=== PATIENT | female | born 1945 | race American Indian/Alaskan Native ===

== ENCOUNTER 2018-07-26 10:26 | Inpatient (IN) | payer MEDICARE ==
[2018-07-26] MEDS ORDERED: Albuterol-Ipratrop 3 mg / 0.5 (3 ml) UD IH STA (10:41)
[2018-07-26 11:10] LABS: EOS % 0.1 % (1.5-5.0); GRAN # 7.51 (1.4-6.5); GRAN % 81.1 % (50.0-68.0); HEMOGLOBIN 11.7 g/dL (12.0-16.0); MEAN CELL VOLUME 101.2 fl (80.0-105.0); MEAN CORPUSCULAR HEMOGLOBIN 27.7 pg (25.0-35.0); MEAN CORPUSCULAR HGB CONC 27.4 g/dl (31.0-37.0); MEAN PLATELET VOLUME 10.4 fl (7.0-11.0); MONO # 0.7 (0.1-0.6); MONO % 7.8 % (1.0-6.0); RBC 4.22 10^6/uL (3.5-6.1); RED CELL DISTRIBUTION WIDTH 15.2 % (11.5-14.5); WHITE BLOOD COUNT 9.3 10^3/uL (4.5-11.0)
[2018-07-26 11:15] LABS: VENOUS BLOOD GAS BASE EXCESS 18.9 mmol/L (0.0-2.0); VENOUS BLOOD GAS PO2 48 mm/Hg (30-55)
[2018-07-26 11:18] LABS: VENOUS BLOOD PH 7.18 (7.32-7.43)
[2018-07-26 11:19] LABS: INR 1.14; PARTIAL THROMBOPLASTIN TIME 35.7 Seconds (25.1-36.5); PROTHROMBIN TIME 13.1 SECONDS (9.4-12.5)
[2018-07-26 11:34] LABS: TROPONIN I 0.03 ng/mL
[2018-07-26 11:36] LABS: URINE BILIRUBIN SMALL (NEGATIVE); URINE BLOOD SMALL (NEGATIVE); URINE GLUCOSE (UA) NEGATIVE (NEGATIVE); URINE LEUKOCYTE ESTERASE NEGATIVE Leu/uL (NEGATIVE); URINE PROTEIN 100 mg/dL (<30 mg/dL); URINE UROBILINOGEN 0.2 E.U./dL (<1 E.U./dL)
[2018-07-26 11:38] LABS: URINE APPEARANCE CLEAR (CLEAR); URINE COLOR YELLOW (YELLOW)
[2018-07-26 11:48] LABS: URINE BACTERIA TRACE (NEG); URINE EPITHELIAL CELLS 0 - 2 /hpf (0-5); URINE HYALINE CAST 0 - 2 /hpf; URINE WBC NEGATIVE /hpf (0-6)
[2018-07-26 11:54] LABS: ALBUMIN 3.6 g/dL (3.0-4.8); ALT/SGPT 38 U/L (7-56); AST/SGOT 54 U/L (14-36); BLOOD UREA NITROGEN 20 mg/dL (7-21); CALCIUM 9.2 mg/dL (8.4-10.5); GFR NON-AFRICAN AMERICAN > 60
--- NOTE | 2018-07-26 12:06 | CT ---
Date of service: 07/26/2018 PROCEDURE: CT HEAD WITHOUT CONTRAST. HISTORY: weak COMPARISON: None available. TECHNIQUE: Axial computed tomography images were obtained through the head/brain without intravenous contrast. Radiation dose: Total exam DLP = 946.24 mGy-cm. This CT exam was performed using one or more of the following dose reduction techniques: Automated exposure control, adjustment of the mA and/or kV according to patient size, and/or use of iterative reconstruction technique. FINDINGS: HEMORRHAGE: No intracranial hemorrhage. BRAIN: The patel-white matter differentiation is well preserved. There is no mass effect or definitive edema pattern appreciated including the cortex. There is proportional expansion of the ventriculosulcal and cisternal spaces however in a pattern most compatible with diffuse cerebral atrophy. No suspicious extra-axial fluid collection is identified in the midline brain anatomy appears grossly nonfocal as imaged. VENTRICLES: Unremarkable. No hydrocephalus. CALVARIUM: Unremarkable. PARANASAL SINUSES: Pattern suspicious for prior left middle turbinectomy and nasal antrostomy. Limited volume is seen related to the left maxillary sinus with partial opacification noted. MASTOID AIR CELLS: Unremarkable as visualized. No inflammatory changes. OTHER FINDINGS: None. IMPRESSION: Limited diffuse cerebral atrophy with no acute intracranial findings appreciable. Questionable postop change left middle turbinates and maxillary ostium with partial calcification of a small appearing left maxillary sinus noted.
--- NOTE | 2018-07-26 12:17 | ED PDOC ---
Arrival/HPI - General Chief Complaint: Shortness Of Breath Time Seen by Provider: 07/26/18 10:30 Historian: Patient EM Caveat: Other (confused) - History of Present Illness Narrative History of Present Illness (Text): 07/26/18 12:27 73 year old female, who presents to the emergency department complaining of shortness of breath earlier this morning. Neighbor found patient on the floor and called 911. Patient states she did not lose consciousness, she just sat herself on the floor because she was having trouble breathing. She uses an oxygen at home. Patient denies smoking or ETOH abuse. Patient seems confused and has never been to this hospital before. HPI and ROS are limited due to patients clinical condition. Time/Duration: Prior to Arrival Symptom Onset: Gradual Symptom Course: Unchanged Activities at Onset: Light Context: Home Associated Symptoms (Text): 07/26/18 12:49 very poor historian. Arrived via ambulance. Neighbor called 911 when she found patient on the floor. Past Medical History - Provider Review Nursing Documentation Reviewed: Yes - Infectious Disease Hx of Infectious Diseases: None - Reproductive Menopause: Yes - Cardiac Hx Congestive Heart Failure: Yes - Pulmonary Hx Chronic Obstructive Pulmonary Disease (COPD): Yes - Psychiatric Hx Substance Use: No - Anesthesia Hx Anesthesia: No Family/Social History - Physician Review Nursing Documentation Reviewed: Yes Family/Social History: No Known Family HX Smoking Status: Former Smoker Hx Alcohol Use: No Hx Substance Use: No Allergies/Home Meds Allergies/Adverse Reactions: Allergies No Known Allergies Allergy (Verified 07/26/18 10:39) Review of Systems - Review of Systems Systems not reviewed;Unavailable: Other (confused) Respiratory: SOB Physical Exam Vital Signs Reviewed: Yes Vital Signs Temp Pulse Resp BP Pulse Ox 07/26/18 12:01 97.5 F L 75 20 101/60 95 07/26/18 10:26 96 F L 85 28 H 129/70 86 L Temperature: Afebrile Blood Pressure: Normal Pulse: Regular Respiratory Rate: Tachypneic Appearance: Positive for: Well-Appearing, Non-Toxic, Comfortable, Other (obese) Pain Distress: None Mental Status: Positive for: Confused - Systems Exam Head: Present: Atraumatic, Normocephalic Pupils: Present: PERRL Extroacular Muscles: Present: EOMI Conjunctiva: Present: Normal Mouth: Present: Moist Mucous Membranes Pharnyx: No: ERYTHEMA, EXUDATE, TONSILS ENLARGED Neck: Present: Normal Range of Motion Respiratory/Chest: Present: Respiratory Distress (mild respiratory distress), Wheezes (mild wheezes bilaterally ), Decreased Breath Sounds. No: Accessory Muscle Use, Rales, Retracting, Rhonchi, Tender to Palpation Cardiovascular: Present: Regular Rate and Rhythm, Normal S1, S2. No: Murmurs Abdomen: No: Tenderness, Distention, Peritoneal Signs Back: Present: Normal Inspection Upper Extremity: Present: Normal Inspection. No: Cyanosis, Edema Lower Extremity: Present: Normal Inspection. No: Edema, CALF TENDERNESS Neurological: Present: GCS=15, CN II-XII Intact, Speech Normal, Motor Func Grossly Intact Skin: Present: Warm, Dry, Normal Color. No: Rashes Psychiatric: Present: Alert Medical Decision Making ED Course and Treatment: 07/26/18 12:14 Impression: 73 year old female who presents to the emergency department complaining of shortness of breath. Plan: -- VBG -- Head CT w/o contrast -- EKG -- Labs -- Chest X-ray -- Duoneb -- Fernández -- Urinalysis -- Urinalysis w/ micro -- Reassess and disposition Progress Notes: 07/26/18 12:[address] reviewed by radiologist, shows: IMPRESSION: Limited diffuse cerebral atrophy with no acute intracranial findings appreciable. Questionable postop change left middle turbinates and maxillary o stium with partial calcification of a small appearing left maxillary sinus noted. 07/26/18 12:50 EKG shows normal sinus rhythm rate approximately [address] or T-wave changes. 07/26/18 13:34 Chest X-ray reviewed by radiologist, shows: IMPRESSION: No active disease. - Lab Interpretations Lab Results: 07/26/18 10:55 07/26/18 10:55 Lab Results 07/26/18 11:30: Urine Color Yellow, Urine Appearance Clear, Urine pH 6.0, Ur Specific [place] >= 1.030, Urine Protein 100 H, Urine Glucose (UA) Negative, Urine Ketones 15 H, Urine Blood Small H, Urine Nitrate Negative, Urine Bilirubin Small H, Urine Urobilinogen 0.2, Ur Leukocyte Esterase Negative, Urine RBC 1 - 3, Urine WBC Negative, Ur Epithelial Cells 0 - 2, Urine Bacteria Trace, Hyaline Casts 0 - 2 07/26/18 10:55: pO2 48, VBG pH 7.18 L*, VBG pCO2 145.0 H*, VBG HCO3 54.1 H, VBG Total CO2 58.6 H, VBG O2 Sat (Calc) 79.6 H, VBG Base Excess 18.9 H, VBG Potassium 4.1, Sodium 145.0, Chloride 99.0, Glucose 103, Lactate 1.4, FiO2 21.0, Venous Blood Potassium 4.1 07/26/18 10:55: Alcohol, Quantitative < 10 07/26/18 10:55: Sodium 144, Chloride 94 L, Potassium 4.2, Carbon Dioxide 49 H, Anion Gap 5 L, BUN 20, Creatinine 0.9, Est GFR ( Amer) > 60, Est GFR (Non-Af Amer) > 60, Random Glucose 107, Calcium 9.2, Phosphorus 4.4, Magnesium 2.2, Total Bilirubin 0.6, AST 54 H, ALT 38, Alkaline Phosphatase 116, Lactate Dehydrogenase 587, Total Creatine Kinase 170, Troponin I 0.03, Total Protein 7.4, Albumin 3.6, Globulin 3.8, Albumin/Globulin Ratio 1.0 L 07/26/18 10:55: PT 13.1 H, INR 1.14, APTT 35.7 07/26/18 10:55: WBC 9.3, RBC 4.22, Hgb 11.7 L, Hct 42.7, MCV 101.2, MCH 27.7, MCHC 27.4 L, RDW 15.2 H, Plt Count 171, MPV 10.4, Gran % 81.1 H, Lymph % (Auto) 11.0 L, Arroyo % (Auto) 7.8 H, Eos % (Auto) 0.1 L, Baso % (Auto) 0.0, Gran # 7.51 H, Lymph # (Auto) 1.0 L, Arroyo # (Auto) 0.7 H, Eos # (Auto) 0.0, Baso # (Auto) 0.00 I have reviewed the lab results: Yes - RAD Interpretation Radiology Orders: 07/26/18 10:39 HEAD W/O CONTRAST [CT] Stat 07/26/18 10:40 CHEST PORTABLE [RAD] Stat Photogrammetry Airplane Pilot: Radiologist - EKG Interpretation Interpreted by ED Physician: Yes Type: 12 lead EKG - Medication Orders Current Medication Orders: Discontinued Medications Albuterol/Ipratropium (Duoneb 3 Mg/0.5 Mg (3 Ml) Ud) 3 ml IH ONCE STA Stop: 07/26/18 10:42 Last Admin: 07/26/18 11:03 Dose: 3 ml - Scribe Statement The provider has reviewed the documentation as recorded by the Vanibsaad Bailey Provider Scribe Attestation: All medical record entries made by the Scribe were at my direction and personally dictated by me. I have reviewed the chart and agree that the record accurately reflects my personal performance of the history, physical exam, medical decision making, and the department course for this patient. I have also personally directed, reviewed, and agree with the discharge instructions and disposition. Disposition/Present on Arrival - Present on Arrival Any Indicators Present on Arrival: No History of DVT/PE: No History of Uncontrolled Diabetes: No Urinary Catheter: No History of Decub. Ulcer: No History Surgical Site Infection Following: None - Disposition Have Diagnosis and Disposition been Completed?: Yes Diagnosis: Dyspnea, Dementia, Altered mental status, COPD exacerbation, Weakness Disposition: HOSPITALIZED Disposition Time: 13:09 Patient Plan: Observation Patient Problems: Current Active Problems Problem Status Onset Altered mental status Acute COPD exacerbation Acute Dementia Acute Dyspnea Acute Weakness Acute Condition: FAIR
--- NOTE | 2018-07-26 13:33 | RAD ---
Date of service: 07/26/2018 HISTORY: weak COMPARISON: 03/25/2018 FINDINGS: LUNGS: No active pulmonary disease. PLEURA: No significant pleural effusion identified, no pneumothorax apparent. CARDIOVASCULAR: No aortic atherosclerotic calcification present. Moderate cardiomegaly and aortic tortuosity no pulmonary vascular congestion. OSSEOUS STRUCTURES: No significant abnormalities. VISUALIZED UPPER ABDOMEN: Normal. OTHER FINDINGS: None. IMPRESSION: No active disease.
[2018-07-26] MEDS ORDERED: Albuterol-Ipratrop 3 mg / 0.5 (3 ml) UD ONE (16:11)
[2018-07-26 17:35] VITALS: BMI 37.5
[2018-07-26] MEDS ORDERED: Pneumococcal 23-Valent Vaccine IM ONE (17:35)
[2018-07-26] MEDS ORDERED: Influenza Vaccine 60 mcg/0.5 mL SYR (4YR UP) IM ONE (17:35)
[2018-07-26] MEDS: Albuterol-Ipratrop 3 mg / 0.5 (3 ml) UD IH SCH (18:59)
[2018-07-26] MEDS: MethylPREDNISolone 40 mg Vial IVP SCH (22:24)
--- NOTE | 2018-07-26 23:50 | CON ---
DATE: 07/26/2018 PULMONARY CONSULTATION REFERRING PHYSICIAN: Dr. Martinez REASON FOR CONSULT: Chronic lung disease, may have sleep apnea syndrome. HISTORY OF PRESENT ILLNESS: This is a 73-year-old female with past medical history significant for chronic obstructive lung disease, also history of leg swelling in the past, apparently had a fall at home sitting on the floor, neighbors called 911 and brought her to ER. Been having cough and shortness of breath. No chest pain. No abdominal pain. No dysuria. Has leg swelling. Admitted to have snoring and daytime sleepiness. PAST MEDICAL HISTORY: Chronic lung disease, obesity. ALLERGIES: NONE KNOWN. SOCIAL HISTORY: Stopped smoking many years ago. Denied any alcohol use. FAMILY HISTORY: No significant cardiopulmonary disease reported. MEDICATIONS: She is on DuoNeb every 6 hours, Pepcid 40 mg daily, Solu-Medrol 40 mg every 12 hours, Tylenol p.r.n. basis. REVIEW OF SYSTEM: No headache. Had some rhinitis, cough, shortness of breath. No chest pain. No abdominal pain. No dysuria. Does have leg swelling. Admitted to have snoring, daytime sleepy. PHYSICAL EXAMINATION: GENERAL: No acute distress. VITAL SIGNS: Temp is 98, heart rate is 95, respiratory rate is 24, blood pressure 140/71, pulse ox 95% on nasal cannula. HEENT: Moist mucous membrane. Crowded airway. Mallampati score is 4. NECK: Supple. No JVD. LUNGS: Have scattered rhonchi and few wheezing. HEART: S1 and S2. ABDOMEN: Soft, nontender, nondistended. EXTREMITIES: Does have edema. NEUROLOGIC: Awake, alert, follows simple commands. LABORATORY DATA: Shows hemoglobin 11.7, hematocrit 42.7, WBC 9.3, platelet is 171. INR 1.14, PTT is 36. Blood gases, VBG shows pH 7.18, pCO2 is 148 and O2 is 48. Sodium 144, potassium 4.2, chloride 94, bicarbonate 49, BUN 20, creatinine 0.9, glucose 107, calcium 9.2, phosphorus 4.2, magnesium 2.2, total bili 0.6, AST 54, ALT 38, alk phos is 116. Troponin 0.03. Albumin 3.6. Urinalysis shows blood is small, wbc's negative. Alcohol level is zero. CAT scan of the head is done which shows partial opacification and a small appearing left maxillary sinus. Chest x-ray shows no active disease. IMPRESSION AND PLAN: Chronic obstructive lung disease, status post fall, rule out sinusitis, may have sleep apnea syndrome, hypoventilation syndrome. Case discussed with Dr. Martinez. Continue steroids. Add inhaled bronchodilators. Antibiotics, gastric prophylaxis, deep venous thrombosis prophylaxis. We will place her on BiPAP of 12/6 with 40% oxygen. Follow up ABG, chest x-ray, CBC, CMP in the morning. We will also order BNP, procalcitonin, echocardiogram. The patient should be on monitored floor with CO2 retention and acidosis. Thank you and we will follow with you. Oh Gonzáles MD
[2018-07-27] MEDS: Albuterol-Ipratrop 3 mg / 0.5 (3 ml) UD IH SCH ×4 (01:28→21:18)
--- NOTE | 2018-07-27 07:55 | CARD ---
APPROVED REPORT Date of service: 07/26/2018 EKG Measurement Heart [id number] <Conclusion> Normal sinus rhythm NSSTW changes Baseline artifact
[2018-07-27 07:58] LABS: HEMOGLOBIN 11.1 g/dL (12.0-16.0); MEAN CELL VOLUME 98.8 fl (80.0-105.0); MEAN CORPUSCULAR HEMOGLOBIN 27.3 pg (25.0-35.0); MEAN CORPUSCULAR HGB CONC 27.6 g/dl (31.0-37.0); RBC 4.07 10^6/uL (3.5-6.1); RED CELL DISTRIBUTION WIDTH 15.1 % (11.5-14.5); WHITE BLOOD COUNT 7.3 10^3/uL (4.5-11.0)
[2018-07-27 07:59] LABS: IRON 46 ug/dL (45-180)
[2018-07-27 08:06] LABS: B-TYPE NATRIURETIC PEPTIDE 807 pg/mL (0-450)
[2018-07-27 08:09] LABS: % IRON SATURATION 18 % (20-55); TOTAL IRON BINDING CAPACITY 259 ug/dL (265-497)
--- NOTE | 2018-07-27 08:09 | HP ---
DATE OF EXAM: 07/26/2018 CHIEF COMPLAINT: Shortness of breath and coughing. HISTORY OF PRESENT ILLNESS: Ms Maricel Woody is a 73 years old female with history of asthma, came to emergency department complaining of shortness of breath; neighbor found the patient on the floor, called 911. The patient states that she did not lose consciousness. She just sat herself on the floor because she was having trouble breathing. She uses oxygen at home. The patient denies smoking or ethanol. The patient seems confused, but has never been to this hospital before. No fevers. No chills. No hematuria or hematochezia. PAST MEDICAL HISTORY: COPD, congestive heart failure, obesity. HABITS: Never smoked. No drugs. No ethanol. ALLERGIES: PATIENT IS NOT ALLERGIC WITH ANY MEDICATIONS. REVIEW OF SYSTEMS: The patient was seen and examined at bedside in the emergency room, having shortness of breath, looks little bit confused. No fevers, no chills. No hematuria or hematochezia. No headache, no dizziness. PHYSICAL EXAMINATION: VITAL SIGNS: Temperature 97.5, pulse 75, respiratory rate 20, blood pressure 101/60, pulse oximetry 95%. HEENT: Head: Normocephalic, atraumatic. Eyes: PERRLA. Extraocular muscles are intact. Conjunctivae clear. Nose: Patent. NECK: Supple. No carotid bruit. No JVD or thyromegaly. CHEST: Bilaterally symmetrical. HEART: S1 and S2 positive. LUNGS: Mild respiratory distress. Wheezing mild. Bilaterally decreased breath sounds. Not using accessory muscles. ABDOMEN: Soft. Bowel sounds positive. No organomegaly. EXTREMITIES: No edema, no cyanosis. NEUROLOGIC: Patient is awake and alert. Follows simple commands. LABORATORY DATA: White blood cell 9.3, hemoglobin 11.7, hematocrit 42.7, platelets 171,000. Sodium 144, potassium 4.2, BUN 20, creatinine 0.9, glucose 107. ASSESSMENT AND PLAN: Ms. Shari Woody is a 73 years old female with history of anemia, hypochloremia, asthma, obesity who came with shortness of breath. CAT scan of the head done. Chest x-ray done, reviewed by me. According to CAT scan of the chest, no active disease. Discussion done with Dr. Gonzáles, cloth desizing range operator chief critical care. Started on albuterol. Lovenox given for deep vein thrombosis prophylaxis by Dr. Gonzáles. Pepcid given for gastrointestinal prophylaxis. Started on Solu-Medrol. Dr. Gonzáles started antibiotics. Duplex of lower extremity ordered. Repeat labs. We will follow up. Bernice Martinez MD
[2018-07-27 08:10] LABS: LDL CHOLESTEROL 171 mg/dL (0-129)
[2018-07-27 08:36] LABS: ALB/GLOB RATIO 0.9 (1.1-1.8); ALBUMIN 3.4 g/dL (3.0-4.8); ALT/SGPT 41 U/L (7-56); AST/SGOT 54 U/L (14-36); BLOOD UREA NITROGEN 24 mg/dL (7-21); CALCIUM 9.2 mg/dL (8.4-10.5); GFR NON-AFRICAN AMERICAN > 60; HDL CHOLESTEROL 33 mg/dL (29-60)
[2018-07-27] MEDS: Enoxaparin 40 mg Syringe SC SCH (10:43)
[2018-07-27] MEDS: MethylPREDNISolone 40 mg Vial IVP SCH ×2 (10:44→21:32)
--- NOTE | 2018-07-27 12:38 | CP.PCM.APN ---
Subjective - Date & Time of Evaluation Date of Evaluation: 07/27/18 Time of Evaluation: 09:00 - Subjective Subjective: Pt seen and examined at bedside. She is resting comfortably, in no acute distress. Objective - Vital Signs/Intake and Output Vital Signs (last 24 hours): Temp Pulse Resp BP Pulse Ox 97.6 F 72 18 142/81 97 07/27/18 06:00 07/27/18 06:00 07/27/18 06:00 07/27/18 06:00 07/27/18 06:00 Intake and Output: 07/27/18 07/27/18 06:59 18:59 Intake Total 120 Output Total 400 Balance -280 - Medications Medications: Current Medications Acetaminophen (Tylenol 325mg Tab) 650 mg PO Q4H PRN PRN Reason: pain fever Albuterol/Ipratropium (Duoneb 3 Mg/0.5 Mg (3 Ml) Ud) 3 ml IH [id number] [facility] Last Admin: 07/27/18 08:54 Dose: 3 ml Enoxaparin Sodium (Lovenox) 40 mg SC DAILY [facility]; Protocol Last Admin: 07/27/18 10:43 Dose: 40 mg Famotidine (Pepcid) 40 mg PO HS [facility] Last Admin: 07/26/18 22:24 Dose: 40 mg Ampicillin Sodium/Sulbactam (Sodium 3 gm/ Sodium Chloride) 100 mls @ 200 mls/hr IVPB Q8 [facility] Last Admin: 07/27/18 06:11 Dose: 200 mls/hr Methylprednisolone (Solu-Medrol) 40 mg IVP Q12 [facility] Last Admin: 07/27/18 10:44 Dose: 40 mg - Labs Labs: 07/27/18 07:30 07/27/18 07:30 PT 13.1 SECONDS (9.4-12.5) H 07/26/18 10:55 INR 1.14 07/26/18 10:55 APTT 35.7 Seconds (25.1-36.5) 07/26/18 10:55 - Constitutional Appears: Well, No Acute Distress - Head Exam Head Exam: ATRAUMATIC - Eye Exam Eye Exam: Normal appearance - ENT Exam ENT Exam: Normal Exam - Neck Exam Neck Exam: Full ROM - Respiratory Exam Respiratory Exam: Rhonchi - Cardiovascular Exam Cardiovascular Exam: REGULAR RHYTHM, +S1, +S2 - GI/Abdominal Exam GI & Abdominal Exam: Soft, Normal Bowel Sounds - Rectal Exam Rectal Exam: Deferred - Extremities Exam Extremities Exam: Normal Inspection - Neurological Exam Neurological Exam: Alert, Awake Assessment and Plan - Assessment and Plan (Free Text) Assessment: Pt is a 73 y.o. female w/ pmhx of COPD who presented in ED c/o shortness of breath. Neighbor found patient on the floor and called 911. Patient states she did not lose consciousness, she just sat herself on the floor because she was having trouble breathing. She is currently being treated for COPD exac. Impressions Chest X-Ray 07/26/18 10:40 IMPRESSION: No active disease. Plan: On Unasyn IV per Pulm recs IV Solumedrol 40mg IV q12h ECHO pending Pulmonology on consult Physical therapy pending - per MD, hoping to transfer pt to TCU depending on PT recommendation. Meds per MAR Will continue to follow
[2018-07-27 13:31] LABS: FOLATE 8.8 ng/mL
[2018-07-27] MEDS: Sildenafil 20 MG TAB PO SCH ×2 (13:46→17:46)
[2018-07-27] MEDS ORDERED: Albuterol-Ipratrop 3 mg / 0.5 (3 ml) UD IH PRN (13:48)
--- NOTE | 2018-07-27 14:07 | PN ---
DATE: 07/27/2018 PULMONARY PROGRESS NOTE REFERRING PHYSICIAN: Bernice Martinez MD SUBJECTIVE: The patient is sitting up in bed. Presently reports that shortness of breath is better, denies cough. No overnight events reported. The patient wore a BiPAP machine last night. Discussed with nursing staff, the patient has shortness of breath and hypoxemia. No hemoptysis, hematosis, hematuria, diarrhea or leg swelling reported. OBJECTIVE: GENERAL: No acute distress. VITAL SIGNS: Blood pressure 142/81, pulse 72, temperature 97.6 and oxygen saturation 97% on nasal cannula. HEENT: Moist mucous membranes. Crowded airway. Mallampati score of 4. NECK: Supple. No JVD. LUNGS: Scattered rhonchi bilaterally. CARDIOVASCULAR: S1 and S2 audible. ABDOMEN: Soft and nontender. No distention. No organomegaly. EXTREMITIES: Trace edema in bilateral lower extremities. NEUROLOGIC: Awake, alert, verbal. Follows simple commands. MEDICATIONS: Reviewed. Tylenol 650 mg every 4 hours p.r.n., DuoNeb 3 mL inhalation every 6 hours, ampicillin sulbactam 3 g every 8 hours, Lovenox 40 mg daily, Pepcid 40 mg at bedtime, Lasix 20 mg daily, Solu-Medrol 40 mg every 12 hours. LABORATORY DATA: Reviewed. WBC 7.3, RBC 4.07, hemoglobin 11.1, hematocrit 40.2 and platelets 192. Sodium 144, potassium 4.4, chloride 94, carbon dioxide 48, anion gap of 6, BUN 24, creatinine 0.8, GFR greater than 60, random glucose 121, calcium 9.2. Iron 46, TIBC 259, percent saturation 18. Total bilirubin 0.4, AST 54, ALT 41, alkaline phosphatase 105. ProBNP 807. Total protein 7.1, albumin 3.4, globulin 3.7, albumin-globulin ratio of 0.9. Triglycerides 87, 255, LDL cholesterol 171, HDL cholesterol 33 and TSH 1.19. DIAGNOSTIC DATA: Echocardiogram pending. IMPRESSION AND PLAN: Chronic obstructive lung disease, status post fall, possible sinusitis, may have sleep apnea syndrome, hypoventilation syndrome. Case discussed with nursing staff. We will give Lasix 20 mg IV push x1 dose now. We will start the patient on sildenafil 20 mg three times a day. We will order high-flow bubble oxygen titrate for pulse ox 88% to 90%. If patient's saturation and shortness of breath does not improve, then should place the patient on bilevel positive airway pressure as she tolerated bilevel positive airway pressure last night well. Will order V/Q scan to be done to rule out thromboembolic disease. Procalcitonin level pending. Stat ABG's ordered. New orders given to add Brovana and Pulmicort nebulizers. Will order labs to evaluate pulmonary hypertension. We recommend full PFT and sleep study as outpatient. This patient was seen and examined with Dr. Gonzáles. Discussed assessment and plan as described above. Thank you for this consult and we will follow with you. Hany Wilkes APN Oh Gonzáles MD [facility]
--- NOTE | 2018-07-27 16:06 | US ---
HISTORY: Leg pain and swelling. Evaluate for DVT PHYSICIAN(S): Bret Sanchez MD. TECHNIQUE: Duplex sonography and color-flow Doppler with graded compression were used to evaluate the deep venous systems of both lower extremities. FINDINGS: The visualized deep venous systems of both lower extremities are sonographically normal and compressible. Normal wave forms and augmentation are seen. There is no sonographic evidence for deep venous thrombosis in the visualized segments of both lower extremities. IMPRESSION: No sonographic evidence for deep venous thrombosis in the visualized segments of both lower extremities.
--- NOTE | 2018-07-27 16:29 | NM ---
Date of service: 07/27/2018 COMPARISON: Chest film 07/27/2018 TECHNIQUE: 32.1 mCi technetium 99-m DTPA aerosol. 3.2 mCI technetium 99-m MAA administered intravenously. FINDINGS: VENTILATION COMPONENT: Normal. PERFUSION COMPONENT: Normal. IMPRESSION: Lowprobability ventilation perfusion scan for pulmonary embolism.
[2018-07-27] MEDS: Arformoterol 15 mcg/2 ml Inh Sol IH SCH (21:17)
[2018-07-27] MEDS: Budesonide 0.5 mg/2 ml Inhal Susp UD IH SCH (21:18)
--- NOTE | 2018-07-28 01:44 | PN ---
DATE: 07/27/2018 SUBJECTIVE: The patient is a 73-year-old female. The patient was seen and examined at the bedside. Coughing better. Shortness of breath is better. No overnight event reported. The patient was on BiPAP machine last night and like that. No fever. No chills. No hematuria or hematochezia. PHYSICAL EXAMINATION VITAL SIGNS: Blood pressure 142/81, pulse 72, temperature 97.6, 97. HEENT: Head; normocephalic, atraumatic. Eyes; PERRLA. Extraocular muscles are intact. Conjunctivae clear. Nose patent. Mucous membranes moist. NECK: Supple. No carotid bruit. No JVD or thyromegaly. HEART: S1 and S2 positive. LUNGS: Scattered rhonchi bilaterally. ABDOMEN: Soft and nontender. No organomegaly. EXTREMITIES: Trace edema in bilateral extremities. NEUROLOGIC: The patient is awake and alert. Follows simple commands. MEDICATIONS: Tylenol, DuoNeb, inhaled, bronchodilator, ampicillin, sulbactam, Lovenox, Pepcid, Lasix, and Solu-Medrol tapering doses. LABORATORY DATA: White blood cell 7.3, hemoglobin 11.1, hematocrit 40.2, and platelets 144. BUN 24, creatinine 0.8, calcium 9.2. AST is 54, ALT 41. BNP 807. ASSESSMENT AND PLAN: Ms. Maricel Woody is a 73-year-old female with multiple medical problems, chronic obstructive lung disease, status post fall, obesity, sinusitis, sleep apnea syndrome, and hypoventilation syndrome. Getting Lasix. Tapering dose of steroid. Dr. Gonzáles put her on sildenafil 20 mg three times a day, order high flow oxygen. Gastrointestinal and deep venous thrombosis prophylaxis. Repeat labs. Out of bed. Physical therapy. We will follow up. Bernice Martinez MD MTDD
[2018-07-28] MEDS: Albuterol-Ipratrop 3 mg / 0.5 (3 ml) UD IH SCH ×4 (02:03→19:50)
[2018-07-28] MEDS: Arformoterol 15 mcg/2 ml Inh Sol IH SCH ×2 (08:06→19:49)
[2018-07-28] MEDS: Budesonide 0.5 mg/2 ml Inhal Susp UD IH SCH ×2 (08:06→19:49)
--- NOTE | 2018-07-28 09:00 | CARD ---
APPROVED REPORT Date of service: 07/27/2018 EXAM: Two-dimensional and M-mode echocardiogram with Doppler and color Doppler. Other Information Quality : AverageRhythm : INDICATION CHF 2D DIMENSIONS Left Atrium (2D)4.3 (1.6-4.0cm)IVSd1.1 (0.7-1.1cm) LVDd4.2 (3.9-5.9cm)PWd0.9 (0.7-1.1cm) LVDs2.7 (2.5-4.0cm)FS (%) 35.7 % LVEF (%)65.0 (>50%) M-Mode DIMENSIONS Aortic Root3.50 (2.2-3.7cm)Aortic Cusp Exc.1.90 (1.5-2.0cm) Aortic Valve AoV Peak Arltmcsf812.0cm/s Mitral Valve MV E Utiazwib80.2cm/sMV A Lvordjaj132.0cm/sE/A ratio0.8 TDI Lateral E' Peak V12.60cm/sMedial E' Peak V5.95cm/sE/Lateral E'7.2 E/Medial E'15.3 Pulmonary Valve PV Peak Cejgrzdh94.9cm/sPV Peak Grad.3mmHg Tricuspid Valve TR Peak [id number]/sRAP [id number] Peak Gr.82mmHg [id number] LEFT VENTRICLE The left ventricle is normal size. There is normal left ventricular wall thickness. The left ventricular function is normal. The left ventricular ejection fraction is within the normal range. There is normal LV segmental wall motion. RIGHT VENTRICLE The right ventricle is normal size. ATRIA The left atrium is mildly dilated. The right atrium is moderately dilated. The interatrial septum is intact with no evidence for an atrial septal defect. AORTIC VALVE The aortic valve is normal in structure. MITRAL VALVE The mitral valve is normal in structure. Mitral regurgitation is mild. TRICUSPID VALVE The tricuspid valve is normal in structure. There is mild tricuspid regurgitation. There is moderate-severe pulmonary hypertension. GREAT VESSELS The aortic root is normal in size. PERICARDIAL EFFUSION There is no pericardial effusion. <Conclusion> The left ventricle is normal size. There is normal left ventricular wall thickness. The left ventricular function is normal. Mitral regurgitation is mild. There is mild tricuspid regurgitation. There is moderate-severe pulmonary hypertension.
--- NOTE | 2018-07-28 09:13 | RAD ---
Date of service: 07/27/2018 HISTORY: Rule out Thromobolytic disease COMPARISON: 07/26/2018 TECHNIQUE: Chest PA and lateral FINDINGS: LUNGS: No active pulmonary disease. PLEURA: Small pleural effusions CARDIOVASCULAR: No aortic atherosclerotic calcification present. Normal cardiac size. No pulmonary vascular congestion. OSSEOUS STRUCTURES: No significant abnormalities. VISUALIZED UPPER ABDOMEN: Normal. OTHER FINDINGS: None. IMPRESSION: No active disease.
--- NOTE | 2018-07-28 10:16 | CP.PCM.APN ---
Subjective - Date & Time of Evaluation Date of Evaluation: 07/28/18 Time of Evaluation: 09:45 - Subjective Subjective: Pt seen and examined at bedside. She is awake and alert with periods of confusion. Denies chest pain or shortness of breath. She is in no acute distress. Objective - Vital Signs/Intake and Output Vital Signs (last 24 hours): Temp Pulse Resp BP Pulse Ox 97.8 F 57 L 20 138/73 95 07/28/18 06:00 07/28/18 06:00 07/28/18 06:00 07/28/18 06:00 07/28/18 06:00 Intake and Output: 07/28/18 07/28/18 06:59 18:59 Intake Total 960 Balance 960 - Medications Medications: Current Medications Acetaminophen (Tylenol 325mg Tab) 650 mg PO Q4H PRN PRN Reason: pain fever Albuterol/Ipratropium (Duoneb 3 Mg/0.5 Mg (3 Ml) Ud) 3 ml IH [id number] [facility] Last Admin: 07/28/18 08:06 Dose: 3 ml Albuterol/Ipratropium (Duoneb 3 Mg/0.5 Mg (3 Ml) Ud) 3 ml IH Q2H PRN PRN Reason: Shortness of Breath Arformoterol Tartrate (Brovana) 15 mcg IH [id number] [facility] Last Admin: 07/28/18 08:06 Dose: 15 mcg Budesonide (Pulmicort Respules) 0.5 mg IH [id number] [facility] Last Admin: 07/28/18 08:06 Dose: 0.5 mg Enoxaparin Sodium (Lovenox) 40 mg SC DAILY [facility]; Protocol Last Admin: 07/27/18 10:43 Dose: 40 mg Famotidine (Pepcid) 40 mg PO HS [facility] Last Admin: 07/27/18 21:31 Dose: 40 mg Furosemide (Lasix) 20 mg PO DAILY [facility] Ampicillin Sodium/Sulbactam (Sodium 3 gm/ Sodium Chloride) 100 mls @ 200 mls/hr IVPB Q8 [facility] Last Admin: 07/28/18 06:30 Dose: 200 mls/hr Methylprednisolone (Solu-Medrol) 40 mg IVP Q12 [facility] Last Admin: 07/27/18 21:32 Dose: 40 mg Sildenafil Citrate (Revatio) 20 mg PO TID [facility] Last Admin: 07/27/18 17:46 Dose: 20 mg - Labs Labs: 07/27/18 07:30 07/27/18 07:30 PT 13.1 SECONDS (9.4-12.5) H 07/26/18 10:55 INR 1.14 07/26/18 10:55 APTT 35.7 Seconds (25.1-36.5) 07/26/18 10:55 - Constitutional Appears: Well, No Acute Distress - Head Exam Head Exam: ATRAUMATIC - Eye Exam Eye Exam: Normal appearance - ENT Exam ENT Exam: Normal Exam - Neck Exam Neck Exam: Full ROM - Respiratory Exam Respiratory Exam: Decreased Breath Sounds - Cardiovascular Exam Cardiovascular Exam: REGULAR RHYTHM, +S1, +S2 - GI/Abdominal Exam GI & Abdominal Exam: Soft, Normal Bowel Sounds - Rectal Exam Rectal Exam: Deferred Assessment and Plan - Assessment and Plan (Free Text) Assessment: pt is a 73 y.o. female admitted for COPD. States that her breathing is better. Impressions Extremity Ultrasound 07/26/18 21:29 IMPRESSION: No sonographic evidence for deep venous thrombosis in the visualized segments of both lower extremities. Lung Scan Nuclear Medicine 07/27/18 12:56 IMPRESSION: Lowprobability ventilation perfusion scan for pulmonary embolism. Chest X-Ray 07/27/18 14:57 IMPRESSION: No active disease. Plan: Procal is <0.05 On Unasyn IV/Solumedrol Pulmonology on consult Meds per MAR Physical therapy pending SW/CM discharge planning - per MD, hoping to send pt to TCU when medically cleared. Will continue to follow
[2018-07-28] MEDS: MethylPREDNISolone 40 mg Vial IVP SCH ×2 (10:50→21:35)
[2018-07-28] MEDS: Enoxaparin 40 mg Syringe SC SCH (10:50)
[2018-07-28] MEDS: Sildenafil 20 MG TAB PO SCH ×3 (10:50→18:24)
[2018-07-28 12:01] LABS: ARTERIAL BLOOD GAS HEMOGLOBIN 10.8 g/dL (11.7-17.4); ARTERIAL BLOOD GAS O2 CAPACITY 14.8 mL/dl (16-24); ARTERIAL BLOOD GAS O2 CONTENT 14.4 ML/dl (15-23); ARTERIAL BLOOD GAS O2 SAT 97.6 % (95-98); ARTERIAL BLOOD GAS PH 7.37 (7.35-7.45)
[2018-07-28 12:03] LABS: ARTERIAL BLOOD GAS HCO3 53.2 mmol/L (21-28)
[2018-07-28 12:04] LABS: ARTERIAL BLOOD GAS PCO2 92 mm/Hg (35-45)
--- NOTE | 2018-07-28 13:29 | PN ---
PULMONARY PROGRESS NOTE DATE: 07/28/2018 REFERRING PHYSICIAN: Dr. Bernice Martinez SUBJECTIVE: The patient is sitting up in bed. Reports feeling better today. Improvement in shortness of breath. No cough reported. The patient wore BiPAP machine last night. No headache, rhinitis, chest pain, abdominal pain, nausea, vomiting, diarrhea, leg pain, or leg swelling reported. OBJECTIVE: GENERAL: No acute distress. VITAL SIGNS: Blood pressure 138/73, pulse 57, temperature 97.8, and oxygen saturation 95%. HEENT: Moist mucous membranes. Crowded airway. Mallampati score of 4. NECK: Supple. No JVD. LUNGS: Scattered rhonchi bilaterally. CARDIOVASCULAR: S1 and S2 audible. ABDOMEN: Soft and nontender. No distention. No organomegaly. EXTREMITIES: No bilateral lower extremity edema. NEUROLOGIC: Awake, alert, and verbal. Follows simple commands. MEDICATIONS: Reviewed. Tylenol 650 mg every 4 hours p.r.n. for fever, DuoNeb 3 mL inhalation every 6 hours p.r.n., DuoNeb 3 mL inhalation every 2 hours p.r.n., Augmentin 1 tab every 12 hours, Brovana 15 mcg every 12 hours, Pulmicort 0.5 mg every 12 hours, Lovenox 40 mg daily, Pepcid 40 mg at bedtime, Lasix 20 mg daily, Solu-Medrol 40 mg every 12 hours, and sildenafil 20 mg three times a day. LABORATORY DATA: Reviewed. PCO2 of 92, pO2 of 75, HCO3 of 53.2, ABG pH 7.37, and FiO2 of 40. HIV 1 and 2 antibody screen negative. Urine culture final, no growth, less than 1000. DIAGNOSTIC DATA: Chest x-ray shows no active disease. Lung VQ scan or lung perforation and ventilation scan shows low probability ventilation perfusion scan for pulmonary embolism. IMPRESSION AND PLAN: Chronic obstructive lung disease status post fall, possible sinusitis, may have sleep apnea syndrome, hypoventilation syndrome, pulmonary hypertension. Continue sildenafil as ordered. Monitor for hypotension, avoid strong vasodilators while on sildenafil. Ordered stat ABGs which were available for this dictation. The patient would benefit from physical therapy. Continue bilevel positive airway pressure use at bedtime, head of bed elevated at 45 degrees, sleep apnea precaution. Continue inhaled bronchodilators, steroids. We recommend the patient have full pulmonary function test and sleep study as outpatient. This patient was seen and examined with Dr. Gonzáles. Discussed assessment and plan as described above. Thank you for this consult. We will follow with you. Hany Wilkes APN Oh Gonzáles MD FLORA
[2018-07-28] MEDS: Amoxicillin-Clav 875-125 mg Tab PO SCH (21:35)
--- NOTE | 2018-07-29 02:02 | PN ---
DATE: 07/28/2018 SUBJECTIVE: This is a 73-year-old female. The patient was seen and examined at the bedside on 07/28/2018. Looks little bit better. Cough and shortness of breath are better. Awake and alert, but getting episodes of confusion. Last night used of BiPAP machine. No headache. No nausea, vomiting, or diarrhea. No swelling of the legs. PHYSICAL EXAMINATION: VITAL SIGNS: Temperature 98.6, pulse 67, blood pressure 130/70. HEENT: Head: Normocephalic and atraumatic. Eyes: PERRLA. Extraocular movements are intact. Conjunctivae clear. Nose patent. NECK: Supple. No carotid bruits. No JVD or thyromegaly. CHEST: Bilateral symmetrical. HEART: S1 and S2 positive. LUNGS: Clear to auscultation. ABDOMEN: Soft. Bowel sounds present. No organomegaly. EXTREMITIES: No edema. No cyanosis. NEUROLOGIC: The patient is awake and alert. Follows simple commands. MEDICATIONS: Tylenol, DuoNeb, Augmentin, Brovana, Pulmicort, Lovenox, Pepcid, Lasix, Solu-Medrol, sildenafil. LABORATORY DATA: HIV-1 and HIV-2 antibody screen negative. Urine cultures, no growth. ASSESSMENT AND PLAN: Ms. Maricel Woody is a 73-year-old female with multiple medical problems. Has exacerbation of chronic obstructive pulmonary disease. No sonographic evidence of deep vein thrombosis in the middle segment of both lower extremities. Lung scans are done. No deep venous thrombosis. No pulmonary embolism. The patient is on Unasyn and Solu-Medrol. Discussion done with nurse practitioner, Uriel Uriarte. Physical therapy evaluation was called. May be the patient will get benefits from transitional care unit. History of fall, may be sinusitis, sleep apnea syndrome, hypoventilation syndrome, pulmonary hypertension. The patient was started on sildenafil. Monitoring for hypotension because sildenafil is potent vasodilator. We will repeat labs. Continue bilevel positive airway pressure. Sleep apnea precautions. Discussion done with the nursing staff. We will follow up. Bernice Martinez MD
[2018-07-29] MEDS: Albuterol-Ipratrop 3 mg / 0.5 (3 ml) UD IH SCH ×4 (02:03→20:43)
[2018-07-29] MEDS: Budesonide 0.5 mg/2 ml Inhal Susp UD IH SCH ×2 (07:46→20:43)
[2018-07-29] MEDS: Arformoterol 15 mcg/2 ml Inh Sol IH SCH ×2 (07:46→20:42)
[2018-07-29 07:50] LABS: HEMOGLOBIN 11.2 g/dL (12.0-16.0); MEAN CELL VOLUME 98.6 fl (80.0-105.0); MEAN CORPUSCULAR HEMOGLOBIN 26.9 pg (25.0-35.0); MEAN CORPUSCULAR HGB CONC 27.3 g/dl (31.0-37.0); MEAN PLATELET VOLUME 10.5 fl (7.0-11.0); RBC 4.17 10^6/uL (3.5-6.1); RED CELL DISTRIBUTION WIDTH 15.4 % (11.5-14.5); WHITE BLOOD COUNT 9.4 10^3/uL (4.5-11.0)
[2018-07-29 08:18] LABS: ALB/GLOB RATIO 0.9 (1.1-1.8); ALBUMIN 3.3 g/dL (3.0-4.8); ALT/SGPT 39 U/L (7-56); AST/SGOT 48 U/L (14-36); BLOOD UREA NITROGEN 28 mg/dL (7-21); CALCIUM 9.1 mg/dL (8.4-10.5); GFR NON-AFRICAN AMERICAN > 60
[2018-07-29] MEDS: Amoxicillin-Clav 875-125 mg Tab PO SCH ×2 (10:14→21:00)
[2018-07-29] MEDS: Sildenafil 20 MG TAB PO SCH ×3 (10:14→20:05)
[2018-07-29] MEDS: Enoxaparin 40 mg Syringe SC SCH (10:14)
[2018-07-29] MEDS: MethylPREDNISolone 40 mg Vial IVP SCH ×2 (10:15→21:01)
--- NOTE | 2018-07-29 10:44 | CP.PCM.APN ---
Subjective - Date & Time of Evaluation Date of Evaluation: 07/29/18 Time of Evaluation: 09:15 - Subjective Subjective: Pt seen and examined at bedside. She is awake and alert. In no acute distress. Denies chest pain or shortness of breath. Objective - Vital Signs/Intake and Output Vital Signs (last 24 hours): Temp Pulse Resp BP Pulse Ox 97.8 F 64 18 132/61 97 07/29/18 06:00 07/29/18 06:00 07/29/18 06:00 07/29/18 10:14 07/29/18 06:00 Intake and Output: 07/29/18 07/29/18 06:59 18:59 Intake Total 600 Balance 600 - Medications Medications: Current Medications Acetaminophen (Tylenol 325mg Tab) 650 mg PO Q4H PRN PRN Reason: pain fever Albuterol/Ipratropium (Duoneb 3 Mg/0.5 Mg (3 Ml) Ud) 3 ml IH [id number] [facility] Last Admin: 07/29/18 07:46 Dose: 3 ml Albuterol/Ipratropium (Duoneb 3 Mg/0.5 Mg (3 Ml) Ud) 3 ml IH Q2H PRN PRN Reason: Shortness of Breath Amoxicillin/Clavulanate Potassium (Augmentin 875 Mg-125 Mg Tab) 1 tab PO Q12 [facility] Last Admin: 07/29/18 10:14 Dose: 1 tab Arformoterol Tartrate (Brovana) 15 mcg IH [id number] [facility] Last Admin: 07/29/18 07:46 Dose: 15 mcg Atorvastatin Calcium (Lipitor) 10 mg PO DIN [facility] Budesonide (Pulmicort Respules) 0.5 mg IH [id number] [facility] Last Admin: 07/29/18 07:46 Dose: 0.5 mg Cyanocobalamin (Vitamin B12 1000 Mcg/Ml Inj) 1,000 mcg IM DAILY [facility] Last Admin: 07/29/18 10:14 Dose: 1,000 mcg Enoxaparin Sodium (Lovenox) 40 mg SC DAILY [facility]; Protocol Last Admin: 07/29/18 10:14 Dose: 40 mg Famotidine (Pepcid) 40 mg PO HS [facility] Last Admin: 07/28/18 21:35 Dose: 40 mg Furosemide (Lasix) 20 mg PO DAILY [facility] Last Admin: 07/29/18 10:14 Dose: 20 mg Methylprednisolone (Solu-Medrol) 40 mg IVP Q12 [facility] Last Admin: 07/29/18 10:15 Dose: 40 mg Sildenafil Citrate (Revatio) 20 mg PO TID [facility] Last Admin: 07/29/18 10:14 Dose: 20 mg - Labs Labs: 07/29/18 07:15 07/29/18 07:15 PT 13.1 SECONDS (9.4-12.5) H 07/26/18 10:55 INR 1.14 07/26/18 10:55 APTT 35.7 Seconds (25.1-36.5) 07/26/18 10:55 - Constitutional Appears: Well, No Acute Distress - Head Exam Head Exam: ATRAUMATIC - Eye Exam Eye Exam: Normal appearance - ENT Exam ENT Exam: Mucous Membranes Moist, Normal Exam - Respiratory Exam Respiratory Exam: Clear to Ausculation Bilateral, NORMAL BREATHING PATTERN - Cardiovascular Exam Cardiovascular Exam: REGULAR RHYTHM, +S1, +S2 - GI/Abdominal Exam GI & Abdominal Exam: Soft, Normal Bowel Sounds - Rectal Exam Rectal Exam: Deferred - Extremities Exam Extremities Exam: Normal Inspection - Neurological Exam Neurological Exam: Alert, Awake Assessment and Plan - Assessment and Plan (Free Text) Assessment: Pt is a 73 y.o. female who is admitted for COPD and is s/p fall at home. D/W PMD, stated if pt remains medically stable will send to tcu hopefully on Wednesday. Plan: C/W nebulizer treatments/bipap/oxygen On Solumedrol IV Pulmonology on consult TCU eval Meds per MAR Will continue to follow
--- NOTE | 2018-07-29 12:36 | PN ---
PULMONARY PROGRESS NOTE DATE: 07/29/2018 REFERRING PHYSICIAN: Bernice Martinez MD SUBJECTIVE: Patient sitting up in bed, no acute distress, reports feeling better this morning. Denies shortness of breath. Denies any cough. No headache, rhinitis, chest pain, abdominal pain, nausea, vomiting, diarrhea, leg pain or leg swelling reported. OBJECTIVE: GENERAL: No acute distress. VITAL SIGNS: Blood pressure 132/61, pulse 64, temperature 97.8 and oxygen saturation 97%. HEENT: Moist mucous membranes. NECK: Supple. No JVD. RESPIRATORY: Few rhonchi bilaterally. CARDIOVASCULAR: S1 and S2, audible. ABDOMEN: Soft and nontender. No distention. No organomegaly. EXTREMITIES: No bilateral lower extremity edema. NEUROLOGIC: Awake, alert and verbal. Follows commands. MEDICATIONS: Reviewed. Tylenol 650 mg every 4 hours p.r.n. for pain or fever, DuoNeb 3 mL inhalations every 6 hours, DuoNeb 3 mL inhalation every 2 hours p.r.n., Augmentin 875 mg/125 mg every 12 hours, Brovana 15 mcg every 12 hours, Lipitor 10 mg at dinner, Pulmicort 0.5 mg every 12 hours, vitamin B12 1000 mcg IM daily, Lovenox 40 mg subcutaneous daily, Pepcid 40 mg at bedtime, Lasix 20 mg daily, Solu-Medrol 40 mg IV push every 12 hours and sildenafil 20 mg 3 times a day. LABORATORY DATA: Reviewed. WBC 9.4, RBC 4.17, hemoglobin 11.2, hematocrit 41.1 and platelets 208. Sodium 144, potassium 4.4, chloride 91, carbon dioxide 51, anion gap 6, BUN 28, creatinine 0.9, GFR greater than 60, random glucose 112, calcium 9.1, total bilirubin 0.4, AST 48, ALT 39, alkaline phosphatase 84, total protein 6.8, albumin 3.3, globulin 3.5 and albumin-globulin ratio 0.9. Procalcitonin less than 0.05. Urine culture final no growth, less than a 1000. IMPRESSION AND PLAN: Chronic obstructive lung disease status post fall, sinusitis may help sleep apnea syndrome, hyperventilation syndrome, pulmonary hypertension. Patient seems to be improving. Continue bilevel positive airway pressure use at bedtime, sleep apnea precaution, head of bed elevated at 45 degrees, continue inhaled bronchodilators, steroids, continue sildenafil for pulmonary hypertension, monitor for hypotension, avoid other vasodilators while on sildenafil. I believe this patient will benefit from physical therapy, out of bed to chair. We recommended this patient have full pulmonary function test and sleep study as outpatient. This patient was seen and examined with Dr. Gonzáles. Discussed assessment and plan as described above. Thank you for this consult. We will follow with you. Hany Wilkes APN Oh Gonzáles MD
[2018-07-30] MEDS: Albuterol-Ipratrop 3 mg / 0.5 (3 ml) UD IH SCH (01:24)
--- NOTE | 2018-07-30 04:13 | PN ---
DATE: 07/29/2018 SUBJECTIVE: The patient is a 73-year-old female. The patient was seen and examined at bedside on 07/29/2018, looking comfortable. No fevers. No chills. No hematuria or hematochezia. No swelling of the leg. No chest pain. No palpitation. Mental level is improving, but very slowly. PHYSICAL EXAMINATION: VITAL SIGNS: Blood pressure 130/60, temperature 97.8, oxygen saturation 97%. HEENT: Head: Normocephalic, atraumatic. Eyes: PERRLA. Extraocular muscles are intact. Conjunctivae clear. Nose patent. Mucous membranes moist. NECK: Supple. No carotid bruit. No JVD or thyromegaly. CHEST: Bilaterally symmetrical. HEART: S1 and S2 positive. LUNGS: Clear to auscultation. ABDOMEN: Soft. Bowel sounds positive. No organomegaly. EXTREMITIES: No edema. No cyanosis. NEUROLOGIC: The patient is awake, alert; follows simple commands. MEDICATIONS: Tylenol, DuoNeb, Augmentin, Lovenox, Pepcid, Solu-Medrol, sildenafil. LABORATORY DATA: White blood cell 9.4, hemoglobin 11.2, hematocrit 41.1. Sodium 145, potassium 4.4, BUN 28, creatinine 0.9, glucose 112, AST 48, ALT 39. ASSESSMENT AND PLAN: Ms. Shari Woody 73 years old female with multiple medical problems, chronic obstructive lung disease status post fall, history of sinusitis, sleep apnea syndrome, hypoventilation syndrome, obesity, pulmonary hypertension. The patient improving very slowly, getting physical therapy. Plan is to take patient to the TCU. Continue sildenafil. Monitor blood pressure. Gastrointestinal and deep venous thrombosis prophylaxes. Repeat labs. We will follow up. Bernice Martinez MD
[2018-07-30 08:50] LABS: GRAN # 6.41 (1.4-6.5); GRAN % 83.6 % (50.0-68.0); HEMOGLOBIN 11.2 g/dL (12.0-16.0); LYMPH # 0.7 (1.2-3.4); LYMPH % 9.6 % (22.0-35.0); MEAN CELL VOLUME 97.3 fl (80.0-105.0); MEAN CORPUSCULAR HEMOGLOBIN 27.1 pg (25.0-35.0); MEAN CORPUSCULAR HGB CONC 27.9 g/dl (31.0-37.0); MEAN PLATELET VOLUME 10.6 fl (7.0-11.0); MONO # 0.5 (0.1-0.6); MONO % 6.8 % (1.0-6.0); RBC 4.13 10^6/uL (3.5-6.1); RED CELL DISTRIBUTION WIDTH 15.3 % (11.5-14.5); WHITE BLOOD COUNT 7.7 10^3/uL (4.5-11.0)
[2018-07-30 09:28] LABS: ALB/GLOB RATIO 0.9 (1.1-1.8); ALBUMIN 3.1 g/dL (3.0-4.8); ALT/SGPT 51 U/L (7-56); AST/SGOT 44 U/L (14-36); BLOOD UREA NITROGEN 25 mg/dL (7-21); CALCIUM 8.8 mg/dL (8.4-10.5); GFR NON-AFRICAN AMERICAN > 60
[2018-07-30] MEDS: Enoxaparin 40 mg Syringe SC SCH (10:13)
[2018-07-30] MEDS: Amoxicillin-Clav 875-125 mg Tab PO SCH (10:15)
[2018-07-30] MEDS: Sildenafil 20 MG TAB PO SCH ×2 (10:16→14:00)
[2018-07-30] MEDS: MethylPREDNISolone 40 mg Vial IVP SCH (10:17)
[2018-07-30 15:21] VITALS: BP 108/57; PULSE 79; RESP 18; TEMP 98.8; O2SAT 94
--- NOTE | 2018-07-30 19:09 | PN ---
DATE: 07/30/2018 PULMONARY PROGRESS NOTE REFERRING PHYSICIAN: Bernice Martinez MD SUBJECTIVE: The patient is lying in bed. Family at the bedside. No acute distress. No overnight events reported. The patient reports that she use CPAP machine last night, reports feeling much better today. No headache, rhinitis, cough, shortness of breath, chest pain, abdominal pain, nausea, vomiting, diarrhea, leg pain, or leg swelling reported. PHYSICAL EXAMINATION GENERAL: No acute distress. VITAL SIGNS: Blood pressure 108/57, pulse 79, temperature 98.8, and oxygen saturation 94. HEENT: Moist mucous membranes. NECK: Supple. No JVD. RESPIRATORY: Positive rhonchi bilaterally. CARDIOVASCULAR: S1 and S2 audible. ABDOMEN: Soft and nontender. No distension. No organomegaly. EXTREMITIES: No bilateral lower extremity edema. NEUROLOGIC: Awake, alert and verbal. Follows commands. MEDICATIONS: Reviewed. Tylenol 650 mg every 4 hours p.r.n., DuoNeb 3 mL inhalation every 12 hours, DuoNeb 3 mL inhalation every 2 hours p.r.n., Augmentin 875 mg 1 tab every 12 hours, Brovana 15 mcg every 12 hours, Lipitor 10 mg at dinner, Pulmicort 0.5 mg every 12 hours, vitamin B12 1000 mcg IM daily, Lovenox 40 mg subcutaneous daily, Pepcid 40 mg at bedtime, Lasix 20 mg daily, Solu-Medrol 40 mg every 12 hours and sildenafil 20 mg p.o. 3 times a day. LABORATORY DATA: Reviewed. WBC 7.7, RBC 4.13, hemoglobin 11.2, hematocrit 40.2 and platelets 205. Sodium 139, potassium 4.3, chloride 91, carbon dioxide 47, anion gap 5, BUN 25, creatinine 0.8, GFR greater than 60, random glucose 101, calcium 8.8, total bilirubin 0.5, AST 44, ALT 51, alkaline phosphatase 76, total protein 6.4, albumin 3.1, globulin 3.3 and albumin-globulin ratio 0.9. IMPRESSION AND PLAN: Chronic obstructive lung disease status post fall, sinusitis, suspected sleep apnea syndrome, hyperventilation syndrome, and pulmonary hypertension. The patient is doing well. Continue bilevel positive airway pressure use at bedtime, sleep apnea precaution, head of bed elevated at 45 degrees, continue inhaled bronchodilators, steroids, continue sildenafil for pulmonary hypertension, monitor the patient for hypotension, avoid other vasodilators while on sildenafil. Titrate oxygen via nasal cannula to pulse ox 90 or greater. The patient is scheduled to rehab unit. We recommended this patient have full pulmonary function test and sleep study as outpatient. This patient was seen and examined with Dr. Gonzáles. Discussed assessment and plan as described above. Thank you for this consult. We will follow with you. Hany Wilkes APN Oh Gonzáles MD
== END 2018-07-30 20:23 | DRG 192 ==
LOC: ED 10:26 → ERH 13:09 → OBSVTOIN 14:30 → ERH 16:28 → 5RSO 18:40 → INTOOBSV 07-28 23:41 → OBSVTOIN 07-28 23:41
PROVIDERS: ADMIT Internal Medicine; ATTEND Internal Medicine
PROC: 5A09457 Assistance with Respiratory Ventilation, 24-96 Consecutive Hours, Continuous Positive Airway Pressure (ICD-10-PCS; principal; 2018-07-26)
PROC: 3E0F7GC Introduction of Other Therapeutic Substance into Respiratory Tract, Via Natural or Artificial Opening (ICD-10-PCS; 2018-07-26)
DX: J44.1 Chronic obstructive pulmonary disease with (acute) exacerbation (principal); I27.20 Pulmonary hypertension, unspecified; R09.02 Hypoxemia; E66.9 Obesity, unspecified; Z99.81 Dependence on supplemental oxygen; Z68.37 Body mass index [BMI] 37.0-37.9, adult; F03.90 Unspecified dementia, unspecified severity, without behavioral disturbance, psychotic disturbance, mood disturbance, and anxiety; G47.30 Sleep apnea, unspecified; I50.9 Heart failure, unspecified; D64.9 Anemia, unspecified; Z87.891 Personal history of nicotine dependence

== ENCOUNTER 2018-07-30 19:52 | Inpatient (IN) | payer MEDICARE ==
[2018-07-30] MEDS: Amoxicillin-Clav 875-125 mg Tab PO SCH (22:55)
[2018-07-30] MEDS: MethylPREDNISolone 40 mg Vial IVP SCH (22:55)
[2018-07-31 00:32] VITALS: BMI 38.9
[2018-07-31] MEDS ORDERED: Pneumococcal 23-Valent Vaccine IM ONE (00:32)
[2018-07-31] MEDS ORDERED: Influenza Vaccine 60 mcg/0.5 mL SYR (4YR UP) IM ONE (00:32)
[2018-07-31] MEDS: Albuterol-Ipratrop 3 mg / 0.5 (3 ml) UD IH SCH ×4 (03:25→19:56)
[2018-07-31] MEDS: Enoxaparin 40 mg Syringe SC SCH (05:30)
[2018-07-31] MEDS: Budesonide 0.5 mg/2 ml Inhal Susp UD IH SCH ×2 (07:14→19:56)
[2018-07-31] MEDS: Arformoterol 15 mcg/2 ml Inh Sol IH SCH ×2 (07:15→19:56)
[2018-07-31 08:24] LABS: GRAN # 7.88 (1.4-6.5); GRAN % 86.2 % (50.0-68.0); HEMOGLOBIN 12.8 g/dL (12.0-16.0); LYMPH # 0.9 (1.2-3.4); LYMPH % 9.3 % (22.0-35.0); MEAN CELL VOLUME 96.6 fl (80.0-105.0); MEAN CORPUSCULAR HEMOGLOBIN 27.2 pg (25.0-35.0); MEAN CORPUSCULAR HGB CONC 28.2 g/dl (31.0-37.0); MEAN PLATELET VOLUME 10.6 fl (7.0-11.0); MONO # 0.4 (0.1-0.6); MONO % 4.5 % (1.0-6.0); RBC 4.7 10^6/uL (3.5-6.1); RED CELL DISTRIBUTION WIDTH 15.1 % (11.5-14.5); WHITE BLOOD COUNT 9.1 10^3/uL (4.5-11.0)
[2018-07-31 08:48] LABS: ALB/GLOB RATIO 1.1 (1.1-1.8); ALBUMIN 3.3 g/dL (3.0-4.8); ALT/SGPT 65 U/L (7-56); AST/SGOT 56 U/L (14-36); BLOOD UREA NITROGEN 26 mg/dL (7-21); CALCIUM 9.1 mg/dL (8.4-10.5); GFR NON-AFRICAN AMERICAN > 60
[2018-07-31] MEDS: Sildenafil 20 MG TAB PO SCH ×3 (09:34→17:08)
[2018-07-31] MEDS: MethylPREDNISolone 40 mg Vial IVP SCH ×2 (09:34→21:34)
[2018-07-31] MEDS: Amoxicillin-Clav 875-125 mg Tab PO SCH ×2 (09:34→21:34)
--- NOTE | 2018-08-01 00:08 | CON ---
DATE: 07/31/2018 REFERRING PHYSICIAN: Dr. Martinez. REASON FOR CONSULT: Chronic obstructive lung disease, sleep apnea syndrome. HISTORY OF PRESENT ILLNESS: This is a 73 years old female with chronic obstructive lung disease, morbid obesity, known sleep apnea syndrome, suspected hypoventilation syndrome, pulmonary hypertension, admitted to the acute side of the hospital with exacerbation of pulmonary hypertension, cough, shortness of breath, respiratory failure requiring noninvasive ventilation, was started on sildenafil, presently admitted to [facility] for continued care. She is sitting up on side of the bed, feels better, tolerated BiPAP well. No hemoptysis, hematemesis. No hematuria. Decreased leg swelling. PAST MEDICAL HISTORY: Significant for severe pulmonary hypertension, chronic obstructive lung disease, morbid obesity, hypoventilation syndrome. SOCIAL HISTORY: Stopped smoking few years ago. Denied any alcohol use. FAMILY HISTORY: No significant cardiopulmonary disease reported. ALLERGIES: NONE KNOWN. MEDICATIONS: She is on Augmentin 875 one tablet twice a day, Brovana inhaled twice a day, DuoNeb every 12 hours p.r.n. and every 6 hours [id number], Lasix 20 mg daily, Lipitor 10 mg daily, Lovenox 40 mg subcu daily, Pepcid 40 mg daily, Pulmicort inhaled twice a day, sildenafil 20 mg three times a day, Solu-Medrol 40 mg every 12 hours, Tylenol p.r.n., vitamin B12,1000 mcg IM daily. REVIEW OF SYSTEMS: No headache, no rhinitis. No cough, no sputum production. Short of breath with exertion. No chest pain. No abdominal pain or dysuria. Decreased leg swelling. PHYSICAL EXAMINATION: GENERAL: In no acute distress. VITAL SIGNS: Temperature is 98, heart rate is 80, respiratory rate is 18, blood pressure 127/69, pulse ox 90% on room air. HEENT: Moist mucous membranes. Crowded airway. NECK: Supple. No JVD. LUNGS: Few scattered rhonchi. HEART: S1, S2. ABDOMEN: Soft, nontender. No organomegaly. EXTREMITIES: Decreased edema. NEUROLOGIC: Awake, alert, and follows simple commands. LABORATORY DATA: Hemoglobin 12.8, hematocrit 45.4, WBC 9.1, platelet count is 188. Sodium 140, potassium 4.9, chloride 93, bicarbonate 45, BUN 26, creatinine 0.7, glucose 99, calcium is 9.1, total bili 0.6, AST 56, ALT 65, alk phos is 72. Albumin is 3.3. IMPRESSION AND PLAN: Chronic obstructive lung disease, status post fall, sinusitis, suspected sleep apnea syndrome, hypoventilation syndrome, pulmonary hypertension, morbid obesity. Spoke to family at bedside. All the questions answered. Continue BiPAP while sleeping. Keep head 45 degrees. Decrease Solu-Medrol. Continue pulmonary vasodilator. We will add inhibitor upon discharge as outpatient. Need repeat attended sleep study as an outpatient. Presently, her home machine is not working well, ending up with recurrent respiratory failure. Thank you and we will follow with you. Oh Gonzáles MD
--- NOTE | 2018-08-01 01:21 | HP ---
DATE OF EXAM: 07/31/2018 CHIEF COMPLAINT: Shortness of breath and coughing. HISTORY OF PRESENT ILLNESS: Ms. Maricel Woody is a 73-year-old female with past medical history of asthma, came into emergency department with the shortness of breath. Neighbor found the patient on the floor, called 911. The patient states that she did not lose consciousness. She just sat herself on the floor because she was having trouble breathing. She uses oxygen at home. The patient denies smoking or substance abuse or alcohol abuse. The patient was confused at the time of admission, got better. We admitted the patient, pulmonary consult called. Nebulizer treatment got improved. Transferred to TCU for physical therapy, deconditioning, further treatment. PAST MEDICAL HISTORY: As above. COPD, congestive heart failure and obesity. HABITS: Never smoked. No drugs. No ethanol. ALLERGIES: THE PATIENT IS ALLERGIC WITH MEDICATIONS. REVIEW OF SYSTEMS: The patient was seen and examined at bedside, looking comfortable. No fevers. No chills. No hematuria or hematochezia. No swelling of the leg. No headache. No chest pain. PHYSICAL EXAMINATION: VITAL SIGNS: Temperature 98.6, pulse 89, respiratory rate 18, blood pressure 127/69. HEENT: Head is normocephalic, atraumatic. Eyes: PERRLA. Extraocular muscles are intact. Conjunctivae clear. Nose patent. Mucous membranes are moist. NECK: Supple. No carotid bruit. No JVD or thyromegaly. CHEST: Bilaterally symmetrical. HEART: S1 and S2 positive. LUNGS: Clear to auscultation. ABDOMEN: Soft. Bowel sounds present. No organomegaly. EXTREMITIES: No edema. No cyanosis. NEUROLOGIC: The patient is awake, alert; follows simple commands. LABORATORY DATA: White blood cell 9.1, hemoglobin 12.8, hematocrit 45.4, platelets 188. Sodium 140, potassium 4.9, BUN 26, creatinine 0.7. Liver function tests 56. ASSESSMENT AND PLAN: Ms. Maricel Woody is a 73-year-old lady with hypochloremia, increased BUN, abnormal liver function test, was admitted on the medical floor and then transferred to TCU for a deconditioning, exacerbation of asthma, hypercholesterolemia, of gastroesophageal reflux disease, dyspepsia and deep venous thrombosis prophylaxis. Pulmonary hypertension getting from Dr. Gonzáles. Solu-Medrol tapering doses. Lung scan was done on medical floor. The patient has history of chronic obstructive lung disease status post fall, sinusitis, sleep apnea syndrome, hyperventilation syndrome. The patient is doing well, getting physical therapy, getting same medications. Starting sildenafil for pulmonary hypertension, but we have to observe for hypotension. Titrate oxygen via nasal cannula . Getting a physical therapy. We will repeat labs. We will follow up. Bernice Martinez MD MTDD
[2018-08-01] MEDS: Enoxaparin 40 mg Syringe SC SCH (05:13)
[2018-08-01] MEDS: Budesonide 0.5 mg/2 ml Inhal Susp UD IH SCH ×2 (07:18→23:03)
[2018-08-01] MEDS: Arformoterol 15 mcg/2 ml Inh Sol IH SCH ×2 (07:18→23:03)
[2018-08-01] MEDS: Albuterol-Ipratrop 3 mg / 0.5 (3 ml) UD IH SCH ×3 (07:18→21:45)
[2018-08-01] MEDS: Multi Vitamins 15 mL UD Oral Solution PO SCH (08:56)
[2018-08-01] MEDS: MethylPREDNISolone 40 mg Vial IVP SCH ×2 (09:00→21:23)
[2018-08-01] MEDS: Sildenafil 20 MG TAB PO SCH ×3 (09:01→18:10)
[2018-08-01] MEDS: Amoxicillin-Clav 875-125 mg Tab PO SCH (09:01)
--- NOTE | 2018-08-01 14:21 | PN ---
PULMONARY PROGRESS NOTE DATE: 08/01/2018 REFERRING PHYSICIAN: Bernice Martinez MD SUBJECTIVE: The patient is sitting up in bed, no acute distress, reports cough and shortness of breath have improved, reports using BiPAP machine last night. No headache, rhinitis, chest pain, abdominal pain, nausea, vomiting, diarrhea or leg pain reported. PHYSICAL EXAMINATION: GENERAL: No acute distress. VITAL SIGNS: Blood pressure 112/57, pulse 89 and temperature 98.6. HEENT: Moist mucous membranes. Crowded airway. NECK: Supple. No JVD. LUNGS: Few scattered rhonchi bilaterally. CARDIOVASCULAR: S1 and S2 audible. ABDOMEN: Soft and nontender. No organomegaly. EXTREMITIES: Decreasing edema to bilateral lower extremity. NEUROLOGIC: Awake, alert, and verbal. Follows commands. MEDICATIONS: Reviewed. Tylenol 650 every 4 hours p.r.n., DuoNeb 3 mL inhalation every 2 hours p.r.n., DuoNeb 3 mL inhalation every 6 hours p.r.n., Brovana 15 mcg every 12 hours, Lipitor 10 mg at dinner, Pulmicort 0.5 mg every 12 hours, vitamin B12 injection 1000 mcg daily, Lovenox 40 mg subcu daily, Pepcid 40 mg at dinner, Lasix 20 mg daily, Solu-Medrol 30 mg every 12 hours, multivitamin 15 mL daily and Revatio 20 mg 3 times a day. LABORATORY DATA: Reviewed. No new labs since yesterday. IMPRESSION AND PLAN: Chronic obstructive lung disease status post fall, sinusitis, suspected sleep apnea syndrome, hypoventilation syndrome, pulmonary hypertension, morbid obesity. Pulmonary point of view, continue bilevel positive airway pressure at bedtime, keep head of bed elevated at 45 degrees, sleep apnea precautions. Continue pulmonary vasodilator. The patient needs repeated attended sleep study as outpatient. Home machine is not working. We will refer to marriage and family social worker for sildenafil/ approval. This patient was seen and examined with Dr. Gonzáles. Discussed assessment and plan as described above. Thank you for this consult and we will follow with you. Hany Wilkes APN Oh Gonzáles MD [facility] # [id number]
[2018-08-01] MEDS: Albuterol-Ipratrop 3 mg / 0.5 (3 ml) UD IH PRN ×2 (18:33→21:19)
[2018-08-02] MEDS: Albuterol-Ipratrop 3 mg / 0.5 (3 ml) UD IH SCH ×3 (03:15→14:23)
[2018-08-02] MEDS: Enoxaparin 40 mg Syringe SC SCH (05:22)
[2018-08-02] MEDS: Budesonide 0.5 mg/2 ml Inhal Susp UD IH SCH ×2 (08:46→19:45)
[2018-08-02] MEDS: Arformoterol 15 mcg/2 ml Inh Sol IH SCH ×2 (08:46→19:45)
[2018-08-02] MEDS: MethylPREDNISolone 40 mg Vial IVP SCH ×3 (09:24→21:12)
[2018-08-02] MEDS: Sildenafil 20 MG TAB PO SCH ×3 (09:24→17:09)
[2018-08-02] MEDS: Multi Vitamins 15 mL UD Oral Solution PO SCH (17:09)
[2018-08-02] MEDS: Albuterol-Ipratrop 3 mg / 0.5 (3 ml) UD IH PRN (19:25)
--- NOTE | 2018-08-02 21:31 | PN ---
DATE: 08/02/2018 SUBJECTIVE: The patient was seen and examined at bedside on 08/02/2018, looking comfortable. No fevers. No chills. No hematuria or hematochezia. No swelling of the leg. No chest pain. No palpitation. Did physical therapy. Appetite is appropriately defined. PHYSICAL EXAMINATION: VITAL SIGNS: Temperature 97.1, pulse 70, blood pressure 97/57, and respiratory rate 18. HEENT: Head: Normocephalic, atraumatic. Eyes: PERRLA. Extraocular muscles are intact. Conjunctivae clear. Nose patent. Mucous membranes moist. NECK: Supple. No carotid bruit. No JVD or thyromegaly. CHEST: Bilaterally symmetrical. HEART: S1 and S2 positive. LUNGS: Clear to auscultation. ABDOMEN: Soft. Bowel sounds positive. No organomegaly. EXTREMITIES: No edema. No cyanosis. NEUROLOGIC: The patient is awake, alert; moving all four extremities. No focal deficits. MEDICATIONS: Brovana, DuoNeb, Lasix, Lipitor, Lovenox, Pepcid, Pulmicort, sildenafil, Solu-Medrol tapering doses, Tylenol. LABORATORY DATA: We do not have recent lab today, but reviewed old lab. ASSESSMENT AND PLAN: Ms. Shari Woody is a 73-year-old female with hyperchloremia, renal insufficiency, abnormal liver function test, obesity, has chronic obstructive lung disease, status post fall, sinusitis, sleep apnea syndrome, hypoventilation syndrome, pulmonary hypertension, using bilevel positive airway pressure at bedtime. Keep head elevated 45 degrees. Continue vasodilators. The patient needs repeat sleep study as outpatient as per Dr. Gonzáles. The patient is getting physical therapy. Repeat labs. We will follow up. Bernice Martinez MD
--- NOTE | 2018-08-02 21:37 | PN ---
DATE: 08/02/2018 PULMONARY PROGRESS NOTE REFERRING PHYSICIAN: Bernice Martinez MD SUBJECTIVE: She is lying in the bed. Night was unremarkable. Doing well in therapy. Tolerated BiPAP well. Decreased cough, shortness of breath. Decreased leg swelling. OBJECTIVE: GENERAL: In no acute distress. VITAL SIGNS: Temp is 98, heart rate 76, respiratory rate is 18, blood pressure 97/59, pulse ox 98% on nasal cannula. HEENT: Moist mucous membranes. No ulcer or thrush noted. NECK: Supple. No JVD. LUNGS: Have a fair airflow with rhonchi. HEART: S1, S2. ABDOMEN: Soft, nontender. No organomegaly. EXTREMITIES: No edema. NEUROLOGICAL: Awake, alert, follows simple commands. MEDICATIONS: Reviewed and noted. She is on Brovana inhaled twice a day, DuoNeb every 2 hours p.r.n. and every 6 hours [id number], Lasix 20 mg daily, Lipitor 10 mg daily, Lovenox 40 mg subcutaneous daily, multivitamins daily, Pepcid 40 mg daily, Pulmicort inhaled twice a day, sildenafil 20 mg 3 times a day, Solu-Medrol 20 mg every 12 hours, Tylenol p.r.n. basis, vitamin B12 1000 mcg IM daily. LABORATORY DATA: Reviewed and no new lab is available since yesterday. IMPRESSION AND PLAN: Chronic obstructive lung disease status post fall, sinusitis, suspected sleep apnea syndrome, hypoventilation syndrome, pulmonary hypertension, morbid obesity. Pulmonary point of view, doing well. We will discontinue Lasix, continue sildenafil, watch orthostatic hypotension, encourage bilevel positive airway pressure use. She will need attended sleep study upon discharge as outpatient; her old continuous positive airway pressure machine is not working. Also need pulmonary function test. Thank you and we will follow with you. Oh Gonzáles MD
[2018-08-03] MEDS: Albuterol-Ipratrop 3 mg / 0.5 (3 ml) UD IH PRN (00:11)
[2018-08-03] MEDS: Albuterol-Ipratrop 3 mg / 0.5 (3 ml) UD IH SCH ×4 (01:14→19:57)
[2018-08-03] MEDS: Enoxaparin 40 mg Syringe SC SCH (05:25)
[2018-08-03 06:48] LABS: ALB/GLOB RATIO 1.1 (1.1-1.8); ALBUMIN 2.8 g/dL (3.0-4.8); ALT/SGPT 77 U/L (7-56); AST/SGOT 48 U/L (14-36); BLOOD UREA NITROGEN 26 mg/dL (7-21); CALCIUM 9.1 mg/dL (8.4-10.5); GFR NON-AFRICAN AMERICAN > 60
[2018-08-03] MEDS: Multi Vitamins 15 mL UD Oral Solution PO SCH (08:04)
[2018-08-03] MEDS: Budesonide 0.5 mg/2 ml Inhal Susp UD IH SCH ×2 (08:43→19:57)
[2018-08-03] MEDS: Arformoterol 15 mcg/2 ml Inh Sol IH SCH ×2 (08:43→19:57)
--- NOTE | 2018-08-03 09:53 | PN ---
DATE: 08/01/2018 SUBJECTIVE: The patient is a 73-year-old female. The patient was seen and examined at the bedside, looking comfortable. No fever. No chills. No hematuria. No hematochezia. No swelling of the legs. No chest pain. No palpitations. PHYSICAL EXAMINATION: VITAL SIGNS: Temperature 98.1, pulse 89, respiratory rate 18, and blood pressure 120/70. HEENT: Head; normocephalic and atraumatic. Eyes; PERRLA. Extraocular muscles are intact. Conjunctivae clear. Nose patent. Mucous membranes moist. NECK: Supple. No carotid bruit. No JVD or thyromegaly. CHEST: Bilaterally symmetrical. HEART: S1 and S2 positive. LUNGS: Clear to auscultation. ABDOMEN: Soft. Bowel sounds present. No organomegaly. EXTREMITIES: No edema. No cyanosis. NEUROLOGIC: The patient is awake and alert. Moving all four extremities. No focal deficit. LABORATORY DATA: White blood cell 9.1, hemoglobin 13.8, hematocrit 45.4, and platelets 144. Sodium 140, potassium 4.9, and BUN and creatinine is increasing. Liver function test within normal limits. ASSESSMENT AND PLAN: Ms. Bong Butt is a 73-year-old female with a history of asthma, chronic obstructive pulmonary disease, came to the emergency room with shortness of breath. No fever. No chills. No hematuria. No hematochezia. No swelling of the legs. No headache or dizziness. The patient has a history of hyperchloremia, nicotine deficiency, renal failure, liver function test and transferred the patient to TCU, getting physical therapy. Gastrointestinal and deep venous thrombosis prophylaxes. Repeat labs. CBC and SMA-7 on Wednesday. Seen by Dr. Gonzáles . We will follow up. Bernice Martinez MD MTDD
[2018-08-03] MEDS: Sildenafil 20 MG TAB PO SCH ×3 (10:54→17:20)
[2018-08-03] MEDS: MethylPREDNISolone 40 mg Vial IVP SCH ×2 (10:54→21:27)
--- NOTE | 2018-08-03 15:00 | PN ---
DATE: 08/03/2018 PULMONARY PROGRESS NOTE REFERRING PHYSICIAN: Dr. Bernice Martinez. SUBJECTIVE: The patient is lying in bed. No acute distress. No overnight events reported. Reports no cough, shortness of breath, chest pain, abdominal pain, nausea, vomiting, diarrhea, leg pain, or leg swelling. No headache or rhinitis reported. The patient reports wearing a BiPAP machine last night. OBJECTIVE: GENERAL: No acute distress. VITAL SIGNS: Blood pressure 113/68, pulse 65, temperature 97.3, and oxygen saturation 100%. HEENT: Moist mucous membranes. NECK: Supple. No JVD. LUNGS: Few rhonchi bilaterally. CARDIOVASCULAR: S1 and S2 audible. ABDOMEN: Soft, nontender. No distention. No organomegaly. EXTREMITIES: No bilateral lower extremity edema. NEUROLOGICAL: Awake, alert, and verbal. Follows commands. MEDICATIONS: Reviewed. Tylenol 650 every 4 hours p.r.n. for moderate pain, DuoNeb 3 mL inhalation every 2 hours p.r.n., DuoNeb 3 mL every 6 hours, Brovana 15 mcg every 12 hours, Lipitor 10 mg at dinner, budesonide 0.5 mg every 12 hours, vitamin B12 1000 mcg IM daily, Lovenox 40 mg subcutaneous daily, Pepcid 40 mg at bedtime, Solu-Medrol 20 mg every 12 hours, multivitamin vitamin C 15 mL daily, and sildenafil 20 mg three times a day. LABORATORY DATA: Reviewed. Sodium 139, potassium 4.6, chloride 95, carbon dioxide 43, anion gap 6, BUN 26, creatinine 0.8, GFR greater than 60, random glucose 119, calcium 9.1, total bilirubin 0.3, AST 48, ALT 77, alkaline phosphatase 73, total protein 5.4, albumin 2.8, globulin 2.5, and albumin-globulin ratio 1.1. IMPRESSION AND PLAN: Chronic obstructive lung disease status post fall, sinusitis, suspected sleep apnea syndrome, hypoventilation syndrome, pulmonary hypertension, and morbid obesity. Pulmonary point of view, the patient is doing well. Continue to encourage bilevel positive airway pressure use at bedtime, sleep apnea precaution, head of bed elevated at 45 degrees. Watch for orthostatic hypotension. Continue sildenafil. The patient will need pulmonary function test and sleep study as outpatient as her continuous positive airway pressure machine at home is not working. This patient was seen and examined with Dr. Gonzáles. Discussed assessment and plan as described above. Thank you for this consult. We will follow with you. Hany Wilkes APN Oh Gonzáles MD
[2018-08-04] MEDS: Albuterol-Ipratrop 3 mg / 0.5 (3 ml) UD IH SCH ×4 (02:13→21:00)
[2018-08-04] MEDS: Enoxaparin 40 mg Syringe SC SCH (05:51)
[2018-08-04] MEDS: Arformoterol 15 mcg/2 ml Inh Sol IH SCH ×2 (07:13→21:00)
[2018-08-04] MEDS: Budesonide 0.5 mg/2 ml Inhal Susp UD IH SCH ×2 (07:13→21:00)
[2018-08-04] MEDS: Multi Vitamins 15 mL UD Oral Solution PO SCH (07:54)
[2018-08-04] MEDS: MethylPREDNISolone 40 mg Vial IVP SCH ×2 (10:03→21:19)
[2018-08-04] MEDS: Sildenafil 20 MG TAB PO SCH ×3 (10:03→17:06)
--- NOTE | 2018-08-04 10:55 | PN ---
DATE: 08/03/2018 SUBJECTIVE: The patient was seen and examined at bedside on 08/03/2018, looking comfortable. No fever. No chills. No hematuria or hematochezia. Cough is better. Shortness of breath is better. No headache. No dizziness. The patient reports reading BiPAP machine last night. No hematuria. No hematochezia. PHYSICAL EXAMINATION: VITAL SIGNS: Blood pressure 120/60, pulse 60, temperature 97.2, oxygen saturation 100%. HEENT: Head: Normocephalic, atraumatic. Eyes: PERRLA. Extraocular muscles are intact. Conjunctivae clear. Nose patent. Mucous membranes moist. NECK: Supple. No carotid bruit. No JVD or thyromegaly. LUNGS: Few rhonchi bilaterally. HEART: S1 and S2 positive. ABDOMEN: Soft, nontender. No masses. EXTREMITIES: No edema. No cyanosis. NEUROLOGIC: The patient is awake, alert, follows simple commands. MEDICATIONS: Tylenol, DuoNeb, Brovana, Lipitor, vitamins, Lovenox, Pepcid, Solu-Medrol, multivitamins, sildenafil. LABORATORY DATA: Sodium 139, potassium 4.6, BUN 26, creatinine 0.8, glucose 119, calcium 9.1. AST 48, ALT 77. ASSESSMENT AND PLAN: Ms. Maricel Woody is a 73-year-old female with chronic obstructive lung disease, status post fall, sinusitis, sleep apnea syndrome, hypoventilation syndrome, pulmonary hypertension, obesity, was admitted on the medical side, got better, transferred to transitional care unit for continuity of care and physical therapy. Continued to encourage her bilevel positive airway pressure use at bedtime, sleep apnea precautions, elevate head to 45 degrees. Continue sildenafil and all other medications. Gastrointestinal and deep venous thrombosis prophylaxes. Repeat labs. Appreciate Pulmonary notes. We will follow up. Bernice Martinez MD
--- NOTE | 2018-08-04 12:49 | PN ---
DATE: 08/04/2018 PULMONARY PROGRESS NOTE REFERRING PHYSICIAN: Bernice Martinez MD SUBJECTIVE: The patient was lying in bed. No acute distress. No overnight events reported. The patient reports wearing BiPAP machine last night. No headache, rhinitis, cough, shortness of breath, chest pain, abdominal pain, nausea, vomiting, diarrhea, leg pain or leg swelling reported. OBJECTIVE: GENERAL: No acute distress. VITAL SIGNS: Blood pressure 120/60, pulse 60, temperature 97.2 and oxygen saturation 100%. HEENT: Moist mucous membranes. Mallampati score of 4. NECK: Supple. No JVD. LUNGS: Clear bilaterally. CARDIOVASCULAR: S1 and S2, audible. ABDOMEN: Soft and nontender. No distention. No organomegaly. EXTREMITIES: No bilateral lower extremity edema. NEUROLOGIC: Awake, alert and verbal. Follows commands. MEDICATIONS: Reviewed. Tylenol 650 mg every 4 hours, DuoNeb 3 mL inhalation every 12 hours p.r.n., DuoNeb 3 mL inhalation every 6 hours, Brovana 15 mcg every 12 hours, Lipitor 10 mg at dinner, Pulmicort 0.5 mg every 12 hours, vitamin B12 1000 mcg IM daily, Lovenox 40 mg daily, Pepcid 40 mg at bedtime, Solu-Medrol 20 mg IV push every 12 hours, multivitamin/vitamin C 15 mL daily, sildenafil 20 mg three times a day. LABORATORY DATA: Reviewed. No new labs since yesterday. IMPRESSION AND PLAN: Chronic obstructive lung disease, status post fall, sinusitis, suspected sleep apnea syndrome, hypoventilation syndrome, pulmonary hypertension, and morbid obesity. Nursing reports desaturation with exertion. The patient's may need to go home on supplemental oxygen. Continue bilevel positive airway pressure use at bedtime, sleep apnea precaution, head of bed elevated at 45 degrees. Monitor for orthostatic hypotension. Continue sildenafil. The patient should be discharged home on sildenafil 20 mg three times a day. The patient will need pulmonary function test and sleep study as outpatient. This patient was seen and examined with Dr. Gonzáles. Discussed assessment and plan as described above. Thank you for this consult. We will follow with you. Hany Prudence, TRAFFIC SIGNAL [employer]PER[employer]IN[employer]NANCE Oh Gonzáles MD [facility] # [id number] MTDKathy
[2018-08-04] MEDS: Albuterol-Ipratrop 3 mg / 0.5 (3 ml) UD IH PRN (17:38)
--- NOTE | 2018-08-04 23:03 | PN ---
DATE: 08/04/2018 SUBJECTIVE: The patient is a 73-year-old female. The patient was seen and examined at the bedside on 08/04/2018, looking comfortable. No fever. No chills. No hematuria or hematochezia. No headache. No dizziness. No chest pain. No palpitation. No diarrhea or constipation. PHYSICAL EXAMINATION VITAL SIGNS: Blood pressure 120/60, pulse 60, temperature 97.2, oxygen saturation 100%. HEENT: Head: Normocephalic, atraumatic. Eyes: PERRLA. Extraocular muscles are intact. Conjunctivae clear. Nose patent. Mucous membranes moist. NECK: Supple. No carotid bruit. No JVD or thyromegaly. CHEST: Bilaterally symmetrical. HEART: S1 and S2 positive. LUNGS: Clear to auscultation bilaterally. ABDOMEN: Soft. Bowel sounds present. No organomegaly. EXTREMITIES: No edema. No cyanosis. NEUROLOGIC: The patient is awake and alert. Moving all four extremities. No focal deficits. MEDICATIONS: Tylenol, DuoNeb, Brovana, Lipitor, Pulmicort, Lovenox, Pepcid, Solu-Medrol, multivitamins, and sildenafil. LABORATORY DATA: We do not have recent labs today, but I reviewed old labs. ASSESSMENT AND PLAN: Ms. Maricel Woody is a 73-year-old female with chronic obstructive lung disease, status post fall, sinusitis, sleep apnea syndrome, hypoventilation syndrome, comorbid obesity, pulmonary hypertension,getting physical therapy in TCU. Continue bilevel positive airway pressure at bedtime. Sleep apnea precaution. Monitoring for hypotension. Continue present treatment. Gastrointestinal and deep venous thrombosis prophylaxes. Discussion done with nursing staff. We will follow up. Bernice Martinez MD
[2018-08-05] MEDS: Albuterol-Ipratrop 3 mg / 0.5 (3 ml) UD IH SCH ×4 (02:50→20:34)
[2018-08-05] MEDS: Enoxaparin 40 mg Syringe SC SCH (06:06)
[2018-08-05] MEDS: Arformoterol 15 mcg/2 ml Inh Sol IH SCH ×2 (07:20→20:34)
[2018-08-05] MEDS: Budesonide 0.5 mg/2 ml Inhal Susp UD IH SCH ×2 (07:23→20:35)
[2018-08-05] MEDS: Multi Vitamins 15 mL UD Oral Solution PO SCH (09:54)
[2018-08-05] MEDS: MethylPREDNISolone 40 mg Vial IVP SCH ×2 (09:55→21:15)
[2018-08-05] MEDS: Sildenafil 20 MG TAB PO SCH ×3 (09:55→17:51)
--- NOTE | 2018-08-05 12:01 | PN ---
DATE: 08/05/2018 PULMONARY PROGRESS NOTE REFERRING PHYSICIAN: Dr. Bernice Martinez SUBJECTIVE: The patient is seen in [facility]. No acute distress. No overnight events reported. The patient reports feeling well today. No headache, rhinitis, cough, shortness of breath, chest pain, abdominal pain, nausea, vomiting, diarrhea, leg pain, or leg swelling reported. OBJECTIVE: GENERAL: No acute distress. VITAL SIGNS: Blood pressure 109/73, pulse 75, temperature 98.7, and oxygen saturation 96%. HEENT: Moist mucous membranes. Mallampati score of 4. NECK: Supple. No JVD. LUNGS: Few rhonchi bilaterally. CARDIOVASCULAR: S1 and S2 audible. ABDOMEN: Soft and nontender. No distention. No organomegaly. EXTREMITIES: No bilateral lower extremity edema. NEUROLOGICAL: Awake, alert, and verbal. Follows commands. MEDICATIONS: Reviewed. Tylenol 650 mg every 4 hours p.r.n. for moderate pain, DuoNeb 3 mL inhalation every 2 hours p.r.n., DuoNeb 3 mL inhalation every 6 hours, Brovana 15 mcg every 12 hours, Lipitor 10 mg at dinner, Pulmicort 3.5 mg every 12 hours, vitamin B12 1000 mcg IM daily, Lovenox 40 mg subcutaneous daily, Pepcid 40 mg at bedtime, Solu-Medrol 20 mg IV push every 12 hours, multivitamin/vitamin C 15 mL daily, and sildenafil 20 mg three times a day. LABORATORY DATA: Reviewed. No new labs since yesterday. IMPRESSION AND PLAN: Chronic obstructive lung disease, status post fall, sinusitis, suspected sleep apnea syndrome, hypoventilation syndrome, pulmonary hypertension, and morbid obesity. Continue bilevel positive airway pressure use at bedtime, sleep apnea precaution, head of bed elevated at 45 degrees. Monitor for orthostatic hypotension. Continue sildenafil. Per nursing staff, the patient is pending discharge on the , has oxygen at home. The patient should be discharged on sildenafil 20 mg three times a day. Orders sent for social workers to work on authorization for sildenafil. The patient will need pulmonary function test and sleep study as outpatient. This patient was seen and examined with Dr. Gonzáles. Discussed assessment and plan as described above. Thank you for this consult. We will follow with you. Hany Wilkes APN Oh Gonzáles MD [facility] # [id number]
--- NOTE | 2018-08-06 01:22 | PN ---
DATE: 08/05/2018 SUBJECTIVE: The patient is a 73-year-old female. The patient was seen and examined at bedside on 08/05/2018. Looking comfortable. No fever. No chills. No hematuria. No hematochezia. No headache. No dizziness. No chest pain. No palpitation. Doing a physical therapy in the gym. Feeling better. Cough is better. Shortness of breath is better. PHYSICAL EXAMINATION: VITAL SIGNS: Blood pressure 109/73, pulse 70, respiratory rate 18, and temperature 98.6. HEENT: Head, normocephalic and atraumatic. Eyes, PERRLA. Extraocular muscles intact. Conjunctivae clear. Nose patent. Mucous membranes moist. NECK: Supple. No carotid bruit. No JVD or thyromegaly. CHEST: Bilaterally symmetrical. HEART: S1, S2 positive. LUNGS: Few rhonchi bilaterally. ABDOMEN: Soft. Nontender. No organomegaly. EXTREMITIES: No edema. No cyanosis. NEUROLOGIC: Awake and alert. Follows simple commands. MEDICATIONS: Tylenol, DuoNeb, Lipitor, Pulmicort, Pepcid, Solu-Medrol, and sildenafil. LABORATORY DATA: We do not have recent lab today, but reviewed old labs. ASSESSMENT AND PLAN: Ms. Maricel Woody is a 73-year-old lady with chronic obstructive lung disease, status post fall, sinusitis, sleep apnea syndrome, hypoventilation syndrome, obesity, pulmonary hypertension. Not able to do activities of daily living, getting physical therapy. Continue bilevel positive airway pressure use at bedtime, sleep apnea precautions. Gastrointestinal and deep venous thrombosis prophylaxes. Get physical therapy. Repeat laboratories. Discussion done with the patient and the patient's nursing staff. According to Physical Therapy, the patient needs a walker. I gave prescription only for the walker. We will follow up. Bernice Martinez MD
[2018-08-06] MEDS: Albuterol-Ipratrop 3 mg / 0.5 (3 ml) UD IH SCH ×4 (03:16→23:25)
[2018-08-06] MEDS: Enoxaparin 40 mg Syringe SC SCH (06:04)
[2018-08-06] MEDS: Multi Vitamins 15 mL UD Oral Solution PO SCH (08:06)
[2018-08-06] MEDS: Budesonide 0.5 mg/2 ml Inhal Susp UD IH SCH ×2 (08:53→20:08)
[2018-08-06] MEDS: Arformoterol 15 mcg/2 ml Inh Sol IH SCH ×2 (08:53→20:08)
[2018-08-06] MEDS: MethylPREDNISolone 40 mg Vial IVP SCH (09:28)
[2018-08-06] MEDS: Sildenafil 20 MG TAB PO SCH ×3 (09:28→21:11)
--- NOTE | 2018-08-06 16:43 | PN ---
DATE: 08/06/2018 PULMONARY PROGRESS NOTE REFERRING PHYSICIAN: Bernice Martinez MD SUBJECTIVE: The patient is sitting up at bedside, reports feeling well today, in no acute distress. No overnight events reported. Reports wearing BiPAP machine last night. No headache, rhinitis, cough, shortness of breath, chest pain, abdominal pain, nausea, vomiting, diarrhea, leg pain or leg swelling reported. OBJECTIVE: GENERAL: No acute distress. VITAL SIGNS: Blood pressure 105/53, temperature 98.6, pulse 71, and oxygen saturation 98% with nasal cannula. HEENT: Moist mucous membranes. Mallampati score of 4. NECK: Supple. No JVD. LUNGS: Few rhonchi bilaterally. CARDIOVASCULAR: S1 and S2, audible. ABDOMEN: Soft and nontender. No distention. No organomegaly. EXTREMITIES: No bilateral lower extremity edema. NEUROLOGIC: Awake, alert and verbal. Follows commands. MEDICATIONS: Reviewed. Tylenol 650 mg every 4 hours, DuoNeb 3 mL inhalation every 12 hours p.r.n., DuoNeb 3 mL inhalation every 6 hours, Brovana 15 mcg every 12 hours, Lipitor 10 mg at dinner, Pulmicort 0.5 mg every 12 hours, vitamin B12 1000 mcg IM, Lovenox 40 mg subcu daily, Pepcid 40 mg h.s., Solu-Medrol 20 mg every 12 hours, multivitamin/vitamin C 15 mL daily, sildenafil 20 mg every 8 hours. LABORATORY DATA: Reviewed. No new labs since yesterday. IMPRESSION AND PLAN: Chronic obstructive lung disease, status post fall, sinusitis, obstructive sleep apnea syndrome, pulmonary hypertension, morbid obesity. From pulmonary point of view, continue continuous positive airway pressure use at bedtime, sleep apnea precaution, head of bed elevated at 45 degrees. Continue sildenafil. Monitor for hypotension. The patient should be discharged with sildenafil 20 mg three times a day. We will decrease Solu-Medrol to 20 mg daily. The patient will need full pulmonary function test and attend a sleep study as outpatient. This patient was seen and examined with Dr. Gonzáles. Discussed assessment and plan as described above. Thank you for this consult. We will follow with you. Hany Prudence, B[employer] F[employer] DESK CLERK Oh Gonzáles MD [facility] # [id number] [facility]
--- NOTE | 2018-08-06 23:25 | PN ---
DATE: 08/06/2018 SUBJECTIVE: Maricel Woody is a 73-year-old female. She is in TCU, sitting in the bed. No respiratory distress. She is comfortable. She has a friend talking to her and she has no new complaints. She seems to be getting physical therapy, has oxygen nasal cannula and seems doing well. PHYSICAL EXAMINATION: VITAL SIGNS: Temperature is 98.2, heart rate 65, blood pressure is 102/62, respirations 18, and saturating 95% on 3 L nasal cannula. HEENT AND NECK: Normal. No JVD. No thyromegaly. CHEST: Clear bilateral. CARDIAC: First sound and second sound normal. ABDOMEN: Obese and nontender. EXTREMITIES: Trace edema. NEUROLOGIC: Normal. LABORATORY DATA: White count 9.1, hemoglobin 12.8, hematocrit 45.4, and platelets 188. Chemistry: Sodium 139, potassium 4.6, chloride 95, bicarb 43, BUN 26, and creatinine 0.8. Blood sugar 119. AST 48. ALT 77. IMPRESSION AND PLAN: 1. Generalized weakness and deconditioning. Continue physical therapy. 2. The patient has chronic obstructive pulmonary disease on oxygen, getting IV steroids. We will continue Solu-Medrol. Continue inhaled bronchodilators, Brovana, Pulmicort, and we will follow up on that. 3. Morbid obesity. Possible obstructive sleep apnea. Continue current therapy. 4. Hypercholesterolemia. The patient seems stable. Continue current medications. Also, the patient is noted to have history of pulmonary hypertension, on Revatio. We will Revatio 20 mg t.i.d. Continue current therapy. Follow up clinically. I am covering for Dr. Martinez. She will follow up in a couple of days on Wednesday on the patient. Alvin Coffman MD
[2018-08-07] MEDS: Albuterol-Ipratrop 3 mg / 0.5 (3 ml) UD IH SCH ×6 (02:01→19:36)
[2018-08-07] MEDS: Sildenafil 20 MG TAB PO SCH ×3 (05:09→21:20)
[2018-08-07] MEDS: Enoxaparin 40 mg Syringe SC SCH (05:09)
[2018-08-07] MEDS: Budesonide 0.5 mg/2 ml Inhal Susp UD IH SCH ×2 (07:22→19:36)
[2018-08-07] MEDS: Arformoterol 15 mcg/2 ml Inh Sol IH SCH ×2 (07:22→19:36)
[2018-08-07] MEDS: Multi Vitamins 15 mL UD Oral Solution PO SCH (08:01)
[2018-08-07] MEDS: MethylPREDNISolone 40 mg Vial IVP SCH (10:42)
[2018-08-07] MEDS: Albuterol-Ipratrop 3 mg / 0.5 (3 ml) UD IH PRN (16:13)
--- NOTE | 2018-08-07 20:39 | PN ---
DATE: 08/07/2018 PULMONARY PROGRESS NOTE REFERRING PHYSICIAN: Dr. Martinez SUBJECTIVE: She is lying in the bed, head at 45 degrees. Night was unremarkable, tolerated BiPAP well. No headache. No rhinitis. No nausea, vomiting, diarrhea, leg pain or leg swelling. OBJECTIVE: GENERAL: In no acute distress. VITAL SIGNS: Temperature is 98, heart rate 71, respiratory rate is 18, blood pressure 108/53, and pulse ox 97% on 3 liters nasal cannula. HEENT: Moist mucous membrane. Crowded airway. NECK: Supple. No JVD. LUNGS: Have fair airflow with rhonchi. HEART: S1 and S2. ABDOMEN: Soft, nontender. No organomegaly. EXTREMITIES: There is no edema. NEUROLOGIC: Awake, alert and follows simple command. MEDICATIONS: She is on Brovana inhaled twice a day, DuoNeb every 2 hours p.r.n., Lipitor 10 mg daily, multivitamins daily, Pepcid 40 mg daily, Pulmicort inhaled twice a day, Revatio 20 mg every 8 hours, Solu-Medrol 40 mg daily, Tylenol p.r.n. basis, and vitamin B12 1000 mcg IM daily. LABORATORY DATA: Reviewed and noted, no new lab is available since yesterday. IMPRESSION AND PLAN: Chronic obstructive lung disease, status post falls, history of sinusitis, obstructive sleep apnea syndrome, pulmonary hypertension, and morbid obesity. Pulmonary point of view, doing well. Continue sildenafil 20 mg every 8 hours, orthostatic hypotension precaution, taper off prednisone next few days, outpatient PFT. Gastric prophylaxis and deep venous thrombosis prophylaxis. Thank you and we will follow with you. Oh Gonzáles MD
--- NOTE | 2018-08-07 23:42 | PN ---
DATE: 08/07/2018 SUBJECTIVE: Maricel Woody seems stable, no distress, sitting on a chair, solving words, crossing, but otherwise no new complaints. She did have physical therapy and seems okay. PHYSICAL EXAMINATION: VITAL SIGNS: Temperature 98.5, heart rate 77, blood pressure , respirations 18, sat 100% on 3 liters. HEAD AND NECK: Normal. No JVD. No thyromegaly. CHEST: Clear bilaterally. CARDIAC: First sounds and second sounds are normal. ABDOMEN: Obese, nontender. EXTREMITIES: No edema. NEUROLOGIC: Normal. IMPRESSION AND PLAN: 1. Acute chronic obstructive pulmonary disease exacerbation, continue IV steroids. Continue inhaled bronchodilators. 2. Chronic obstructive pulmonary disease, obstructive sleep apnea, morbid obesity. Continue BiPAP. Followup with Dr. Gonzáles. 3. The patient also have hypercholesterolemia, generalized weakness, deconditioning. Continue physical therapy. Continue current therapy. Followup clinically. Alvin Coffman MD
[2018-08-08] MEDS: Albuterol-Ipratrop 3 mg / 0.5 (3 ml) UD IH SCH ×2 (03:02→07:14)
[2018-08-08] MEDS: Sildenafil 20 MG TAB PO SCH (05:22)
[2018-08-08] MEDS: Arformoterol 15 mcg/2 ml Inh Sol IH SCH (07:15)
[2018-08-08] MEDS: Multi Vitamins 15 mL UD Oral Solution PO SCH (07:51)
[2018-08-08] MEDS: MethylPREDNISolone 40 mg Vial IVP SCH (09:53)
[2018-08-08 10:30] VITALS: BP 113/62; RESP 18; TEMP 98.7
[2018-08-08 12:15] VITALS: PULSE 72; O2SAT 95
--- NOTE | 2018-08-08 12:55 | PN ---
DATE: 08/08/2018 PULMONARY PROGRESS NOTE REFERRING PHYSICIAN: Dr. Bernice Martinez. SUBJECTIVE: The patient is sitting up at bedside. No acute distress. No overnight events reported. The patient reports using BiPAP machine last night. No headache, rhinitis, cough, chest pain, abdominal pain, nausea, vomiting, diarrhea, leg pain, or leg swelling reported. Some shortness of breath with exertion is reported. OBJECTIVE: GENERAL: No acute distress. VITAL SIGNS: Blood pressure 113/62, pulse 81, temperature 98.7, and oxygen saturation 97% on nasal cannula. HEENT: Moist mucous membrane. Crowded airway. NECK: Supple. No JVD. LUNGS: Few rhonchi bilaterally. CARDIOVASCULAR: S1 and S2 audible. ABDOMEN: Soft and nontender. No distention. No organomegaly. EXTREMITIES: No bilateral lower extremity edema. NEUROLOGIC: Awake, alert, and verbal. Follows commands. MEDICATIONS: Reviewed. Tylenol 650 mg every 4 hours p.r.n., DuoNeb 3 mL inhalation every 2 hours p.r.n., DuoNeb 3 mL inhalation every 6 hours, Brovana 15 mcg every 12 hours, Lipitor 10 mg at dinner, Pulmicort 0.5 mg every 12 hours, vitamin B12 at 1000 mcg IM daily, Pepcid 40 mg at dinner, Solu-Medrol 20 mg daily, multivitamin 15 mL daily, and sildenafil 20 mg every 8 hours. LABORATORY DATA: Reviewed. No new labs. IMPRESSION AND PLAN: Chronic obstructive lung disease, status post falls, history of sinusitis, obstructive sleep apnea syndrome, pulmonary hypertension, and morbid obesity. Pulmonary point of view, the patient is doing well. Continue sildenafil 20 mg every 8 hours. Monitor for orthostatic hypotension. Orthostatic hypotension precaution. We will discontinue Solu-Medrol and start the patient on tapering dose of prednisone 10 mg. Gastric prophylaxis, deep venous thrombosis prophylaxis. The patient will need full pulmonary function test and sleep study as outpatient. Continue bilevel positive airway pressure use at bedtime. Head of bed elevated at 45 degrees. Sleep apnea precaution. This patient was seen and examined with Dr. Gonzáles. Discussed assessment and plan as described above. Thank you for this consult. We will follow with you. Hany Wilkes APN Oh Gonzáles MD [facility] # [id number]
--- NOTE | 2018-08-10 01:48 | DS ---
HISTORY OF PRESENT ILLNESS: The patient seems stable, no new complaints going home. She has no chest pain. No short of breath and doing good. The patient is ambulating with oxygen and she is doing well. The patient was admitted for physical therapy, gait training, strengthening, and rehabilitation plus continuation therapy for COPD and on 08/08/2018, the patient was discharged. PHYSICAL EXAMINATION: VITAL SIGNS: Temperature 98, heart rate 81, blood pressure 115/62, respirations 18, and saturation 95% of 3 L. HEAD AND NECK: Normal. No JVD. No thyromegaly. CHEST: Clear bilateral. CARDIAC: First sound and second sound normal. ABDOMEN: Obese and nontender. EXTREMITIES: No edema. NEUROLOGIC: Normal. LABORATORY STUDIES: Sodium 139, potassium 4.6, chloride 95, bicarb 26, creatinine 0.8, blood sugar 119, calcium 9.1, and bilirubin 0.3. AST 48, ALT 77, and total protein 5.4. White count 9.1, hemoglobin 12.8, hematocrit 45.4, and platelet is 188. The patient is stable and will be discharged home. DISCHARGE DIAGNOSES: 1. Generalized weakness and deconditioning, did well ambulating. 2. Chronic obstructive pulmonary disease exacerbation, she is on prednisone and we will give her Medrol Dosepak. We will give her Z-Deondre and continue her inhaled bronchodilators and nebulizer treatment at home. She have all of her medicines. 3. Morbid obesity, obstructive sleep apnea, chronic obstructive pulmonary disease, oxygen dependent, and continue current therapy. 4. Congestive heart failure, continue Lasix. Hypercholesterolemia, continue Lipitor. 5. Pulmonary hypertension, continue Revatio 20 mg t.i.d. PLAN: Continue current therapy. Follow up with Dr. Martinez within a week. Her medications on discharge; Coreg 3.125 b.i.d., vitamin D, DuoNeb, aspirin 81, Imdur 30, Lasix 20 p.o., Lipitor 10, Pepcid 40 p.o. daily, Medrol Dosepak, Protonix 40 once a day, Revatio 20 t.i.d., Singulair 10, Tylenol, vitamin B12, and lisinopril 2.5. The patient was discharged on 08/08/2018. Alvin Coffman MD [facility] # [id number]
== END 2018-08-08 13:20 | disposition home or self-care (01) | DRG 945 ==
LOC: TRCU 19:52
PROVIDERS: ADMIT Internal Medicine; ATTEND Internal Medicine
PROC: 5A09357 Assistance with Respiratory Ventilation, Less than 24 Consecutive Hours, Continuous Positive Airway Pressure (ICD-10-PCS; 2018-07-31)
PROC: F07Z9FZ Gait Training/Functional Ambulation Treatment using Assistive, Adaptive, Supportive or Protective Equipment (ICD-10-PCS; principal; 2018-08-01)
PROC: F07Z5ZZ Bed Mobility Treatment (ICD-10-PCS; 2018-08-01)
PROC: F07Z8ZZ Transfer Training Treatment (ICD-10-PCS; 2018-08-01)
PROC: F07L6YZ Therapeutic Exercise Treatment of Musculoskeletal System - Lower Back / Lower Extremity using Other Equipment (ICD-10-PCS; 2018-08-01)
PROC: F08Z1ZZ Dressing Techniques Treatment (ICD-10-PCS; 2018-08-03)
PROC: F08Z2FZ Grooming/Personal Hygiene Treatment using Assistive, Adaptive, Supportive or Protective Equipment (ICD-10-PCS; 2018-08-03)
DX: R53.1 Weakness (principal); J44.1 Chronic obstructive pulmonary disease with (acute) exacerbation; I50.9 Heart failure, unspecified; E78.00 Pure hypercholesterolemia, unspecified; G47.33 Obstructive sleep apnea (adult) (pediatric); E87.8 Other disorders of electrolyte and fluid balance, not elsewhere classified; N28.9 Disorder of kidney and ureter, unspecified; I27.20 Pulmonary hypertension, unspecified; J32.9 Chronic sinusitis, unspecified; R94.5 Abnormal results of liver function studies; E66.01 Morbid (severe) obesity due to excess calories; Z68.38 Body mass index [BMI] 38.0-38.9, adult; Z87.891 Personal history of nicotine dependence; Z99.81 Dependence on supplemental oxygen

== ENCOUNTER 2018-08-08 20:21 | Inpatient (IN) | payer MEDICARE ==
[2018-08-08] MEDS ORDERED: Albuterol-Ipratrop 3 mg / 0.5 (3 ml) UD IH STA ×2 (20:30→23:06)
[2018-08-08 20:40] LABS: HEMOGLOBIN 12.5 g/dL (12.0-16.0); MEAN CELL VOLUME 97.3 fl (80.0-105.0); MEAN CORPUSCULAR HEMOGLOBIN 27.7 pg (25.0-35.0); MEAN CORPUSCULAR HGB CONC 28.5 g/dl (31.0-37.0); MEAN PLATELET VOLUME 10.1 fl (7.0-11.0); RBC 4.51 10^6/uL (3.5-6.1); RED CELL DISTRIBUTION WIDTH 16.1 % (11.5-14.5); WHITE BLOOD COUNT 14.9 10^3/uL (4.5-11.0)
--- NOTE | 2018-08-08 20:48 | ED PDOC ---
Arrival/HPI - General Chief Complaint: Shortness Of Breath Time Seen by Provider: 08/08/18 20:26 Historian: Patient - History of Present Illness Narrative History of Present Illness (Text): 08/08/18 20:35 73 year old female, whose past medical history includes COPD, CHF, pulmonary hypertension, hyperventilation syndrome, sleep apnea, and morbid obesity, presents to the emergency department via EMS complaining of progressive sh ortness of breath for the past couple of days. Patient denies any fever, chills, chest pain, nausea, vomiting, diarrhea, urinary symptoms, leg pain, back pain, neck pain, headache, dizziness, or any other complaints. PMD: Dr. Martinez Time/Duration: Other (couple days) Symptom Onset: Gradual Activities at Onset: Light Context: Home Past Medical History - Provider Review Nursing Documentation Reviewed: Yes - Infectious Disease Hx of Infectious Diseases: None - Cardiac Hx Cardiac Disorders: Yes - Pulmonary Hx Chronic Obstructive Pulmonary Disease (COPD): Yes - Neurological Hx Neurological Disorder: Yes - HEENT Hx HEENT Disorder: Yes Hx Deafness: Yes ([place]) - Renal Hx Renal Disorder: No - Endocrine/Metabolic Hx Endocrine Disorders: No - Hematological/Oncological Hx Blood Disorders: No - Integumentary Hx Dermatological Disorder: Yes Other/Comment: 07-26-18 SLIGHT PITTING EDEMA +1.DARKENED SKIN DISCOLORATION TO LE,ASHY,THIN FLAKY VERY DRY SKIN.ELONGATED TOENAILS,CALLOUSED BILATERAL HEEL. - Musculoskeletal/Rheumatological Hx Falls: Yes (RECENT FALL 07-26-18) - Gastrointestinal Hx Gastrointestinal Disorders: No - Genitourinary/Gynecological Hx Genitourinary Disorders: Yes - Psychiatric Hx Psychophysiologic Disorder: Yes (USED TO SMOKE AND DRINK. QUIT 40 YRS AGO.) Hx Substance Use: No - Surgical History Hx Hysterectomy: Yes (2013) - Anesthesia Hx Anesthesia: No Family/Social History - Physician Review Nursing Documentation Reviewed: Yes Family/Social History: No Known Family HX Smoking Status: Former Smoker Hx Alcohol Use: Yes (SOCIALLY /QUIT) Hx Substance Use: No Allergies/Home Meds Allergies/Adverse Reactions: Allergies No Known Allergies Allergy (Verified 07/30/18 21:17) Home Medications: Home Meds Medication Instructions Recorded Confirmed Albuterol HFA [Ventolin HFA 90 1 puff IH Q4 07/26/18 07/31/18 mcg/actuation (8 g)] Aspirin [Ecotrin] 81 mg PO DAILY 07/26/18 07/31/18 Carvedilol [Coreg] 1.25 mg PO BID 07/26/18 07/31/18 Enalapril Maleate [Vasotec] 2.5 mg PO DAILY 07/26/18 07/31/18 Ergocalciferol (Vitamin D2) 50,000 unit PO QWK 07/26/18 07/31/18 [Vitamin D2] Isosorbide Dinitrate 30 mg PO DAILY 07/26/18 07/31/18 Montelukast Sodium [Singulair] 10 mg PO DAILY 07/26/18 07/31/18 Review of Systems - Physician Review All systems were reviewed & negative as marked: Yes - Review of Systems Constitutional: absent: Fevers, Other (Chills) Respiratory: SOB Cardiovascular: absent: Chest Pain Gastrointestinal: absent: Diarrhea, Nausea, Vomiting Genitourinary Female: absent: Dysuria, Frequency, Hematuria Musculoskeletal: absent: Back Pain, Neck Pain, Other (leg pain) Neurological: absent: Headache, Dizziness Physical Exam Vital Signs Reviewed: Yes Vital Signs Temp Pulse Resp BP Pulse Ox 08/08/18 20:23 97.9 F 108 H 22 158/93 H 100 Temperature: Afebrile Blood Pressure: Hypertensive Pulse: Tachycardic Respiratory Rate: Normal Appearance: Positive for: Well-Appearing, Non-Toxic, Comfortable Pain Distress: Mild Mental Status: Positive for: Alert and Oriented X 3 - Systems Exam Head: Present: Atraumatic, Normocephalic Pupils: Present: PERRL Extroacular Muscles: Present: EOMI Conjunctiva: Present: Normal Mouth: Present: Moist Mucous Membranes Neck: Present: Normal Range of Motion Respiratory/Chest: Present: Decreased Breath Sounds (bilaterally). No: Respirat ory Distress, Accessory Muscle Use Cardiovascular: Present: Tachycardic. No: Murmurs Abdomen: No: Tenderness, Distention, Peritoneal Signs Back: Present: Normal Inspection Upper Extremity: Present: Normal Inspection. No: Cyanosis, Edema Lower Extremity: Present: Normal Inspection. No: Edema Neurological: Present: GCS=15, CN II-XII Intact, Speech Normal Skin: Present: Warm, Dry, Normal Color. No: Rashes Psychiatric: Present: Alert, Oriented x 3, Normal Insight, Normal Concentration Medical Decision Making ED Course and Treatment: 08/08/18 20:35 Impression: 73 year old female presents complaining of progressiveCXR shortness of breath for the past couple of days. PE shows decrease breath sounds bilaterally and tachycardic. Plan: -- EKG -- Labs -- Chest X-ray -- Douneb, Solu-medrol -- ABG -- Blood Culture -- Reassess and disposition Prior Visits: Notes and results from previous visits were reviewed. Progress Notes: 08/08/18 20:32 EKG shows Sinus Tachycardia at 108 BPM with non-specific ST/T changes. Interpreted by me. 08/08/18 21:40 CXR Impression: As read by me, cardiomegaly. 08/08/18 23:[address] Coffman covering Dr. Martinez who is aware and agrees with the plan. Accepts patient into Dr. Martinez's service. Requests Dr. Gonzáles for consult. - Lab Interpretations Lab Results: 08/08/18 20:32 Lab Results 08/08/18 20:32: WBC 14.9 H D, RBC 4.51, Hgb 12.5, Hct 43.9, MCV 97.3, MCH 27.7, MCHC 28.5 L, RDW 16.1 H, Plt Count 263, MPV 10.1 I have reviewed the lab results: Yes - RAD Interpretation Radiology Orders: 08/08/18 20:30 CHEST PORTABLE [RAD] Stat Cardroom Manager: ED Physician - EKG Interpretation Interpreted by ED Physician: Yes Type: 12 lead EKG - Medication Orders Current Medication Orders: Discontinued Medications Albuterol/Ipratropium (Duoneb 3 Mg/0.5 Mg (3 Ml) Ud) 3 ml IH ONCE STA Stop: 08/08/18 20:31 Last Admin: 08/08/18 20:43 Dose: 3 ml Methylprednisolone (Solu-Medrol) 125 mg IVP ONCE ONE Stop: 08/08/18 20:31 Last Admin: 08/08/18 20:43 Dose: 125 mg IVP Administration Document 08/08/18 20:43 IT (Rec: 08/08/18 20:43 IT [id number]) Charges for Administration # of IVP Administrations 1 - Scribe Statement The provider has reviewed the documentation as recorded by the Alivia Stuart Provider Vanibe Attestation: All medical record entries made by the Scribe were at my direction and personally dictated by me. I have reviewed the chart and agree that the record accurately reflects my personal performance of the history, physical exam, medical decision making, and the department course for this patient. I have also personally directed, reviewed, and agree with the discharge instructions and disposition. Disposition/Present on Arrival - Present on Arrival Any Indicators Present on Arrival: No History of DVT/PE: No History of Uncontrolled Diabetes: No Urinary Catheter: No History of Decub. Ulcer: No History Surgical Site Infection Following: None - Disposition Have Diagnosis and Disposition been Completed?: Yes Diagnosis: COPD exacerbation Disposition: HOSPITALIZED Disposition Time: 23:23 Patient Plan: Admission Condition: STABLE Referrals: Bernice Martinez MD [Primary Care Provider] - Follow up with primary Forms: [employer] (Wallisian)
[2018-08-08 20:50] LABS: INR 0.99; PARTIAL THROMBOPLASTIN TIME 32.7 Seconds (25.1-36.5); PROTHROMBIN TIME 11.3 SECONDS (9.4-12.5)
[2018-08-08 20:59] LABS: ALB/GLOB RATIO 1.2 (1.1-1.8); ALBUMIN 3.9 g/dL (3.0-4.8); ALT/SGPT 120 U/L (7-56); AST/SGOT 66 U/L (14-36); BLOOD UREA NITROGEN 26 mg/dL (7-21); CALCIUM 9.6 mg/dL (8.4-10.5); GFR NON-AFRICAN AMERICAN > 60; TROPONIN I 0.03 ng/mL
[2018-08-08] MEDS ORDERED: cefTRIAXone 1 gm 1 GM/100 ML BAG IV STA (23:07)
[2018-08-08] MEDS ORDERED: Azithromycin 500MG/NS 250ml 500 MG/250 ML BAG IV STA (23:07)
[2018-08-08 23:08] LABS: ARTERIAL BLOOD GAS HEMOGLOBIN 11.9 g/dL (11.7-17.4); ARTERIAL BLOOD GAS O2 CAPACITY 16.2 mL/dl (16-24); ARTERIAL BLOOD GAS O2 CONTENT 15.3 ML/dl (15-23); ARTERIAL BLOOD GAS O2 SAT 94.4 % (95-98); ARTERIAL BLOOD GAS PCO2 103 mm/Hg (35-45); ARTERIAL BLOOD GAS PH 7.28 (7.35-7.45); ARTERIAL BLOOD GAS TCO2 51.6 mmol.L (22-28)
[2018-08-08 23:20] LABS: ARTERIAL BLOOD GAS HCO3 48.4 mmol/L (21-28)
[2018-08-09 01:29] VITALS: BMI 36.8
[2018-08-09] MEDS: Albuterol-Ipratrop 3 mg / 0.5 (3 ml) UD IH PRN ×2 (07:17→17:27)
--- NOTE | 2018-08-09 10:10 | RAD ---
Date of service: 08/08/2018 HISTORY: sob COMPARISON: Chest radiograph dated 07/27/2018 FINDINGS: LUNGS: No active pulmonary disease. PLEURA: No significant pleural effusion identified, no pneumothorax apparent. CARDIOVASCULAR: Aortic atherosclerotic calcifications. Cardiomediastinal silhouette stably enlarged. OSSEOUS STRUCTURES: Unchanged. VISUALIZED UPPER ABDOMEN: Normal. OTHER FINDINGS: None. IMPRESSION: No active disease.
--- NOTE | 2018-08-09 10:38 | CARD ---
APPROVED REPORT Date of service: 08/08/2018 EKG Measurement Heart [id number] <Conclusion> Sinus tachycardia Otherwise normal ECG
--- NOTE | 2018-08-09 11:58 | CON ---
DATE: 08/09/2018 PULMONARY CONSULTATION NOTE REFERRING PHYSICIAN: Bernice Martinez MD REASON FOR CONSULTATION: Chronic obstructive lung disease, sleep apnea syndrome and shortness of breath. HISTORY OF PRESENT ILLNESS: This is a 73-year-old female with chronic obstructive lung disease, morbid obesity, known sleep apnea syndrome, suspected hypoventilation syndrome, pulmonary hypertension, who was recently discharged from [facility] 08/08/18. She was treated acutely for exacerbation of pulmonary hypertension, cough, shortness of breath, and respiratory failure requiring noninvasive ventilation then transferred to rehabilitation. This patient presented to emergency department via EMS complaining of progressive shortness of breath. This morning the patient is lying in bed, denies shortness of breath or cough. At this time, reports she does have shortness of breath with exertion. No headache, rhinitis, chest pain, abdominal pain, nausea, vomiting, diarrhea, leg pain or leg swelling reported. PAST MEDICAL HISTORY: As per history of present of illness. SOCIAL HISTORY: Former smoker. Denies any alcohol use. Denies illicit drug use. FAMILY HISTORY: No significant cardiopulmonary disease. ALLERGIES: NO KNOWN ALLERGIES. MEDICATION: DuoNeb 3 mL inhalation every 3 hours p.r.n. REVIEW OF SYSTEMS: No headache, rhinitis, cough, chest pain, abdominal pain, nausea, vomiting, dysuria, diarrhea, leg pain or leg swelling reported. The patient does report shortness of breath with exertion. PHYSICAL EXAMINATION: GENERAL: No acute distress. VITAL SIGNS: Blood pressure 142/87, pulse 68, temperature 98, and oxygen saturation 99%. HEENT: Moist mucous membranes. Crowded airway. NECK: Supple. No JVD. LUNGS: Decreased breath sounds, few scattered rhonchi. CARDIOVASCULAR: S1 and S2 audible. ABDOMEN: Soft and nontender. No distension. No organomegaly. EXTREMITIES: No bilateral lower extremity edema. NEUROLOGIC: Awake, alert, and verbal. Follows commands. LABORATORY DATA: Reviewed. WBC 14.9, hemoglobin 12.5, RBC 4.51, hematocrit 43.9, and platelets 263. PT 11.3, INR 0.99 and APTT 32.7. PCO2 of 103, PO2 of 68, HCO3 of 48.4 and ABG pH 7.28. Sodium 140, potassium 4.8, chloride 93, carbon dioxide 42, anion gap 10, BUN 26, creatinine 0.9, GFR greater than 60, random glucose 247, calcium 9.6, total bilirubin 0.6, AST 66, ALT 120, alkaline phosphatase 96, lactate dehydrogenase 689, total creatine kinase 50 and troponin 0.03, proBNP 135, total protein 7.3, albumin 3.9, globulin 3.4, and albumin-globulin ratio 1.2. Chest x-ray shows no active disease. Electrocardiogram showed sinus tachycardia. IMPRESSION AND PLAN: Exacerbation of chronic obstructive lung disease, pulmonary hypertension, sleep apnea syndrome, hypoventilation syndrome and morbid obesity. We will order bilevel positive airway pressure to be used at bedtime. We will start the patient on prednisone 10 mg daily since she went home on a tapering dose of prednisone. We will add gastric prophylaxis. We will add deep venous thrombosis prophylaxis and inhaled bronchodilators. We will order procalcitonin level for the morning. Orthostatic blood pressure will be ordered. We will start the patient on sildenafil 20 mg every 8 hours for pulmonary hypertension. We will hold off on starting the patient on antibiotics at this time. Monitor for hypotension with sildenafil. Sleep apnea precaution. Head of bed elevated at 45 degrees. This patient was seen and examined with Dr. Gonzáles. Discussed assessment and plan as described above. Thank you for this consult and we will follow with you. Hany Wilkes APN Oh Gonzáles MD [facility]
[2018-08-09] MEDS: Albuterol-Ipratrop 3 mg / 0.5 (3 ml) UD IH SCH ×2 (13:18→19:54)
[2018-08-09] MEDS: Sildenafil 20 MG TAB PO SCH ×2 (14:11→17:44)
[2018-08-09] MEDS ORDERED: Sodium Chloride 0.9% 250 ML IV STA ×3 (22:29→23:30)
[2018-08-09] MEDS: MethylPREDNISolone 40 mg Vial IV SCH (23:03)
--- NOTE | 2018-08-09 23:58 | HP ---
REASON FOR ADMISSION: A 73-year-old female came in with dyspnea. HISTORY OF PRESENT ILLNESS: A 73-year-old female recently discharged from TCU completing treatment for COPD, obstructive sleep apnea, pulmonary hypertension. She was being treated for steroids and discharged and given Medrol-Dosepak. Continue nebulizer treatment, however, at home she start feeling short of breath that got worse with minimal exertion, brought him back to the ER for evaluation and treatment. The patient denied any fever, any chest pain. She denied any nausea, vomiting. The patient was getting physical therapy and everyday in TCU plus continuation of her steroids. At this time, she came in with similar complaint more worsening short of breath, wheezing, coughing and she was admitted for further evaluation and treatment. PAST MEDICAL HISTORY: COPD, pulmonary hypertension, chronic cough, obesity, hypoventilation syndrome past medical history as above. ALLERGIES: NO KNOWN ALLERGIES. SOCIAL HISTORY: She quit smoking years ago. No drinking. No alcohol. FAMILY HISTORY: Noncontributory. PHYSICAL EXAMINATION: GENERAL: She is stable. No distress when I saw her. VITAL SIGNS: Temperature 98.8, heart rate 71, blood pressure 111/66, respirations 19, saturation 90 on 2 liters. HEAD AND NECK: Normal. No JVD. No thyromegaly. CHEST: Clear bilaterally. CARDIAC: First sounds and second sounds are normal. LUNGS: Diminished breath sounds bilaterally. EXTREMITIES: No edema. NEUROLOGIC: Normal. LABORATORY DATA: White count 14.9, hemoglobin 12.5, hematocrit 43.9, platelets 263. Chemistry noted for sodium 140, potassium 4.8, chloride 93, bicarb 42, BUN 26, creatinine 0.9, blood sugar 247, AST 66, ALT 120. otherwise alk phos is normal. The patient has troponin of 0.06. IMPRESSION: Acute chronic obstructive pulmonary disease exacerbation, obstructive sleep apnea, pulmonary hypertension. Resume all her meds, IV steroids. The patient is seen by Dr. Eliecer palomares physician and seems doing well. Right now, the patient was given IV Solu-Medrol 30 mg IV every 8 and nebulizers treatment and will followup clinically. Alvin Coffman MD
[2018-08-10] MEDS ORDERED: Sodium Chloride 0.9% 1,000 ML IV SCH (00:30)
[2018-08-10] MEDS: Albuterol-Ipratrop 3 mg / 0.5 (3 ml) UD IH SCH ×3 (01:50→20:00)
--- NOTE | 2018-08-10 04:08 | CP.PCM.PN ---
Subjective - Date & Time of Evaluation Date of Evaluation: 08/10/18 Time of Evaluation: 04:05 - Subjective Subjective: Patient was seen for hypotension. 73 year old woman was admitted with sob with minimal exertion. she was found to have Hypotension-78/50 after receiving Imdur 30 mg @ 2 PM and Revatio 20 mg (TID)at 4 PM . Asymptomatic. On BiPAP but does not want to be on it. Denies chest pain, sob, nausea, sweating ,palpitation. Medical record was reviewed. Admitted for SOB/Exacerbation of COPD from TCU. PMH: COPD RACHELLE CHF. Pulmonary HTN. HTN. Obesity. Hyperventilation syndrome. Chronic cough. Former smoker. Alcohol socially. CURRENT MEDS: Coreg on hold Drisdol Duoneb ASA Lipitor Lasix-hold Lovenox Pepcid Protonix Singular NACl@ 760 CC / hr Solumedrol Vit B12 Zestrio-hold HOME MEDS: Prednisone Revation Singular. Imdur. Lasix Pepcid Vit D2 Vasotec Vit B12 Coreg Pulmicort Lipitor Ecotrin Brovana Duoneb Ventolian Tylenol. OE: Alert , awake not in acute distress. Obese person. HEENT:NAD. NECK:JVD neg. HEART: S1 S2 normal . LUNGS:Equal air entry bilaterally. ABD:Soft EXT:Edema neg. NEURO:Speech normal , no gross deformity. PSYCH:Affect normal. A/P: Hypotension most likely 2* to combination of Revatio and Nitrite. COPD. Normal saline boluses 250 cc x 2. Followed by NS @ 70 cc/ hr which was reduced to 50 cc/hr. Objective - Vital Signs/Intake and Output Vital Signs (last 24 hours): Temp Pulse Resp BP Pulse Ox 98.5 F 64 20 78/50 L 99 08/10/18 00:01 08/10/18 02:00 08/10/18 00:01 08/10/18 00:01 08/10/18 00:01 Intake and Output: 08/09/18 08/10/18 18:59 06:59 Intake Total 900 Output Total 700 Balance 200 - Medications Medications: Current Medications Acetaminophen (Tylenol 325mg Tab) 650 mg PO Q4H PRN PRN Reason: Headache Albuterol/Ipratropium (Duoneb 3 Mg/0.5 Mg (3 Ml) Ud) 3 ml IH [id number] [facility] Last Admin: 08/10/18 01:50 Dose: Not Given Aspirin (Ecotrin) 81 mg PO DAILY [facility] Last Admin: 08/09/18 14:10 Dose: 81 mg Atorvastatin Calcium (Lipitor) 10 mg PO DIN [facility] Last Admin: 08/09/18 17:44 Dose: 10 mg Carvedilol (Coreg) 3.125 mg PO BID [facility] Last Admin: 08/09/18 17:44 Dose: 3.125 mg Cyanocobalamin (Vitamin B12 1000 Mcg Tab) 1,000 mcg PO DAILY [facility] Enoxaparin Sodium (Lovenox) 40 mg SC DAILY [facility]; Protocol Ergocalciferol (Drisdol 50,000 Intl Units Cap) 1 cap PO Q7D [facility] Famotidine (Pepcid) 40 mg PO HS [facility] Last Admin: 08/09/18 21:51 Dose: 40 mg Furosemide (Lasix) 20 mg PO DAILY [facility] Last Admin: 08/09/18 14:10 Dose: 20 mg Sodium Chloride (Sodium Chloride 0.9%) 1,000 mls @ 50 mls/hr IV .Q20H [facility] Lisinopril (Zestril) 2.5 mg PO DAILY [facility] Last Admin: 08/09/18 14:10 Dose: 2.5 mg Methylprednisolone (Solu-Medrol) 40 mg IV Q8 [facility] Last Admin: 08/09/18 23:03 Dose: 40 mg Montelukast Sodium (Singulair) 10 mg PO HS [facility] Last Admin: 08/09/18 21:51 Dose: 10 mg Pantoprazole Sodium (Protonix Ec Tab) 40 mg PO 0600 [facility] - Labs Labs: 08/08/18 20:32 08/08/18 20:32 PT 11.3 SECONDS (9.4-12.5) 08/08/18 20:32 INR 0.99 08/08/18 20:32 APTT 32.7 Seconds (25.1-36.5) 08/08/18 20:32
[2018-08-10] MEDS: MethylPREDNISolone 40 mg Vial IV SCH ×3 (05:19→22:40)
[2018-08-10] MEDS: Sodium Chloride 0.9% 1,000 ML IV SCH ×2 (05:21→17:36)
[2018-08-10] MEDS: Pantoprazole 40 mg EC Tab PO SCH (05:21)
--- NOTE | 2018-08-10 09:52 | US ---
Date of service: 08/10/2018 HISTORY: abnormal lfts and high wbcs COMPARISON: None. TECHNIQUE: Sonographic evaluation of the abdomen. FINDINGS: LIVER: Measures 20.0 cm. Hepatopedal blood flow. Fatty infiltration manifest ultrasonographically as increased echogenicity of the liver parenchyma. No mass. No intrahepatic bile duct dilatation. GALLBLADDER: Cholelithiasis. Negative study for gallbladder wall thickening, pericholecystic fluid, sonographic Flores's sign. COMMON BILE DUCT: Measures 13.9 mm. Dilated common bile duct. No intrahepatic bile duct dilatation identified. PANCREAS: Unremarkable as visualized. No mass. No ductal dilatation. RIGHT KIDNEY: Measures 4.3 x 9.7cm. Normal echogenicity. No calculus, mass, or hydronephrosis. LEFT KIDNEY: Measures 5.9 x 10.8cm. Normal echogenicity. No calculus, mass, or hydronephrosis. SPLEEN: Normal in size and contour. No mass. AORTA: No aneurysmal dilatation. IVC: Unremarkable. OTHER FINDINGS: None. IMPRESSION: Cholelithiasis. No sonographic evidence of acute cholecystitis. Hepatomegaly/hepatic steatosis.
[2018-08-10] MEDS: Enoxaparin 40 mg Syringe SC SCH (10:08)
[2018-08-10 14:07] LABS: HEMOGLOBIN 10.6 g/dL (12.0-16.0); MEAN CELL VOLUME 98.2 fl (80.0-105.0); MEAN CORPUSCULAR HEMOGLOBIN 26.8 pg (25.0-35.0); MEAN CORPUSCULAR HGB CONC 27.3 g/dl (31.0-37.0); MEAN PLATELET VOLUME 10.1 fl (7.0-11.0); RBC 3.95 10^6/uL (3.5-6.1); RED CELL DISTRIBUTION WIDTH 16.3 % (11.5-14.5); WHITE BLOOD COUNT 12.7 10^3/uL (4.5-11.0)
--- NOTE | 2018-08-10 16:40 | PN ---
DATE: 08/10/2018 REFERRING PHYSICIAN: Bernice Martinez MD SUBJECTIVE: The patient is sitting up at bedside. No acute distress. No overnight events reported. The patient reports improvement in shortness of breath. No headache, rhinitis, cough, chest pain, abdominal pain, nausea, vomiting, diarrhea, leg pain, or leg swelling reported. OBJECTIVE: VITAL SIGNS: Blood pressure 100/53, pulse 75, temperature 98.3, and oxygen saturation 100% via nasal cannula. GENERAL: No acute distress. HEENT: Moist mucous membrane. Crowded airway. NECK: Supple. No JVD. LUNGS: Few scattered rhonchi bilaterally. CARDIOVASCULAR: S1 and S2 audible. ABDOMEN: Soft and nontender. No distention. No organomegaly. EXTREMITIES: +1 bilateral lower extremity edema. NEUROLOGIC: Awake, alert, and verbal. Follows commands. MEDICATIONS: Reviewed. Tylenol 650 mg every 4 hours p.r.n., DuoNeb 3 mL inhalation every 6 hours, aspirin 81 mg p.o. daily, Lipitor 10 mg at dinner, Coreg 3.125 mg twice a day, vitamin B12 at 1000 mcg daily, Lovenox 40 mg subcu daily, ergocalciferol 50,000 units every 7 days, Pepcid 40 mg at bedtime, Lasix 20 mg daily, lisinopril 2.5 mg daily, Solu-Medrol 40 mg every 8 hours, Singulair 10 mg at bedtime, Protonix 40 mg daily, sodium chloride mL per hour. LABORATORY DATA: Reviewed. WBC 12.7, RBC 3.95, hemoglobin 10.6, hematocrit 38.8, and platelets 226. Procalcitonin less than 0.05. Blood cultures preliminary no growth after 24 hours. Abdominal ultrasound shows cholelithiasis, no sonographic evidence of acute cholecystitis, hepatomegaly/hepatic steatosis. IMPRESSION AND PLAN: Exacerbation of chronic obstructive lung disease, pulmonary hypertension, sleep apnea syndrome, hypoventilation syndrome, morbid obesity. Continue to encourage bilevel positive airway pressure use at bedtime. Sleep apnea precaution and head of bed elevated at 45 degrees. Continue steroids, gastric prophylaxis, deep venous thrombosis prophylaxis. Continue inhaled bronchodilators. We will continue to monitor patient's blood pressure and will start sildenafil once the patient's blood pressure improves. Sleep apnea precaution and head of bed elevated at 45 degrees. This patient was seen and examined with Dr. Gonzáles. Discussed assessment and plan as described above. Thank you for this consult. We will follow with you. Hany Wilkes APN Oh Gonzáles MD [facility]
--- NOTE | 2018-08-10 16:46 | CP.PCM.PN ---
Subjective - Date & Time of Evaluation Date of Evaluation: 08/10/18 Time of Evaluation: 09:25 - Subjective Subjective: c/o back pain, otherwise NAD, denies SOB, no chest pain Objective - Vital Signs/Intake and Output Vital Signs (last 24 hours): Temp Pulse Resp BP Pulse Ox 98.3 F 74 18 100/53 L 100 08/10/18 12:00 08/10/18 14:00 08/10/18 12:00 08/10/18 12:00 08/10/18 07:40 Intake and Output: 08/10/18 08/10/18 06:59 18:59 Intake Total 300 410 Output Total 0 Balance 300 410 - Medications Medications: Current Medications Acetaminophen (Tylenol 325mg Tab) 650 mg PO Q4H PRN PRN Reason: Headache Albuterol/Ipratropium (Duoneb 3 Mg/0.5 Mg (3 Ml) Ud) 3 ml IH [id number] [facility] Last Admin: 08/10/18 07:10 Dose: 3 ml Aspirin (Ecotrin) 81 mg PO DAILY [facility] Last Admin: 08/10/18 10:09 Dose: 81 mg Atorvastatin Calcium (Lipitor) 10 mg PO DIN [facility] Last Admin: 08/09/18 17:44 Dose: 10 mg Carvedilol (Coreg) 3.125 mg PO BID [facility] Last Admin: 08/09/18 17:44 Dose: 3.125 mg Cyanocobalamin (Vitamin B12 1000 Mcg Tab) 1,000 mcg PO DAILY [facility] Last Admin: 08/10/18 10:08 Dose: 1,000 mcg Enoxaparin Sodium (Lovenox) 40 mg SC DAILY [facility]; Protocol Last Admin: 08/10/18 10:08 Dose: 40 mg Ergocalciferol (Drisdol 50,000 Intl Units Cap) 1 cap PO Q7D [facility] Famotidine (Pepcid) 40 mg PO HS [facility] Last Admin: 08/09/18 21:51 Dose: 40 mg Furosemide (Lasix) 20 mg PO DAILY [facility] Last Admin: 08/09/18 14:10 Dose: 20 mg Sodium Chloride (Sodium Chloride 0.9%) 1,000 mls @ 50 mls/hr IV .Q20H [facility] Last Admin: 08/10/18 05:21 Dose: 50 mls/hr Lisinopril (Zestril) 2.5 mg PO DAILY [facility] Last Admin: 08/09/18 14:10 Dose: 2.5 mg Methylprednisolone (Solu-Medrol) 40 mg IV Q8 [facility] Last Admin: 08/10/18 13:52 Dose: 40 mg Montelukast Sodium (Singulair) 10 mg PO HS [facility] Last Admin: 08/09/18 21:51 Dose: 10 mg Pantoprazole Sodium (Protonix Ec Tab) 40 mg PO 0600 [facility] Last Admin: 08/10/18 05:21 Dose: 40 mg - Labs Labs: 08/10/18 13:30 08/08/18 20:32 PT 11.3 SECONDS (9.4-12.5) 08/08/18 20:32 INR 0.99 08/08/18 20:32 APTT 32.7 Seconds (25.1-36.5) 08/08/18 20:32 - Respiratory Exam Respiratory Exam: Clear to Ausculation Bilateral, NORMAL BREATHING PATTERN - Cardiovascular Exam Cardiovascular Exam: REGULAR RHYTHM - GI/Abdominal Exam GI & Abdominal Exam: Soft, Normal Bowel Sounds - Neurological Exam Neurological Exam: Alert, Awake Assessment and Plan (1) COPD exacerbation Status: Acute (2) Back pain Status: Acute - Assessment and Plan (Free Text) Plan: continue present rx, PT and SW for DC planning
[2018-08-11] MEDS: Albuterol-Ipratrop 3 mg / 0.5 (3 ml) UD IH SCH ×4 (02:50→19:49)
[2018-08-11] MEDS: MethylPREDNISolone 40 mg Vial IV SCH ×3 (05:51→21:33)
[2018-08-11] MEDS: Pantoprazole 40 mg EC Tab PO SCH (05:51)
[2018-08-11 05:59] VITALS: O2SAT 98
[2018-08-11 07:41] LABS: ALB/GLOB RATIO 1.2 (1.1-1.8); ALBUMIN 3.1 g/dL (3.0-4.8); ALT/SGPT 106 U/L (7-56); AST/SGOT 59 U/L (14-36); BLOOD UREA NITROGEN 21 mg/dL (7-21); CALCIUM 8.7 mg/dL (8.4-10.5); GFR NON-AFRICAN AMERICAN > 60
[2018-08-11] MEDS: Enoxaparin 40 mg Syringe SC SCH (09:32)
[2018-08-11 11:24] LABS: HEMOGLOBIN 10.6 g/dL (12.0-16.0); MEAN CORPUSCULAR HEMOGLOBIN 27.7 pg (25.0-35.0); MEAN CORPUSCULAR HGB CONC 27.7 g/dl (31.0-37.0); MEAN PLATELET VOLUME 10.6 fl (7.0-11.0); RBC 3.83 10^6/uL (3.5-6.1); RED CELL DISTRIBUTION WIDTH 16.4 % (11.5-14.5); WHITE BLOOD COUNT 12.3 10^3/uL (4.5-11.0)
--- NOTE | 2018-08-11 11:50 | CP.PCM.PN ---
Subjective - Date & Time of Evaluation Date of Evaluation: 08/11/18 Time of Evaluation: 09:10 - Subjective Subjective: c/o mild ARIAS, denies chest pain, no SOB, mild back discomfort Objective - Vital Signs/Intake and Output Vital Signs (last 24 hours): Temp Pulse Resp BP Pulse Ox 97.5 F L 73 20 117/68 98 08/11/18 05:58 08/11/18 10:21 08/11/18 05:58 08/11/18 05:58 08/11/18 05:58 Intake and Output: 08/11/18 08/11/18 06:59 18:59 Intake Total 1020 Output Total 700 Balance 320 - Medications Medications: Current Medications Acetaminophen (Tylenol 325mg Tab) 650 mg PO Q4H PRN PRN Reason: Headache Albuterol/Ipratropium (Duoneb 3 Mg/0.5 Mg (3 Ml) Ud) 3 ml IH [id number] [facility] Last Admin: 08/11/18 08:01 Dose: 3 ml Aspirin (Ecotrin) 81 mg PO DAILY [facility] Last Admin: 08/11/18 09:32 Dose: 81 mg Atorvastatin Calcium (Lipitor) 10 mg PO DIN [facility] Last Admin: 08/10/18 17:33 Dose: 10 mg Carvedilol (Coreg) 3.125 mg PO BID [facility] Last Admin: 08/09/18 17:44 Dose: 3.125 mg Cyanocobalamin (Vitamin B12 1000 Mcg Tab) 1,000 mcg PO DAILY [facility] Last Admin: 08/11/18 09:33 Dose: 1,000 mcg Enoxaparin Sodium (Lovenox) 40 mg SC DAILY [facility]; Protocol Last Admin: 08/11/18 09:32 Dose: 40 mg Ergocalciferol (Drisdol 50,000 Intl Units Cap) 1 cap PO Q7D [facility] Famotidine (Pepcid) 40 mg PO HS [facility] Last Admin: 08/10/18 22:40 Dose: 40 mg Sodium Chloride (Sodium Chloride 0.9%) 1,000 mls @ 50 mls/hr IV .Q20H [facility] Last Admin: 08/10/18 17:36 Dose: 50 mls/hr Lisinopril (Zestril) 2.5 mg PO DAILY [facility] Last Admin: 08/09/18 14:10 Dose: 2.5 mg Methylprednisolone (Solu-Medrol) 40 mg IV Q8 [facility] Last Admin: 08/11/18 05:51 Dose: 40 mg Montelukast Sodium (Singulair) 10 mg PO HS [facility] Last Admin: 08/10/18 22:40 Dose: 10 mg Pantoprazole Sodium (Protonix Ec Tab) 40 mg PO 0600 [facility] Last Admin: 08/11/18 05:51 Dose: 40 mg Sildenafil Citrate (Revatio) 20 mg PO BID [facility] - Labs Labs: 08/11/18 11:00 08/11/18 06:45 PT 11.3 SECONDS (9.4-12.5) 08/08/18 20:32 INR 0.99 08/08/18 20:32 APTT 32.7 Seconds (25.1-36.5) 08/08/18 20:32 - Respiratory Exam Respiratory Exam: Prolonged Expiratory Phase - Cardiovascular Exam Cardiovascular Exam: REGULAR RHYTHM - GI/Abdominal Exam GI & Abdominal Exam: Soft, Normal Bowel Sounds - Extremities Exam Extremities Exam: Normal Inspection - Neurological Exam Neurological Exam: Alert, Awake - Skin Skin Exam: Dry, Warm Assessment and Plan (1) COPD exacerbation Status: Acute (2) Back pain Status: Acute - Assessment and Plan (Free Text) Plan: continue present tx, pulmonary follow-up Dr. Gonzáles
--- NOTE | 2018-08-11 12:30 | CP.PCM.APN ---
Subjective - Date & Time of Evaluation Date of Evaluation: 08/11/18 Time of Evaluation: 10:30 - Subjective Subjective: pt seen and examined at bedside with physical therapist s/p ambulating in hallway. pt is SOb with 02 sat via finger saturation at 81%, increased o2 level from 2l to 3l Review of Systems - Respiratory Respiratory: Dyspnea Objective - Vital Signs/Intake and Output Vital Signs (last 24 hours): Temp Pulse Resp BP Pulse Ox 97.5 F L 73 20 117/68 98 08/11/18 05:58 08/11/18 10:21 08/11/18 05:58 08/11/18 05:58 08/11/18 05:58 Intake and Output: 08/11/18 08/11/18 06:59 18:59 Intake Total 1020 Output Total 700 Balance 320 - Medications Medications: Current Medications Acetaminophen (Tylenol 325mg Tab) 650 mg PO Q4H PRN PRN Reason: Headache Albuterol/Ipratropium (Duoneb 3 Mg/0.5 Mg (3 Ml) Ud) 3 ml IH [id number] [facility] Last Admin: 08/11/18 08:01 Dose: 3 ml Aspirin (Ecotrin) 81 mg PO DAILY [facility] Last Admin: 08/11/18 09:32 Dose: 81 mg Atorvastatin Calcium (Lipitor) 10 mg PO DIN [facility] Last Admin: 08/10/18 17:33 Dose: 10 mg Carvedilol (Coreg) 3.125 mg PO BID [facility] Last Admin: 08/09/18 17:44 Dose: 3.125 mg Cyanocobalamin (Vitamin B12 1000 Mcg Tab) 1,000 mcg PO DAILY [facility] Last Admin: 08/11/18 09:33 Dose: 1,000 mcg Enoxaparin Sodium (Lovenox) 40 mg SC DAILY [facility]; Protocol Last Admin: 08/11/18 09:32 Dose: 40 mg Ergocalciferol (Drisdol 50,000 Intl Units Cap) 1 cap PO Q7D [facility] Famotidine (Pepcid) 40 mg PO HS [facility] Last Admin: 08/10/18 22:40 Dose: 40 mg Sodium Chloride (Sodium Chloride 0.9%) 1,000 mls @ 50 mls/hr IV .Q20H [facility] Last Admin: 08/10/18 17:36 Dose: 50 mls/hr Lisinopril (Zestril) 2.5 mg PO DAILY [facility] Last Admin: 08/09/18 14:10 Dose: 2.5 mg Methylprednisolone (Solu-Medrol) 40 mg IV Q8 [facility] Last Admin: 08/11/18 05:51 Dose: 40 mg Montelukast Sodium (Singulair) 10 mg PO HS [facility] Last Admin: 08/10/18 22:40 Dose: 10 mg Pantoprazole Sodium (Protonix Ec Tab) 40 mg PO 0600 [facility] Last Admin: 08/11/18 05:51 Dose: 40 mg Sildenafil Citrate (Revatio) 20 mg PO BID [facility] - Labs Labs: 08/11/18 11:00 08/11/18 06:45 PT 11.3 SECONDS (9.4-12.5) 08/08/18 20:32 INR 0.99 08/08/18 20:32 APTT 32.7 Seconds (25.1-36.5) 08/08/18 20:32 - Constitutional Appears: Non-toxic - Eye Exam Eye Exam: Normal appearance Pupil Exam: NORMAL ACCOMODATION - ENT Exam ENT Exam: Mucous Membranes Moist - Neck Exam Neck Exam: Normal Inspection - Respiratory Exam Respiratory Exam: Decreased Breath Sounds, Prolonged Expiratory Phase - Cardiovascular Exam Cardiovascular Exam: +S1, +S2 - GI/Abdominal Exam GI & Abdominal Exam: Normal Bowel Sounds - Neurological Exam Neurological Exam: Alert, Oriented x3 - Skin Skin Exam: Dry, Intact Assessment and Plan - Assessment and Plan (Free Text) Plan: 73 yr old AA female with pmh sig for sleep apnea, copd, morbid obestiy, hyperventilation syndrome and chf who was recently dc home now readmitted with SOB and copd exacerbation with noted Po2 of 68, Co2 103 on ABG. Pt admitted with pulmonary evaluation and treatment in progress with BIPAP and Iv steroid regimen in place. Per Physical therapy eval and treatment , TCU i s recommended upon DC. Per SS notes pt has o2 at home TCU Eval entered, will discuss with PMD. BPCI/TIC - BPCIA/TIC Educated pt/family on BPCIA/CIR/Med to Bed Programs: Yes Flyers given, including [facility] Beneficiary letter: Yes Pt/family verbalized understanding & agreed to program: Yes
--- NOTE | 2018-08-11 13:15 | PN ---
DATE: 08/11/2018 PULMONARY PROGRESS NOTE REFERRING PHYSICIAN: Bernice Martinez MD SUBJECTIVE: The patient is sitting up at bedside. No acute distress. No overnight events reported. The patient does report having shortness of breath with exertion. Denies any cough; unsure if she wore a BiPAP machine last night. No headache, rhinitis, chest pain, abdominal pain, nausea, vomiting, diarrhea or leg pain reported. PHYSICAL EXAMINATION VITAL SIGNS: Blood pressure 117/68, pulse 64, temperature 97.5, oxygen saturation 98% via nasal cannula. GENERAL: No acute distress. HEENT: Moist mucous membranes. Crowded airway. NECK: Supple. No JVD. LUNGS: Few scattered rhonchi bilaterally. CARDIOVASCULAR: S1 and S2 audible. ABDOMEN: Soft and nontender. No distention. No organomegaly. EXTREMITIES: +1 bilateral lower extremity edema. NEUROLOGIC: Awake, alert, and verbal. Follows commands. MEDICATIONS: Reviewed. Tylenol 650 mg every 4 hours p.r.n., DuoNeb 3 mL inhalation every 6 hours, aspirin 81 mg daily, Lipitor 10 mg at dinner, Coreg 3.125 mg twice a day, vitamin B12 at 1000 mcg daily, Lovenox 40 mg subcu daily, ergocalciferol 50,000 units every 7 days, Pepcid 40 mg h.s., Lasix 20 mg daily, lisinopril 2.5 mg daily, Solu-Medrol 40 mg every 8 hours, Singulair 10 mg at bedtime, Protonix 40 mg daily, sodium chloride 1000 mL 50 mL per hour. LABORATORY DATA: Reviewed. Sodium 140, potassium 5, chloride 90, carbon dioxide 23, anion gap 4, BUN 21, creatinine 0.7, GFR greater than 60, random glucose 115, calcium 8.7, total bilirubin 0.3, AST 59, ALT 106, alkaline phosphatase 67, total protein 5.8, albumin 3.1, globulin 2.7, albumin-globulin ratio 1.2. Procalcitonin less than 0.05. Blood cultures preliminary shows no growth after 48 hours. IMPRESSION AND PLAN: Exacerbation of chronic obstructive lung disease, pulmonary hypertension, sleep apnea syndrome, hypoventilation syndrome and morbid obesity. Case discussed with in-house nurse practitionerJenny. It appears the patient's oxygen at home may not be working properly. Will consult health and social care teacher evaluation for home oxygen and continuous positive airway pressure machine to ensure the functioning. Continue bilevel positive airway pressure use at bedtime. Sleep apnea precautions. Head of bed elevated to 45 degrees. Continue steroids and gastrointestinal prophylaxis. Continue deep venous thrombosis prophylaxis. Continue with her bronchodilators. Will discontinue Lasix and start the patient on sildenafil 20 mg twice a day. We will see how she tolerates and will increase as the patient tolerates sildenafil. Will continue Coreg and lisinopril at this time. Monitor for hypotension. d/c ivf. started iv Lasix This patient was seen and examined with Dr. Gonzáles. Discussed assessment and plan as described above. Thank you for this consult. We will follow with you. Hany Wilkes APN Oh Gonzáles MD [facility]
[2018-08-11] MEDS: Sildenafil 20 MG TAB PO SCH (18:03)
[2018-08-11] MEDS: Budesonide 0.5 mg/2 ml Inhal Susp UD IH SCH (19:49)
[2018-08-12] MEDS: Albuterol-Ipratrop 3 mg / 0.5 (3 ml) UD IH SCH ×3 (01:36→13:44)
[2018-08-12] MEDS: MethylPREDNISolone 40 mg Vial IV SCH ×2 (05:11→13:15)
[2018-08-12] MEDS: Pantoprazole 40 mg EC Tab PO SCH (05:11)
[2018-08-12 06:54] LABS: B-TYPE NATRIURETIC PEPTIDE 300 pg/mL (0-450)
[2018-08-12 07:15] LABS: ALB/GLOB RATIO 1.2 (1.1-1.8); ALBUMIN 3.2 g/dL (3.0-4.8); ALT/SGPT 95 U/L (7-56); AST/SGOT 42 U/L (14-36); BLOOD UREA NITROGEN 22 mg/dL (7-21); CALCIUM 8.7 mg/dL (8.4-10.5); GFR NON-AFRICAN AMERICAN > 60
[2018-08-12] MEDS: Budesonide 0.5 mg/2 ml Inhal Susp UD IH SCH (08:20)
[2018-08-12] MEDS ORDERED: Albuterol-Ipratrop 3 mg / 0.5 (3 ml) UD IH PRN (10:16)
[2018-08-12] MEDS: Enoxaparin 40 mg Syringe SC SCH (10:37)
[2018-08-12] MEDS: Sildenafil 20 MG TAB PO SCH (10:37)
--- NOTE | 2018-08-12 11:22 | PN ---
DATE: 08/12/2018 PULMONARY PROGRESS NOTE REFERRING PHYSICIAN: Bernice Martinez MD SUBJECTIVE: The patient is lying in bed. Awake, alert and verbal. No acute distress. Reports some shortness of breath with exertion. Denies cough. No headache, rhinitis, chest pain, abdominal pain, nausea, vomiting, diarrhea or leg pain reported. OBJECTIVE: VITAL SIGNS: Blood pressure 110/69, pulse 68, temperature 98.4. GENERAL: No acute distress. HEENT: Moist mucous membranes. Crowded airway. NECK: Supple. No JVD. LUNGS: Scattered rhonchi bilaterally. CARDIOVASCULAR: S1 and S2, audible. ABDOMEN: Soft and nontender. No distention. No organomegaly. EXTREMITIES: +1-2 bilateral lower extremity edema. NEUROLOGIC: Awake, alert, and verbal. Follows commands. MEDICATIONS: Reviewed. Tylenol 650 mg every 4 hours p.r.n., DuoNeb 3 mL inhalation every 6 hours, DuoNeb 3 mL inhalation every 12 hours p.r.n., aspirin 81 mg daily, Lipitor 10 mg at dinner, Pulmicort 0.5 mg every 12 hours, Coreg 3.125 mg twice a day, vitamin B12 at 1000 mcg daily, Lovenox 40 mg subcutaneous daily, ergocalciferol 50,000 units every 7 days, Pepcid 40 mg at bedtime., Lasix 40 mg IV push daily, lisinopril 2.5 mg daily, Solu-Medrol 40 mg every 8 hours, Singulair 10 mg at bedtime, Protonix 40 mg daily and sildenafil 20 mg twice a day. LABORATORY DATA: Reviewed. Sodium 140, potassium 4.6, chloride 93, carbon dioxide 44, anion gap 7, BUN 22, creatinine 0.8, GFR is greater than 60, random glucose 151, calcium 8.7, total bilirubin 0.4, AST 42, ALT 95, alkaline phosphatase 69, proBNP 300, total protein 5.9, albumin 3.2, globulin 2.6 and albumin-globulin ratio 1.2. Blood culture preliminary shows no growth after 3 days. IMPRESSION AND PLAN: Exacerbation of chronic obstructive lung disease, pulmonary hypertension, sleep apnea syndrome, hypoventilation syndrome and morbid obesity. Continue bilevel positive airway pressure use at bedtime. Sleep apnea precautions. Head of bed elevated to 45 degrees. Continue steroids and gastroesophageal reflux disease prophylaxis, deep venous thrombosis prophylaxis. Continue inhaled bronchodilators. We will continue Lasix at this time. Monitor the patient for hypotension. Continue cardiology followup. The patient would benefit from physical therapy. This patient was seen and examined with Dr. Gonzáles. Discussed assessment and plan as described above. Thank you for this consult. We will follow with you. Hany Wilkes APN Oh Gonzáles MD [facility]
[2018-08-12 12:26] VITALS: BP 129/81; PULSE 75; RESP 14; TEMP 98.8
--- NOTE | 2018-08-13 05:29 | DS ---
This is Dr. Prajapati covering for Dr. Bernice Martinez. HOSPITAL COURSE: The patient is a 73-year-old female transferred from the Transitional Care Unit to the medical-surgical floor on 08/08/2018 with an exacerbation of COPD. The patient was seen in consultation by Dr. Gonzáles. She was started on intravenous steroids, nebulizer treatment and intravenous antibiotics, and she had an uneventful hospital course and is now transferred back to the Transitional Care Unit for further evaluation and management. PHYSICAL EXAMINATION: VITAL SIGNS: Within normal limits. LUNGS: Clear. HEART: Regular rate and rhythm. ABDOMEN: Soft, nontender. Bowel sounds are normoactive. EXTREMITIES: Without cyanosis, clubbing or edema. NEUROLOGIC: The patient is awake and oriented x3, without focal sensory or motor deficits. SKIN: Warm and dry. IMPRESSION: 1. Exacerbation of chronic obstructive pulmonary disease. 2. Obstructive sleep apnea. 3. Pulmonary hypertension. PLAN: The patient was transferred to the Transitional Care Unit on the following medications; Brovana 15 mcg inhaled every 12 hours, DuoNebs 3 mL inhaled every 6 hours, Lasix 40 mg daily, Lipitor 10 mg daily, Lovenox 40 mg subcu daily, Protonix 40 mg daily, sildenafil 20 mg twice daily, Singulair 10 mg daily, Solu-Medrol 40 mg IV every 8 hours. The patient is maintained on a heart-healthy diet. Activity is as per Transitional Care Unit, where she will be followed there. KAREN Diaz MD
[2018-08-13] MEDS ORDERED: Ergocalciferol 50,000 Intl Units Cap PO SCH (13:30)
== END 2018-08-12 15:25 | DRG 190 ==
LOC: ED 20:21 → ERH 23:18 → 2RNO 08-09 00:46
PROVIDERS: ADMIT Internal Medicine; ATTEND Internal Medicine
PROC: 5A09357 Assistance with Respiratory Ventilation, Less than 24 Consecutive Hours, Continuous Positive Airway Pressure (ICD-10-PCS; principal; 2018-08-08)
DX: J44.1 Chronic obstructive pulmonary disease with (acute) exacerbation (principal); J96.90 Respiratory failure, unspecified, unspecified whether with hypoxia or hypercapnia; E66.2 Morbid (severe) obesity with alveolar hypoventilation; I11.0 Hypertensive heart disease with heart failure; I50.9 Heart failure, unspecified; G47.33 Obstructive sleep apnea (adult) (pediatric); Z68.36 Body mass index [BMI] 36.0-36.9, adult; H91.90 Unspecified hearing loss, unspecified ear; I27.20 Pulmonary hypertension, unspecified; I95.2 Hypotension due to drugs; T46.3X5A Adverse effect of coronary vasodilators, initial encounter; T46.7X5A Adverse effect of peripheral vasodilators, initial encounter; M54.9 Dorsalgia, unspecified; Z87.891 Personal history of nicotine dependence; Z79.82 Long term (current) use of aspirin

== ENCOUNTER 2018-08-12 15:28 | Inpatient (IN) | payer MEDICARE ==
[2018-08-12 16:09] VITALS: BMI 38.2
[2018-08-12] MEDS ORDERED: Albuterol-Ipratrop 3 mg / 0.5 (3 ml) UD IH PRN (16:12)
[2018-08-12] MEDS ORDERED: Influenza Vaccine 60 mcg/0.5 mL SYR (4YR UP) IM ONE (17:47)
[2018-08-12] MEDS ORDERED: Pneumococcal 23-Valent Vaccine IM ONE (17:47)
[2018-08-12] MEDS: Sildenafil 20 MG TAB PO SCH (17:49)
[2018-08-12] MEDS: Arformoterol 15 mcg/2 ml Inh Sol IH SCH (19:46)
[2018-08-12] MEDS: Albuterol-Ipratrop 3 mg / 0.5 (3 ml) UD IH SCH (19:46)
[2018-08-12] MEDS: Budesonide 0.5 mg/2 ml Inhal Susp UD IH SCH (19:48)
[2018-08-12] MEDS: MethylPREDNISolone 40 mg Vial IVP SCH (21:24)
[2018-08-13] MEDS: Enoxaparin 40 mg Syringe SC SCH ×2 (06:09→10:24)
[2018-08-13] MEDS: MethylPREDNISolone 40 mg Vial IVP SCH ×3 (06:10→21:02)
[2018-08-13] MEDS: Pantoprazole 40 mg EC Tab PO SCH (06:10)
[2018-08-13] MEDS: Arformoterol 15 mcg/2 ml Inh Sol IH SCH ×2 (07:43→19:31)
[2018-08-13] MEDS: Budesonide 0.5 mg/2 ml Inhal Susp UD IH SCH ×2 (07:43→19:31)
[2018-08-13] MEDS: Albuterol-Ipratrop 3 mg / 0.5 (3 ml) UD IH SCH ×3 (07:44→19:31)
[2018-08-13] MEDS ORDERED: Ergocalciferol 50,000 Intl Units Cap PO SCH (10:00)
[2018-08-13] MEDS: Sildenafil 20 MG TAB PO SCH ×2 (10:57→18:05)
--- NOTE | 2018-08-13 11:39 | HP ---
DATE OF EXAM: 08/13/[address] Prajapati covering for Dr. Bernice Martinez. HISTORY OF PRESENT ILLNESS: The patient is a 73-year-old female admitted to the medical-surgical floor for exacerbation of COPD on 08/09/2017. The patient was started on intravenous steroids, nebulizer treatment, and intravenous antibiotics. She was seen in consultation by Pulmonary Dr. Gonzáles. She had an uneventful hospital course and is now transferred back to the Transitional Care Unit for further evaluation and management. PAST MEDICAL HISTORY: Includes COPD, obstructive sleep apnea, and pulmonary hypertension. ALLERGIES: ISOSORBIDE AND NITROGLYCERIN. CURRENT MEDICATIONS: Include Brovana 15 mcg inhaled every 12 hours, DuoNebs every 6 hours, Lasix 40 mg daily, Lipitor 10 mg daily, Lovenox 40 mg subcu daily, Protonix 40 mg daily, sildenafil 20 mg twice daily, Singulair 10 mg daily, Solu-Medrol 40 mg IV every 8 hours. FAMILY HISTORY: Noncontributory. SOCIAL HISTORY: The patient denies any alcohol or tobacco use. REVIEW OF SYSTEMS: The patient denies any chest pain, shortness of breath. There is some mild swelling of the legs. No nausea, no vomiting, no diarrhea. No melena, no bright red blood per rectum. No jaundice. PHYSICAL EXAMINATION: GENERAL: The patient is a well-developed obese female in no acute distress. VITAL SIGNS: Temperature 98.1, pulse 74, blood pressure 137/73, respiratory rate 16. HEENT: Head is normocephalic, atraumatic. Pupils equal, round, reactive to light. Extraocular movements are intact. LUNGS: Clear with somewhat decreased breath sounds at the bases. HEART: Regular rate and rhythm. ABDOMEN: Soft, nontender. Bowel sounds are normoactive. EXTREMITIES: Without cyanosis, clubbing. There is 1-2+ bipedal edema. NEUROLOGIC: The patient is awake and oriented x3 without focal sensory or motor deficits. SKIN: Warm and dry. IMPRESSION: 1. Chronic obstructive pulmonary disease. 2. Obstructive sleep apnea. 3. Pulmonary hypertension. PLAN: Continue rehab in the TCU. Dr. Martinez to resume care of the patient on Wednesday. KAREN Diaz MD [facility] # [id number]
--- NOTE | 2018-08-13 20:39 | CON ---
DATE OF CONSULTATION: 08/13/2018 REFERRING PHYSICIAN: Bernice Martinez MD REASON FOR CONSULTATION: Pulmonary retention, hypoventilation syndrome, sleep apnea syndrome. HISTORY OF PRESENT ILLNESS: This is a 73-year-old female well known to me from previous admission and from the office, known history of chronic obstructive lung disease, morbid obesity, sleep apnea syndrome, suspected hypoventilation syndrome, severe pulmonary hypertension, suspected cardiac diastolic dysfunction, who was admitted at acute side of the hospital with decompensation of cardiopulmonary system with respiratory failure, CO2 retention and hypoxemia. She was treated with noninvasive ventilation, started on pulmonary hypertension, IV steroids, inhaled bronchodilator, also treated with diuretics. Presently admitted to [facility] for continued care. She is lying in the bed, feels better, still gets short of breath with exertion. Tolerating BiPAP well. No hemoptysis, hematemesis or hematuria. Still having leg swelling. PAST MEDICAL HISTORY: As per history of present illness. FAMILY HISTORY: No significant cardiopulmonary disease reported. SOCIAL HISTORY: Former smoker. Denies any alcohol use. MEDICATIONS: She is on Brovana inhaled twice a day, vitamin D 50,000 units weekly, DuoNeb every 2 hours p.r.n. and every 6 hours [id number], Ecotrin 81 mg daily, Lasix 40 mg daily, Lipitor 10 mg daily, Lovenox 40 mg daily, Pepcid 40 mg h.s., Protonix 40 mg daily, Pulmicort inhaled twice a day, sildenafil 20 mg twice a day, Singulair 10 mg daily, Solu-Medrol 40 mg every 8 hours, Tylenol p.r.n., vitamin B 2000 mcg daily. ALLERGIES: NONE KNOWN. REVIEW OF SYSTEMS: No headache, no rhinitis. Does have a cough, shortness of breath. No chest pain, no abdominal pain, no dysuria. Does have leg swelling. PHYSICAL EXAMINATION: GENERAL: Lying in the bed. VITAL SIGNS: Temperature is 98, heart rate 72, respiratory rate is 18, blood pressure 111/65, pulse ox 98% on 2 liter nasal cannula. HEENT: Moist mucous membranes. Crowded airway. NECK: Supple. No JVD. LUNGS: Prolonged expiratory phase with scattered rhonchi. HEART: S1 and S2. ABDOMEN: Soft, nontender, no organomegaly. EXTREMITIES: Does have edema. NEUROLOGIC: Awake, alert, follows simple commands. LABORATORY DATA: Hemoglobin on admission was 10.6. Blood gases on admission showed pH 7.28, pCO2 of 103, O2 of 68, that was on 35% oxygen. Sodium 140, potassium 4.6, chloride 93, bicarbonate 44, BUN 22, creatinine 0.8, calcium 8.7. AST 42, ALT 92, alk phos is 69. Albumin is 3.2, procalcitonin 0.05. Microbiology, blood culture, there is no growth. IMPRESSION AND PLAN: Chronic obstructive lung disease, hypoventilation syndrome, sleep apnea syndrome, morbid obesity, severe pulmonary hypertension, chronic lower extremity swelling. We will continue noninvasive ventilation at nighttime. Continue IV and inhaled bronchodilator. Continue diuretics. We will add Diamox for few days. Once the blood pressure improves, may increase sildenafil to three times a day. Fall precautions. I had a long discussion with the patient about hypoventilation syndrome, sleep apnea syndrome in relation to pulmonary retention and respiratory failure. She expressed understanding and will be compliant with the BiPAP. Thank you and we will follow with you. Oh Gonzáles MD
[2018-08-14] MEDS: Albuterol-Ipratrop 3 mg / 0.5 (3 ml) UD IH SCH ×4 (01:40→19:00)
[2018-08-14] MEDS: MethylPREDNISolone 40 mg Vial IVP SCH ×3 (05:20→21:21)
[2018-08-14] MEDS: Pantoprazole 40 mg EC Tab PO SCH (05:20)
[2018-08-14] MEDS: Arformoterol 15 mcg/2 ml Inh Sol IH SCH ×2 (07:25→19:00)
[2018-08-14] MEDS: Budesonide 0.5 mg/2 ml Inhal Susp UD IH SCH ×2 (07:25→19:00)
[2018-08-14] MEDS: Enoxaparin 40 mg Syringe SC SCH (11:20)
[2018-08-14] MEDS: Sildenafil 20 MG TAB PO SCH ×2 (11:21→17:07)
--- NOTE | 2018-08-14 11:54 | CP.PCM.PN ---
Subjective - Date & Time of Evaluation Date of Evaluation: 08/14/18 Time of Evaluation: 10:50 - Subjective Subjective: NAD, denies chest pain, no SOB Objective - Vital Signs/Intake and Output Vital Signs (last 24 hours): Temp Pulse Resp BP Pulse Ox 98.6 F 71 18 125/66 98 08/14/18 10:00 08/14/18 10:00 08/14/18 10:00 08/14/18 11:21 08/13/18 16:00 - Medications Medications: Current Medications Acetaminophen (Tylenol 325mg Tab) 650 mg PO Q4H PRN; Protocol PRN Reason: pain fever Acetazolamide (Diamox 250 Mg Tab) 250 mg PO BID [facility] Last Admin: 08/14/18 11:21 Dose: 250 mg Albuterol/Ipratropium (Duoneb 3 Mg/0.5 Mg (3 Ml) Ud) 3 ml IH Q2H PRN; Protocol PRN Reason: Shortness of Breath Albuterol/Ipratropium (Duoneb 3 Mg/0.5 Mg (3 Ml) Ud) 3 ml IH [id number] CARLOS A; Protocol Last Admin: 08/14/18 07:25 Dose: 3 ml Arformoterol Tartrate (Brovana) 15 mcg IH [id number] CARLOS A Last Admin: 08/14/18 07:25 Dose: 15 mcg Aspirin (Ecotrin) 81 mg PO 0800 CARLOS A; Protocol Last Admin: 08/14/18 07:49 Dose: 81 mg Atorvastatin Calcium (Lipitor) 10 mg PO DIN CARLOS A; Protocol Last Admin: 08/13/18 18:05 Dose: 10 mg Azithromycin (Zithromax) 250 mg PO DAILY CARLOS A; Protocol Last Admin: 08/14/18 11:20 Dose: 250 mg Budesonide (Pulmicort Respules) 0.5 mg IH [id number] CARLOS A; Protocol Last Admin: 08/14/18 07:25 Dose: 0.5 mg Cyanocobalamin (Vitamin B12 1000 Mcg Tab) 1,000 mcg PO DAILY CARLOS A; Protocol Last Admin: 08/14/18 11:20 Dose: 1,000 mcg Enoxaparin Sodium (Lovenox) 40 mg SC DAILY CARLOS A; Protocol Last Admin: 08/14/18 11:20 Dose: 40 mg Ergocalciferol (Drisdol 50,000 Intl Units Cap) 1 cap PO QWK CARLOS A; Protocol Last Admin: 08/13/18 10:56 Dose: 1 cap Famotidine (Pepcid) 40 mg PO HS CARLOS A; Protocol Last Admin: 08/13/18 21:02 Dose: 40 mg Furosemide (Lasix) 40 mg IVP DAILY CARLOS A Last Admin: 08/14/18 11:21 Dose: 40 mg Methylprednisolone (Solu-Medrol) 40 mg IVP Q8 CARLOS A; Protocol Last Admin: 08/14/18 05:20 Dose: 40 mg Montelukast Sodium (Singulair) 10 mg PO HS CARLOS A; Protocol Last Admin: 08/13/18 21:02 Dose: 10 mg Pantoprazole Sodium (Protonix Ec Tab) 40 mg PO 0600 CARLOS A; Protocol Last Admin: 08/14/18 05:20 Dose: 40 mg Sildenafil Citrate (Revatio) 20 mg PO BID CARLOS A; Protocol Last Admin: 08/14/18 11:21 Dose: 20 mg - Respiratory Exam Respiratory Exam: Clear to Ausculation Bilateral, NORMAL BREATHING PATTERN - Cardiovascular Exam Cardiovascular Exam: REGULAR RHYTHM - GI/Abdominal Exam GI & Abdominal Exam: Soft, Normal Bowel Sounds - Extremities Exam Extremities Exam: Pedal Edema - Neurological Exam Neurological Exam: Alert, Awake - Skin Skin Exam: Dry, Warm Assessment and Plan (1) COPD exacerbation Status: Acute - Assessment and Plan (Free Text) Plan: continue TCU/pulmonary follow-up/Dr. Martinez to resume care of patient in am
--- NOTE | 2018-08-14 21:16 | PN ---
DATE: 08/14/2018 PULMONARY PROGRESS NOTE REFERRING PHYSICIAN: Dr. Prajapati. SUBJECTIVE: She is lying in the bed, head at 45 degrees. Night was unremarkable. Tolerated BiPAP well. Cough and shortness of breath is better. No nausea, no vomiting, no diarrhea. Decreased leg swelling. OBJECTIVE GENERAL: In no acute distress. VITAL SIGNS: Temperature is 98, heart rate 78, respiratory rate is 20, blood pressure 117/68, pulse ox 98% on 3 liters nasal cannula. HEENT: Moist mucous membranes. Crowded airway. Mallampati score is 4. NECK: Supple. No JVD. LUNGS: Have decreased breaths on the bases. Scattered rhonchi. HEART: S1 and S2. ABDOMEN: Soft, nontender. No organomegaly. EXTREMITIES: Decreased edema. NEUROLOGIC: Awake, alert, follows simple commands. MEDICATIONS: She is on Brovana inhaled twice a day, Diamox 250 mg twice a day, vitamin D weekly, albuterol/Atrovent nebulizer every 12 hours as needed and every 6 hours [id number], Ecotrin 81 mg daily, Lasix 40 mg daily, Lipitor 10 mg daily, Lovenox 40 mg subcutaneously daily, Pepcid 40 mg daily, Protonix 40 mg daily, Pulmicort inhaled twice a day, sildenafil 20 mg every 12 hours, Singulair 10 mg daily, Solu-Medrol 40 mg every 8 hours, Tylenol on as-needed basis, vitamin B12 1000 mcg daily, Zithromax 250 mg daily. LABORATORY DATA: Reviewed. No new lab is available since yesterday. IMPRESSION AND PLAN: Chronic obstructive lung disease, hypoventilation syndrome, sleep apnea syndrome, morbid obesity, severe pulmonary hypertension, lower extremity swelling. Pulmonary point of view, slowly improving. We will decrease Solu-Medrol to 40 every 12 hours. Continue diuretics. Continue pulmonary vasodilator. Gastric prophylaxis, deep venous thrombosis prophylaxis. Fall precaution. Continue therapy. Encouraged bilevel positive airway pressure use at nighttime. Thank you and we will follow with you. Oh Gonzáles MD
[2018-08-15] MEDS: Albuterol-Ipratrop 3 mg / 0.5 (3 ml) UD IH SCH ×4 (02:51→20:51)
[2018-08-15] MEDS: Pantoprazole 40 mg EC Tab PO SCH (05:44)
[2018-08-15] MEDS: Budesonide 0.5 mg/2 ml Inhal Susp UD IH SCH ×2 (07:24→20:51)
[2018-08-15] MEDS: Arformoterol 15 mcg/2 ml Inh Sol IH SCH ×2 (07:24→20:51)
[2018-08-15] MEDS: Sildenafil 20 MG TAB PO SCH ×2 (09:10→17:04)
[2018-08-15] MEDS: Enoxaparin 40 mg Syringe SC SCH (09:10)
[2018-08-15] MEDS: MethylPREDNISolone 40 mg Vial IVP SCH ×2 (09:10→21:39)
[2018-08-15 09:17] LABS: ALB/GLOB RATIO 1.2 (1.1-1.8); ALBUMIN 3.4 g/dL (3.0-4.8); CALCIUM 9.6 mg/dL (8.4-10.5)
--- NOTE | 2018-08-15 15:43 | PN ---
DATE: 08/15/2018 PULMONARY PROGRESS NOTE REFERRING PHYSICIAN: Dr. Bernice Martinez. SUBJECTIVE: The patient is sitting up at bedside. No acute distress. No overnight events reported. Reported wearing BiPAP last night. The patient reports improvement in shortness of breath. Denies any coughing. Still gets short of breath with exertion. No headache, rhinitis, chest pain, abdominal pain, nausea, vomiting, diarrhea, leg pain, or leg swelling reported. OBJECTIVE: GENERAL: No acute distress. VITAL SIGNS: Blood pressure 124/74, pulse 88, oxygen saturation 98%, and temperature 98.7. HEENT: Moist mucous membranes. Mallampati score is 4. Crowded airway. NECK: Supple. No JVD. LUNGS: Scattered rhonchi bilaterally. CARDIOVASCULAR: S1 and S2 audible. ABDOMEN: Soft and nontender. No distention. No organomegaly. EXTREMITIES: Trace bilateral lower extremity edema. NEUROLOGIC: Awake, alert, and verbal. Follows commands. MEDICATIONS: Reviewed. Tylenol 650 mg every 4 hours p.r.n. for pain and fever, Diamox 250 mg twice a day, DuoNeb 3 mL inhalation every 2 hours p.r.n., DuoNeb 3 mL inhalation every 6 hours, Brovana 15 mcg every 12 hours, aspirin 81 mg daily, Lipitor 10 mg at dinner, Zithromax 250 mg daily, Pulmicort 0.5 mg every 12 hours, vitamin B12 1000 mcg p.o. daily, Lovenox 40 mg subcutaneous daily, ergocalciferol 1 cap weekly 50,000 unit, Pepcid 40 mg at bedtime., Lasix 40 mg daily, Solu-Medrol 40 mg every 12 hours, Singulair 10 mg at bedtime, Protonix 40 mg daily, and sildenafil 20 mg twice a day. LABORATORY DATA: Reviewed. Sodium 140, potassium 5.2, chloride 99, carbon dioxide 42, anion gap 4, BUN 25, creatinine 1.1, GFR 59, random glucose 135, calcium 9.6, total bilirubin 0.3, AST 43, ALT 115, alkaline phosphatase 73, total protein 6.2, albumin 3.4, globulin 2.9, and albumin-globulin ratio 1.2. IMPRESSION AND PLAN: Chronic obstructive lung disease, hypoventilation syndrome, sleep apnea syndrome, morbid obesity, and severe pulmonary hypertension. Pulmonary point of view, we will decrease Solu-Medrol to 20 mg every 12 hours. Continue diuretics. Continue pulmonary vasodilator. We will increase sildenafil to three times a day. Gastric prophylaxis, deep venous thrombosis prophylaxis, and fall precaution. Continue physical therapy. Continue bilevel positive airway pressure use at bedtime. The patient needs supplemental oxygen while at home and needs to use bilevel positive airway pressure machine at 35% oxygen while at home. The patient will need to go home on sildenafil. This patient was seen and examined with Dr. Gonzáles. Discussed assessment and plan as described above. Thank you for this consult. We will follow with you. Hany Wilkes APN Oh Gonzáles MD
[2018-08-16] MEDS: Albuterol-Ipratrop 3 mg / 0.5 (3 ml) UD IH SCH ×4 (01:47→20:25)
--- NOTE | 2018-08-16 05:02 | PN ---
DATE: 08/15/2018 SUBJECTIVE: The patient is a 73-year-old female. The patient was seen and examined at bedside on 08/15/2018. Looking comfortable. No fever, no chills. No nausea, vomiting, or diarrhea. No hematuria or hematochezia. No swelling of the leg. No chest pain. No palpitation. No headache. No dizziness. PHYSICAL EXAMINATION: VITAL SIGNS: Blood pressure 124/74, pulse 88, oxygen saturation 98%, and temperature 98.6. HEENT: Head, normocephalic and atraumatic. Eyes, PERRLA. Extraocular muscles intact. Conjunctivae clear. Nose patent. Mucous membranes moist. NECK: Supple. No carotid bruit. No JVD or thyromegaly. CHEST: Bilaterally symmetrical. HEART: S1, S2 positive. LUNGS: Scattered rhonchi bilaterally. ABDOMEN: Soft. Nontender. No organomegaly. EXTREMITIES: No edema. No cyanosis. NEUROLOGIC: The patient is awake and alert. Moving all four extremities. No focal deficits. MEDICATIONS: Tylenol, Diamox, DuoNeb, Brovana, aspirin, Lipitor, Zithromax, Lovenox, Pepcid, Lasix, Solu-Medrol, Protonix, and sildenafil. LABORATORY DATA: Sodium 140, potassium 5.2, BUN 25, creatinine 1.1, glucose 135. AST 43, ALT 115. ASSESSMENT AND PLAN: Ms. Bong Connelly is a 73-year-old lady with multiple medical problems with morbid obesity, chronic obstructive lung disease, hypoventilation syndrome, sleep apnea syndrome, severe pulmonary hypertension. Getting tapering dose of Solu-Medrol. Decondition regarding physical therapy. Continue vasodilators. [employer] increased the sildenafil. Gastric and deep venous thrombosis prophylaxis given. Physical therapy. Repeat laboratories. We will follow up. Bernice Martinez MD
[2018-08-16] MEDS: Enoxaparin 40 mg Syringe SC SCH (05:13)
[2018-08-16] MEDS: Pantoprazole 40 mg EC Tab PO SCH (05:14)
[2018-08-16] MEDS: Budesonide 0.5 mg/2 ml Inhal Susp UD IH SCH ×2 (07:26→20:25)
[2018-08-16] MEDS: Arformoterol 15 mcg/2 ml Inh Sol IH SCH ×2 (07:26→20:25)
[2018-08-16 07:52] LABS: ALB/GLOB RATIO 1.1 (1.1-1.8); ALBUMIN 3.2 g/dL (3.0-4.8); CALCIUM 9.7 mg/dL (8.4-10.5)
[2018-08-16] MEDS: Sildenafil 20 MG TAB PO SCH ×3 (10:00→17:11)
[2018-08-16] MEDS: MethylPREDNISolone 40 mg Vial IVP SCH ×2 (10:01→17:11)
--- NOTE | 2018-08-16 10:55 | PN ---
DATE: 08/16/2018 PULMONARY PROGRESS NOTE REFERRING PHYSICIAN: Bernice Martinez MD SUBJECTIVE: The patient is sitting up in bed. No acute distress. No overnight events reported. The patient does report shortness of breath with exertion. No headache, rhinitis, cough, chest pain, abdominal pain, nausea, vomiting, diarrhea, leg pain, or leg swelling reported. OBJECTIVE: GENERAL: No acute distress. VITAL SIGNS: Blood pressure 103/60, pulse 82, temperature 98, and oxygen saturation 90%. HEENT: Moist mucous membranes. Crowded airway. Mallampati score is 4. NECK: Supple. No JVD. LUNGS: Few scattered rhonchi bilaterally. CARDIOVASCULAR: S1 and S2 audible. ABDOMEN: Soft and nontender. No distention. No organomegaly. EXTREMITIES: Trace bilateral lower extremity edema. NEUROLOGIC: Awake, alert, and verbal. Follows commands. MEDICATIONS: Reviewed. Tylenol 650 mg every 4 hours p.r.n. for pain and fever, Diamox 250 mg twice a day, DuoNeb 3 mL inhalation every 2 hours p.r.n., DuoNeb 3 mL inhalation every 6 hours, Brovana 15 mcg every 12 hours, aspirin 81 mg daily, Lipitor 10 mg at dinner, Zithromax 250 mg p.o. daily, Pulmicort 0.5 mg every 12 hours, vitamin B12 1000 mcg daily, Lovenox 40 mg subcutaneous daily, ergocalciferol 50,000 units 1 cap weekly, Pepcid 40 mg daily, Lasix 40 mg IV push daily, Solu-Medrol 20 mg IV push every 12 hours, Singulair 10 mg at bedtime, Protonix 40 mg daily, and sildenafil 20 mg three times a day. LABORATORY DATA: Reviewed. Sodium 141, potassium 5.2, chloride 96, carbon dioxide 46, anion gap 4, BUN 25, creatinine 1.1, GFR 59, random glucose 86, calcium 9.7, total bilirubin 0.5, AST 35, ALT 96, alkaline phosphatase 70, total protein 6, albumin 3.2, globulin 2.8, and albumin-globulin ratio 1.1. IMPRESSION AND PLAN: Chronic obstructive lung disease, hypoventilation syndrome, sleep apnea syndrome, morbid obesity, and severe pulmonary hypertension. Pulmonary point of view, we will decrease Lasix to 20 mg daily. We will order labs in the morning. Continue steroids, pulmonary vasodilator, gastric prophylaxis, deep venous thrombosis prophylaxis, and fall precaution. Continue physical therapy. Continue bilevel positive airway pressure use at bedtime, head of bed elevated, sleep apnea precaution. The patient will need to go home on sildenafil and will need supplemental oxygen at home. This patient was seen and examined with Dr. Gonzáles. Discussed assessment and plan as described above. Thank you for this consult. We will follow with you. Hany Wilkes APN Oh Gonzáles MD
--- NOTE | 2018-08-16 22:58 | PN ---
DATE: 08/16/2018 SUBJECTIVE: The patient is a 73-year-old female. The patient was seen and examined at the bedside on 08/16/2018. Looking comfortable. No fever, no chills. No hematuria or hematochezia. No swelling of the leg. Cough and shortness of breath is better. PHYSICAL EXAMINATION VITAL SIGNS: Blood pressure 103/60, pulse 82, temperature 98, and oxygen saturation 90%. HEENT: Head; normocephalic and atraumatic. Eyes; PERRLA. Extraocular muscles intact. Conjunctivae clear. Nose patent. Mucous membranes moist. NECK: Supple. No carotid bruit. No JVD or thyromegaly. CHEST: Bilaterally symmetrical. HEART: S1, S2 positive. LUNGS: Clear to auscultation. ABDOMEN: Soft. Bowel sound present. No organomegaly. EXTREMITIES: No edema. No cyanosis. NEUROLOGIC: The patient is awake and alert. Follows simple commands. MEDICATIONS: Tylenol, Diamox, DuoNeb, Brovana, aspirin, Lipitor, Pulmicort, Lovenox, Lasix, Solu-Medrol, Protonix, and sildenafil. LABORATORY DATA: Sodium 141, potassium 5.2, BUN 25, creatinine 1.1, calcium 9.7. AST 35, ALT 96. ASSESSMENT AND PLAN: Ms. Maricel Woody is a 73-year-old female with chronic obstructive lung disease, hypoventilation syndrome, sleep apnea syndrome, morbid obesity, and severe pulmonary hypertension. Getting tapering dose of steroid. Gastric and deep venous thrombosis prophylaxis. Getting physical therapy. According to pulmonary, the patient need home oxygen Bernice Martinez MD [facility]
[2018-08-17] MEDS: Albuterol-Ipratrop 3 mg / 0.5 (3 ml) UD IH SCH ×4 (01:52→20:24)
[2018-08-17] MEDS: Enoxaparin 40 mg Syringe SC SCH (05:47)
[2018-08-17] MEDS: MethylPREDNISolone 40 mg Vial IVP SCH (05:48)
[2018-08-17] MEDS: Pantoprazole 40 mg EC Tab PO SCH (05:48)
[2018-08-17 07:22] LABS: ALB/GLOB RATIO 1.2 (1.1-1.8); ALT/SGPT 84 U/L (7-56); AST/SGOT 27 U/L (14-36); BLOOD UREA NITROGEN 26 mg/dL (7-21); CALCIUM 9.1 mg/dL (8.4-10.5); GFR NON-AFRICAN AMERICAN 54
[2018-08-17] MEDS: Arformoterol 15 mcg/2 ml Inh Sol IH SCH ×2 (07:26→20:24)
[2018-08-17] MEDS: Budesonide 0.5 mg/2 ml Inhal Susp UD IH SCH ×2 (07:26→20:24)
[2018-08-17] MEDS: Sildenafil 20 MG TAB PO SCH ×3 (10:50→18:14)
--- NOTE | 2018-08-17 15:50 | PN ---
DATE: 08/17/2018 PULMONARY PROGRESS NOTE REFERRING PHYSICIAN: Bernice Martinez MD SUBJECTIVE: The patient is sitting up at bedside, in no acute distress. No overnight events reported. The patient reports using BiPAP machine last night, reports shortness of breath with exertion. No coughing. No headache, rhinitis, chest pain, abdominal pain, nausea, vomiting, diarrhea, leg pain, leg swelling reported. OBJECTIVE: GENERAL: No acute distress. VITAL SIGNS: Blood pressure 102/63, pulse 77, temperature 97, oxygen saturation 96%. HEENT: Moist mucous membranes. Mallampati score of 4. Crowded airway. NECK: Supple. No JVD. LUNGS: Few scattered rhonchi bilaterally. CARDIOVASCULAR: S1, S2 audible. ABDOMEN: Soft, nontender. No distension. No organomegaly. EXTREMITIES: Trace bilateral lower extremity edema. NEUROLOGIC: Awake, alert, verbal, follows commands. MEDICATIONS: Reviewed. Tylenol 650 every 4 hours p.r.n., Diamox 250 twice a day, DuoNeb 3 mL inhalation every 2 hours p.r.n., DuoNeb 3 mL inhalation every 6 hours, Brovana 15 mcg every 12 hours, aspirin 81 mg daily, Lipitor 10 mg dinner, Zithromax 250 mg daily, Pulmicort 0.5 mg inhalation every 12 hours, vitamin B12 1000 mcg daily, Lovenox 40 mg daily, ergocalciferol 43392 units 1 cap weekly, Pepcid 40 mg at bedtime, Lasix 20 mg daily, Solu-Medrol 20 mg twice a day, Singulair 10 mg at bedtime, Protonix 40 mg daily, sildenafil 20 mg 3 times a day. LABORATORY DATA: Reviewed. Sodium 140, potassium 4.2, chloride 98, carbon dioxide 38, anion gap 8, BUN 26, creatinine 1, GFR greater than 60, random glucose 84, calcium 9.1, total bilirubin 0.5. AST 27, ALT 84, alkaline phosphatase 63, total protein 5.7, albumin 3, globulin 2.6, albumin-globulin ratio 1.2. IMPRESSION AND PLAN: Chronic obstructive lung disease, hypoventilation syndrome, sleep apnea syndrome, morbid obesity, severe pulmonary hypertension. Pulmonary point of view, we will decrease Diamox to daily, order labs in the morning, continue steroids, pulmonary vasodilator, gastric prophylaxis, deep venous thrombosis prophylaxis, fall precaution. Continue physical therapy, continue BiPAP use at bedtime, head of bed elevated, continue supplemental oxygen, sleep apnea precaution. This patient will need sleep study and pulmonary function test as outpatient. This patient was seen and examined with Dr. Gonzáles. Discussed assessment and plan as described above. Thank you for this consult, we will follow with you. Hany Wilkes APN Oh Gonzáles MD
[2018-08-18] MEDS: Albuterol-Ipratrop 3 mg / 0.5 (3 ml) UD IH SCH ×3 (01:55→13:28)
[2018-08-18 07:04] LABS: HEMOGLOBIN 10.4 g/dL (12.0-16.0); MEAN CORPUSCULAR HEMOGLOBIN 27.2 pg (25.0-35.0); MEAN CORPUSCULAR HGB CONC 28.6 g/dl (31.0-37.0); MEAN PLATELET VOLUME 10.6 fl (7.0-11.0); RBC 3.83 10^6/uL (3.5-6.1); WHITE BLOOD COUNT 8.3 10^3/uL (4.5-11.0)
[2018-08-18 07:26] LABS: BLOOD UREA NITROGEN 24 mg/dL (7-21); CALCIUM 9.3 mg/dL (8.4-10.5); GFR NON-AFRICAN AMERICAN 54
[2018-08-18] MEDS: Arformoterol 15 mcg/2 ml Inh Sol IH SCH (08:53)
[2018-08-18] MEDS: Budesonide 0.5 mg/2 ml Inhal Susp UD IH SCH (08:53)
[2018-08-18] MEDS: Sildenafil 20 MG TAB PO SCH ×2 (10:13→13:04)
--- NOTE | 2018-08-18 12:26 | PN ---
DATE: 08/18/2018 PULMONARY PROGRESS NOTE REFERRING PHYSICIAN: Bernice Martinez MD SUBJECTIVE: Patient is sitting at bedside, no acute distress, reports wearing BiPAP machine last night, shortness of breath with exertion. No headache, rhinitis, cough, chest pain, abdominal pain, nausea, vomiting, diarrhea, or leg pain reported. OBJECTIVE: GENERAL: No acute distress. VITAL SIGNS: Blood pressure 105/65, pulse 78, temperature 98.7, oxygen saturation 92%. HEENT: Moist mucous membranes. Mallampati score of 4. Crowded airway. NECK: Supple. No JVD. LUNGS: Few scattered rhonchi bilaterally. CARDIOVASCULAR: S1 and S2, audible. ABDOMEN: Soft and nontender. No distension. No organomegaly. EXTREMITIES: Trace bilateral lower extremity edema. NEUROLOGIC: Awake, alert and verbal. Follows commands. MEDICATIONS: Reviewed. Tylenol 650 every 4 hours p.r.n., Diamox 250 daily, Duoneb 3 mL inhalation every 2 hours p.r.n., Duoneb 3 mL solution every 6 hours, Brovana 15 mcg every 12 hours, aspirin 81 mg daily, Lipitor 10 mg at dinner, Pulmicort 0.5 mg every 12 hours, vitamin B12 1000 mcg daily, ergocalciferol 50,000 units 1 cap weekly, Pepcid 40 mg at bedtime, Lasix 20 mg IV push daily, Singulair 10 mg daily, Protonix 40 mg daily, prednisone 20 mg daily, sildenafil 20 mg 3 times a day. LABORATORY DATA: Reviewed. WBC 8.3, RBC 3.83, hemoglobin 10.4, hematocrit 36.4 and platelets 108. Sodium 140, potassium 4.3, chloride 99, carbon dioxide 41, anion gap 4, BUN 24, creatinine 10, GFR greater than 60, random glucose 83, calcium 9.3. IMPRESSION AND PLAN: Chronic obstructive lung disease, hypoventilation syndrome, sleep apnea syndrome, morbid obesity, severe pulmonary hypertension. Pulmonary point of view, we will discontinue Zithromax, continue inhaled bronchodilators. We will decrease prednisone to 15 mg daily, gastric prophylaxis, deep venous thrombosis prophylaxis, fall precaution. Continue physical therapy. Continue bilevel positive airway pressure use at bedtime. Head of bed elevated. Continue supplemental oxygen, sleep apnea precaution. Patient will need sleep study and full pulmonary function test as an outpatient. This patient was seen and examined with Dr. Gonzáles. Discussed assessment and plan as described above. Thank you for this consult. We will follow with you. Hany Wilkes APN Oh Gonzáles MD
[2018-08-18 16:13] VITALS: BP 108/67; RESP 20; TEMP 97.8
[2018-08-18 17:08] VITALS: PULSE 84; O2SAT 97
== END 2018-08-18 17:27 | disposition home or self-care (01) | DRG 192 ==
LOC: TRCU 15:28
PROVIDERS: ADMIT Internal Medicine; ATTEND Internal Medicine
PROC: F07Z9FZ Gait Training/Functional Ambulation Treatment using Assistive, Adaptive, Supportive or Protective Equipment (ICD-10-PCS; principal; 2018-08-14)
PROC: F07Z5ZZ Bed Mobility Treatment (ICD-10-PCS; 2018-08-14)
PROC: F07Z8FZ Transfer Training Treatment using Assistive, Adaptive, Supportive or Protective Equipment (ICD-10-PCS; 2018-08-14)
PROC: F07L6YZ Therapeutic Exercise Treatment of Musculoskeletal System - Lower Back / Lower Extremity using Other Equipment (ICD-10-PCS; 2018-08-14)
PROC: F08Z1FZ Dressing Techniques Treatment using Assistive, Adaptive, Supportive or Protective Equipment (ICD-10-PCS; 2018-08-14)
PROC: 5A09357 Assistance with Respiratory Ventilation, Less than 24 Consecutive Hours, Continuous Positive Airway Pressure (ICD-10-PCS; 2018-08-14)
PROC: F08Z2FZ Grooming/Personal Hygiene Treatment using Assistive, Adaptive, Supportive or Protective Equipment (ICD-10-PCS; 2018-08-15)
DX: J44.1 Chronic obstructive pulmonary disease with (acute) exacerbation (principal); G47.33 Obstructive sleep apnea (adult) (pediatric); I27.20 Pulmonary hypertension, unspecified; E66.01 Morbid (severe) obesity due to excess calories; Z68.38 Body mass index [BMI] 38.0-38.9, adult; Z87.891 Personal history of nicotine dependence

== ENCOUNTER 2018-09-02 10:44 | Inpatient (IN) | payer MEDICARE, OTHER ==
[2018-09-02 10:50] VITALS: BMI 36.5
--- NOTE | 2018-09-02 10:56 | ED PDOC ---
Arrival/HPI - General Chief Complaint: Shortness Of Breath Time Seen by Provider: 09/02/18 10:46 Historian: EMS - History of Present Illness Narrative History of Present Illness (Text): 09/02/18 10:55 A 73 year old female, whose past medical history includes COPD, CHF, pulmonary hypertension, hyperventilation syndrome, sleep apnea, and morbid obesity, presents to the emergency department brought in by EMS complaining of shortness of breath for the past few days. EMS reports patient was recently in the ER for the same symptoms and was administered a duoneb on the way to the ER. HPI and ROS are limited due to patient's condition. PMD: Bernice Calixto Time/Duration: Other (past few days) Symptom Onset: Gradual Symptom Course: Unchanged Activities at Onset: Light Context: Home Past Medical History - Provider Review Nursing Documentation Reviewed: Yes - Infectious Disease Hx of Infectious Diseases: None - Reproductive Menopause: Yes - Cardiac Hx Hypertension: Yes - Pulmonary Hx Chronic Obstructive Pulmonary Disease (COPD): Yes - Neurological Hx Neurological Disorder: Yes - HEENT Hx HEENT Disorder: Yes Hx Deafness: Yes (SLIGHTLY UPPER [place]) - Renal Hx Renal Disorder: No - Endocrine/Metabolic Hx Endocrine Disorders: No - Hematological/Oncological Hx Blood Disorders: No - Integumentary Hx Dermatological Disorder: Yes Other/Comment: 07-26-18 SLIGHT PITTING EDEMA +1.DARKENED SKIN DISCOLORATION TO LE,ASHY,THIN FLAKY VERY DRY SKIN.ELONGATED TOE NAILS,CALLOUSED BILATERAL HEEL. - Musculoskeletal/Rheumatological Hx Falls: Yes (recent fall07/26/18) - Gastrointestinal Hx Gastrointestinal Disorders: No - Genitourinary/Gynecological Hx Genitourinary Disorders: Yes (INOCNTINENT,) Hx Reproductive Disorders: No - Psychiatric Hx Psychophysiologic Disorder: Yes (USED TO SMOKE AND DRINK. QUIT 40 YRS AGO.) Hx Substance Use: No - Surgical History Hx Hysterectomy: Yes (2013) - Anesthesia Hx Anesthesia: No Hx Anesthesia Reactions: No Hx Malignant Hyperthermia: No Family/Social History - Physician Review Nursing Documentation Reviewed: Yes Family/Social History: No Known Family HX Smoking Status: Former Smoker Hx Alcohol Use: Yes (socially) Hx Substance Use: No Allergies/Home Meds Allergies/Adverse Reactions: Allergies isosorbide [From Imdur] Adverse Reaction (Verified 08/12/18 17:25) SHORTNESS OF BREATH per - pt on home med Revatio which does not flag interaction with nitroglycerin. Do not give nitroglycerin when pt taking revatio. nitroglycerin Adverse Reaction (Verified 08/12/18 17:25) SHORTNESS OF BREATH per - pt on home med Revatio which does not flag interaction with nitroglycerin. Do not give nitroglycerin when pt taking revatio. Home Medications: Home Meds Medication Instructions Recorded Confirmed Albuterol HFA [Ventolin HFA 90 1 puff IH Q4 07/26/18 09/02/18 mcg/actuation (8 g)] Aspirin [Ecotrin] 81 mg PO DAILY 07/26/18 09/02/18 Carvedilol [Coreg] 1.25 mg PO BID 07/26/18 09/02/18 Enalapril Maleate [Vasotec] 2.5 mg PO DAILY 07/26/18 09/02/18 Ergocalciferol (Vitamin D2) 50,000 unit PO QWK 07/26/18 09/02/18 [Vitamin D2] Montelukast Sodium [Singulair] 10 mg PO DAILY 07/26/18 09/02/18 Review of Systems - Review of Systems Systems not reviewed;Unavailable: Respiratory Distress Physical Exam - Physical Exam Narrative Physical Exam (Text): 09/02/18 10:56 Constitutional: No acute distress. Head: Normocephalic. Atraumatic. Eyes: PERRL. ENT: Moist mucous membranes. Neck: Supple. Cardiovascular: Tachycardic rate. Chest: No tenderness. Respiratory: Diffuse ronchi. GI: Soft. Nontender. Nondistended. Back: No CVA tenderness. Musculoskeletal: Bilteral pitting edema. Skin: Warm to touch. Neurologic: Alert, no focal deficit. Vital Signs Reviewed: Yes Vital Signs Temp Pulse Resp BP Pulse Ox 09/02/18 10:45 102.6 F H 121 H 26 H 148/80 95 Temperature: Febrile Pulse: Tachycardic Respiratory Rate: Tachypneic Medical Decision Making ED Course and Treatment: 09/02/18 10:56 Impression: 73 year old female presents to the emergency department brought in by EMS complaining of shortness of breath. Plan: -- ABG -- EKG -- Labs -- CBC -- COAGs -- Chest X-ray -- Duoneb -- Solumedrol -- Bipap -- Reassess and disposition Prior Visits: Notes and results from previous visits were reviewed. Progress Notes: 09/02/18 10:56 EKG: Ordered, reviewed, and independently interpreted the EKG. Rate : 120 BPM Rhythm : Tachycardia Interpretation : No ST-segment elevations 09/02/18 11:41 Procedure: Chest X-ray Dictator: Oscar Gill MD Impression: Right lower lobe infiltrate consistent with pneumonia. IVF not administered as patient has CHF and blood pressure is good. More risk than harm considered. Dr. Martinez accepts patient to her service, recommends Dr. Gonzáles for consultation. - Scribe Statement The provider has reviewed the documentation as recorded by the Scribsaad Bautista All medical record entries made by the Scribe were at my direction and personally dictated by me. I have reviewed the chart and agree that the record accurately reflects my personal performance of the history, physical exam, medical decision making, and the department course for this patient. I have also personally directed, reviewed, and agree with the discharge instructions and disposition. Disposition/Present on Arrival - Present on Arrival Any Indicators Present on Arrival: No History of DVT/PE: No History of Uncontrolled Diabetes: No Urinary Catheter: No History of Decub. Ulcer: No History Surgical Site Infection Following: None - Disposition Have Diagnosis and Disposition been Completed?: Yes Diagnosis: COPD exacerbation, Pneumonia Disposition: HOSPITALIZED Disposition Time: 11:45 Patient Plan: Admission, Telemetry Condition: GUARDED
[2018-09-02 11:31] LABS: BASO # 0.02 K/mm3 (0.0-2.0); BASO % 0.1 % (0.0-3.0); EOS % 0.1 % (1.5-5.0); HEMOGLOBIN 11.4 g/dL (12.0-16.0); LYMPH # 2.9 (1.2-3.4); LYMPH % 17.3 % (22.0-35.0); MEAN CELL VOLUME 96.6 fl (80.0-105.0); MEAN CORPUSCULAR HEMOGLOBIN 27.7 pg (25.0-35.0); MEAN CORPUSCULAR HGB CONC 28.7 g/dl (31.0-37.0); MEAN PLATELET VOLUME 9.6 fl (7.0-11.0); MONO # 1.1 (0.1-0.6); MONO % 6.5 % (1.0-6.0); RBC 4.11 10^6/uL (3.5-6.1); RED CELL DISTRIBUTION WIDTH 15.9 % (11.5-14.5); WHITE BLOOD COUNT 16.6 10^3/uL (4.5-11.0)
--- NOTE | 2018-09-02 11:31 | RAD ---
Date of service: 09/02/2018 HISTORY: dyspnea COMPARISON: 08/08/2018 FINDINGS: LUNGS: There is an infiltrate in the right lower lobe. PLEURA: No significant pleural effusion identified, no pneumothorax apparent. CARDIOVASCULAR: No aortic atherosclerotic calcification present. Aortic tortuosity Mild cardiomegaly no pulmonary vascular congestion. OSSEOUS STRUCTURES: No significant abnormalities. VISUALIZED UPPER ABDOMEN: Normal. OTHER FINDINGS: None. IMPRESSION: Right lower lobe infiltrate consistent with pneumonia
[2018-09-02 11:35] LABS: INR 1.29; PARTIAL THROMBOPLASTIN TIME 38.4 Seconds (26.9-38.3); PROTHROMBIN TIME 14.6 SECONDS (9.4-12.5)
[2018-09-02 11:37] LABS: ARTERIAL BLOOD GAS HCO3 38.3 mmol/L (21-28); ARTERIAL BLOOD GAS HEMOGLOBIN 10.6 g/dL (11.7-17.4); ARTERIAL BLOOD GAS O2 CAPACITY 14.5 mL/dl (16-24); ARTERIAL BLOOD GAS O2 CONTENT 13.3 ML/dl (15-23); ARTERIAL BLOOD GAS PCO2 59 mm/Hg (35-45); ARTERIAL BLOOD GAS PH 7.42 (7.35-7.45); ARTERIAL BLOOD GAS TCO2 40.1 mmol.L (22-28)
[2018-09-02 11:42] LABS: ALBUMIN 3.9 g/dL (3.0-4.8); ALT/SGPT 44 U/L (7-56); AST/SGOT 50 U/L (14-36); BLOOD UREA NITROGEN 15 mg/dL (7-21); CALCIUM 9.1 mg/dL (8.4-10.5); GFR NON-AFRICAN AMERICAN 54
[2018-09-02] MEDS ORDERED: Vancomycin 1gm in NS 250ml 1 GM/250 ML BAG IVPB STA (11:45)
[2018-09-02] MEDS ORDERED: levoFLOXacin 750 mg in D5W 750 MG/150 ML BAG IVPB STA (11:45)
[2018-09-02] MEDS ORDERED: Cefepime 1gm in NS 100ml 1 GM/100 ML BAG IVPB SCH (11:45)
[2018-09-02] MEDS: Albuterol-Ipratrop 3 mg / 0.5 (3 ml) UD IH SCH ×3 (11:46→12:15)
[2018-09-02 11:47] LABS: B-TYPE NATRIURETIC PEPTIDE 176 pg/mL (0-450)
[2018-09-02 11:50] LABS: TROPONIN I 0.02 ng/mL
[2018-09-02 12:50] LABS: VENOUS BLOOD GAS BASE EXCESS 11.8 mmol/L (0.0-2.0); VENOUS BLOOD GAS PO2 54 mm/Hg (30-55); VENOUS BLOOD PH 7.34 (7.32-7.43)
[2018-09-02 15:00] LABS: PH,URINE 8.5 (4.7-8.0); URINE BILIRUBIN NEGATIVE (NEGATIVE); URINE BLOOD NEGATIVE (NEGATIVE); URINE GLUCOSE (UA) NEGATIVE (NEGATIVE); URINE LEUKOCYTE ESTERASE NEGATIVE Leu/uL (NEGATIVE); URINE PROTEIN 100 mg/dL (<30 mg/dL)
[2018-09-02 15:03] LABS: URINE APPEARANCE CLEAR (CLEAR); URINE COLOR YELLOW (YELLOW)
[2018-09-02 15:08] LABS: URINE AMORPHOUS SEDIMENT FEW /hpf; URINE BACTERIA MOD /hpf; URINE COARSE GRANULAR CAST TRACE /hpf; URINE FINE GRANULAR CAST 0 - 2 /hpf; URINE RBC 0 - 2 /hpf (0-2)
[2018-09-02] MEDS ORDERED: Influenza Vaccine 60 mcg/0.5 mL SYR (4YR UP) IM ONE (17:48)
[2018-09-02] MEDS ORDERED: Pneumococcal 23-Valent Vaccine IM ONE (17:48)
[2018-09-02] MEDS: Sildenafil 20 MG TAB PO SCH (18:36)
[2018-09-02] MEDS ORDERED: Arformoterol 15 mcg/2 ml Inh Sol IH SCH (20:00)
[2018-09-02 20:53] LABS: VENOUS BLOOD GAS PO2 148 mm/Hg (30-55); VENOUS BLOOD PH 7.35 (7.32-7.43)
[2018-09-02] MEDS: Cefepime IV 2 gm in NS 2 GM/100 ML BAG IVPB SCH (21:36)
[2018-09-02] MEDS: MethylPREDNISolone 40 mg Vial IVP SCH (21:37)
[2018-09-02] MEDS ORDERED: Cefepime (Maxipime) 1 g Inj IVPB SCH (22:00)
--- NOTE | 2018-09-02 23:24 | CARD ---
APPROVED REPORT Date of service: 09/02/2018 EKG Measurement Heart [id number] <Conclusion> Sinus tachycardia Right atrial enlargement Nonspecific ST and T wave abnormality Abnormal ECG
[2018-09-02 23:58] LABS: VENOUS BLOOD GAS BASE EXCESS 10.6 mmol/L (0.0-2.0); VENOUS BLOOD GAS PO2 39 mm/Hg (30-55); VENOUS BLOOD PH 7.35 (7.32-7.43)
--- NOTE | 2018-09-03 00:36 | HP ---
DATE OF EXAM: 09/02/2018 The patient is 73-year-old female. The patient was seen and examined at the bedside 09/02/2018. CHIEF COMPLAINT: Shortness of breath. HISTORY OF PRESENT ILLNESS: Ms. Maricel Woody, 73-year-old female whose past medical history include COPD, congestive heart failure, pulmonary hypertension, hyperventilation syndrome, sleep apnea, obesity has two admissions in the past, came to the emergency department by EMS complaining of shortness of breath for the past few days. EMS reported that the patient was recently in the ER for the same symptoms and was admitted. Jac on the way to ER. I saw the patient in the telemetry having BiPAP, feeling little bit better with BiPAP. PAST MEDICAL HISTORY: As above, hypertension, COPD, deafness, swelling of the leg, history of fall, urinary incontinence, hysterectomy. FAMILY HISTORY: Father and mother, noncontributory. HABITS: Never smoked. No drugs. No ethanol. Alcohol, just socially. ALLERGIES: THE PATIENT IS ALLERGIC WITH IMDUR, NITROGLYCERIN. HOME MEDICATIONS: Albuterol, aspirin, Coreg, Vasotec, vitamin D, Singulair. REVIEW OF SYSTEMS: The patient was seen and examined at the bedside in the telemetry having BiPAP, coughing with little bit shortness of breath, swelling of the legs. No palpitations. No chest pain. No hematuria or hematochezia. PHYSICAL EXAMINATION: VITAL SIGNS: Temperature 102.6, pulse 121, respiratory rate 26, blood pressure 148/80, pulse oximetry 95. HEENT: Head is normocephalic and atraumatic. Eyes, PERRLA. Extraocular muscles are intact. Conjunctivae clear. Nose patent. Mucous membranes are moist. NECK: Supple. No carotid bruits. No JVD or thyromegaly. CHEST: Bilaterally symmetrical. HEART: S1 and S2 positive. LUNGS: Diffuse rhonchi. ABDOMEN: Soft. Bowel sounds present. No organomegaly. EXTREMITIES: Has trace edema. NEUROLOGIC: The patient is awake, alert. Follows simple commands. LABORATORY DATA: White blood cells 15.6, hemoglobin 11.4, hematocrit 39.7, platelets 339. Sodium 141, potassium 4.7, BUN 15, creatinine 1.0. Glucose 144. ASSESSMENT AND PLAN: Ms. Maricel Woody, 73-year-old female with leukocytosis, anemia, hyperglycemia, hypomagnesemia, abnormal liver function test, proteinuria, ketonuria, influenza type A and B is negative. Chest x-ray done, right lower lobe infiltrates consistent with pneumonia, history of chronic obstructive pulmonary disease came with shortness of breath, dyspnea. Antibiotics started. Pulmonary consult called. Appreciated Dr. Gonzáles's input. The patient has history of pulmonary hypertension, congestive heart failure, hyperventilation syndrome, sleep apnea, morbid obesity. Dr. Gonzáles put the patient on BiPAP. Brovana, Coreg, vitamin D, albuterol, aspirin, heparin, furosemide given. Antibiotics levofloxacin started. Lipitor started for hypercholesterolemia. Pepcid started. Given Singulair. Steroid dose given. Appreciated Dr. Gonzáles's input. We will repeat labs. We will follow up. Bernice Martinez MD MTDKathy
--- NOTE | 2018-09-03 01:40 | CON ---
DATE: 09/02/2018 PULMONARY CRITICAL CARE CONSULT REFERRING PHYSICIAN: Dr. Martinez. REASON FOR CONSULTATION: Pneumonia, respiratory failure. HISTORY OF PRESENT ILLNESS: This is a 73 years old female with past medical history significant for chronic obstructive lung disease, hypoventilation syndrome, diastolic cardiac dysfunction, pulmonary hypertension, morbid obesity, brought in to emergency room by EMS with cough and shortness of breath. Chest x-ray shows pneumonia. ABG showed CO2 retention and hypoxemia. Placed on noninvasive ventilation. Septic workup was done, antibiotic started. Presently arousable, on noninvasive ventilation. No chest pain. No nausea, no vomiting, no diarrhea. Trace leg swelling. PAST MEDICAL HISTORY: As per history of present illness. FAMILY HISTORY: No significant cardiopulmonary disease reported. SOCIAL HISTORY: Former smoker. Denied any alcohol use. ALLERGIES: ISOSORBIDE, NITROGLYCERIN. MEDICATION: The patient received cefepime 1 g every 24 hours, also received vancomycin one dose. REVIEW OF SYSTEMS: There is no headache, no rhinitis. Has cough, shortness of breath. No chest pain. No nausea, no vomiting, no diarrhea, no dysuria. Does have some leg swelling. PHYSICAL EXAMINATION: GENERAL: She is on noninvasive ventilation. VITAL SIGNS: Temp is 98, heart rate is 82, respiratory rate is 18, blood pressure 103/65, pulse ox 95% on BiPAP. HEENT: Moist mucous membranes. Short thick neck. LUNGS: Scattered rhonchi and wheezing. HEART: S1 and S2. ABDOMEN: Soft, nontender, nondistended. EXTREMITIES: Trace edema. NEUROLOGICAL: Sleepy, arousable. Follows simple commands. LABORATORY DATA: Shows hemoglobin 11.4, hematocrit 39.7, WBC 16.6, platelet is 339. INR 1.29. PTT 38. ABG showed pH 7.42, pCO2 of 59, O2 of 52, this is on BiPAP. Sodium 141, potassium 4.7, chloride 97, bicarbonate 37, BUN 15, creatinine 1, glucose 144, calcium 9.1, phosphorus 2.6, magnesium 1.6, AST 50, ALT 44, alk phos is 122. Troponin 0.02. ProBNP 176. Albumin is 3.9. Urinalysis shows some protein, trace ketones, urobilinogen, wbc 1 to 3. Influenza A and B antibodies are negative. Chest x-ray done in ER shows right lower lobe infiltrate, probably pneumonia. IMPRESSION AND PLAN: Chronic obstructive lung disease, hypoventilation syndrome, sleep apnea syndrome, pulmonary hypertension, cardiac diastolic dysfunction, morbid obesity, has a pneumonia. I agree with present treatment. Continue antibiotics. We will add inhaled bronchodilator, Solu-Medrol. Gastric prophylaxis. We will continue pulmonary vasodilator. Follow up labs in the morning. Thank you, and we will follow with you. Oh Gonzáles MD
[2018-09-03 07:07] LABS: HEMOGLOBIN 10.1 g/dL (12.0-16.0); MEAN CELL VOLUME 96.4 fl (80.0-105.0); MEAN CORPUSCULAR HEMOGLOBIN 27.8 pg (25.0-35.0); MEAN CORPUSCULAR HGB CONC 28.9 g/dl (31.0-37.0); RBC 3.63 10^6/uL (3.5-6.1); RED CELL DISTRIBUTION WIDTH 16.4 % (11.5-14.5); WHITE BLOOD COUNT 17.4 10^3/uL (4.5-11.0)
[2018-09-03 07:25] LABS: IRON 24 ug/dL (45-180)
[2018-09-03 07:35] LABS: % IRON SATURATION 10 % (20-55); TOTAL IRON BINDING CAPACITY 236 ug/dL (265-497)
[2018-09-03 07:36] LABS: LDL CHOLESTEROL 79 mg/dL (0-129)
[2018-09-03 07:44] LABS: BLOOD UREA NITROGEN 23 mg/dL (7-21); GFR NON-AFRICAN AMERICAN > 60
[2018-09-03 07:45] LABS: CALCIUM 8.7 mg/dL (8.4-10.5); HDL CHOLESTEROL 31 mg/dL (29-60)
[2018-09-03] MEDS: Arformoterol 15 mcg/2 ml Inh Sol IH SCH ×2 (08:23→19:18)
[2018-09-03] MEDS: Albuterol-Ipratrop 3 mg / 0.5 (3 ml) UD IH PRN ×2 (08:24→22:42)
[2018-09-03] MEDS: Budesonide 0.5 mg/2 ml Inhal Susp UD IH SCH (08:24)
--- NOTE | 2018-09-03 09:35 | PN ---
DATE: 09/03/2018 PULMONARY PROGRESS NOTE REFERRING PHYSICIAN: Bernice Martinez MD SUBJECTIVE: The patient is lying in bed, BiPAP in place. No acute distress. No overnight events reported. No headache, rhinitis, cough, chest pain, abdominal pain, nausea, vomiting, diarrhea, or leg pain reported. The patient does have shortness of breath with exertion. OBJECTIVE: GENERAL: No acute distress. VITAL SIGNS: Blood pressure 104/74, pulse 75, temperature 98 and oxygen saturation 100% on BiPAP. HEENT: Moist mucous membranes. NECK: Supple. No JVD. Short and thick. LUNGS: Scattered rhonchi bilaterally. CARDIOVASCULAR: S1 and S2, audible. ABDOMEN: Soft and nontender. No distension. EXTREMITIES: Trace bilateral lower extremity edema. NEUROLOGIC: Asleep, easily arousable and verbal. Follows commands. MEDICATIONS: Reviewed. Tylenol 650 every 4 hours p.r.n., DuoNeb 3 mL inhalation every 2 hours p.r.n., Brovana 15 mcg every 12 hours, aspirin 81 mg daily, Lipitor 10 mg at dinner, Zithromax 500 mg daily, Pulmicort 0.5 mg every 12 hours, Coreg 3.125 mg p.o. twice a day, cefepime 2 g every 12 hours, vitamin B12 1000 mcg daily, ergocalciferol 50,000 units weekly, Pepcid 20 mg at bedtime, Lasix 20 mg daily, heparin 5000 units subcutaneous every 8 hours, lisinopril 2.5 mg daily, Solu-Medrol 20 mg every 12 hours, Singulair 10 mg at bedtime and Revatio 20 mg three times a day. LABORATORY DATA: WBC 17.4, RBC 3.63, hemoglobin 10, hematocrit 35 and platelets 298. Sodium 140, potassium 4.3, chloride 100, carbon dioxide 40, anion gap 4, BUN 23, creatinine 0.7, GFR greater than 60, random glucose 112, calcium 8.7. Iron 24, TIBC 236 and percent saturation 10. Triglycerides 70, cholesterol 141, LDL cholesterol 79 and HDL cholesterol 31. IMPRESSION AND PLAN: Chronic obstructive lung disease, hypoventilation syndrome, sleep apnea syndrome, pulmonary hypertension, cardiac diastolic dysfunction, morbid obesity and pneumonia. Continue antibiotic therapy. Continue inhaled bronchodilators, steroids, gastric prophylaxis and deep venous thrombosis prophylaxis. We will place new order for bilevel positive airway pressure to be used at bedtime and as needed. Will place the order for to place the patient on oxygen via nasal cannula 2 liters to titrate the pulse oximetry 90 or greater. The patient would benefit from physical therapy and out of bed to chair. Continue vasodilators. Followup with labs in the morning. This patient was seen and examined with Dr. Gonzáles. Discussed assessment and plan as described above. Thank you for this consult. We will follow with you. Hany Wilkes APN Oh Gonzáles MD
[2018-09-03] MEDS: MethylPREDNISolone 40 mg Vial IVP SCH ×2 (11:44→21:49)
[2018-09-03] MEDS: Cefepime IV 2 gm in NS 2 GM/100 ML BAG IVPB SCH ×2 (11:45→21:49)
[2018-09-03] MEDS: Sildenafil 20 MG TAB PO SCH ×3 (11:46→17:58)
[2018-09-03 13:08] LABS: FOLATE 9.6 ng/mL
[2018-09-04] MEDS: Albuterol-Ipratrop 3 mg / 0.5 (3 ml) UD IH PRN ×6 (00:47→20:00)
--- NOTE | 2018-09-04 01:35 | PN ---
DATE: 09/03/2018 SUBJECTIVE: The patient is a 73-year-old female. The patient was seen and examined at the [facility] on 09/03/2018. Looking comfortable. No fever. No chills. No hematuria. No hematochezia. No headaches. No dizziness. No chest pain. No palpitation. Has shortness of breath with exertion, using nebulizer treatment right now, looking better as compared to yesterday. PHYSICAL EXAMINATION: VITAL SIGNS: Blood pressure 110/70, pulse is 70, temperature 98.1, oxygen saturation 100% on BiPAP, but when I saw the patient, she was without BiPAP. HEENT: Head is normocephalic and atraumatic. Eyes, PERRLA. Extraocular muscles are intact. Conjunctivae clear. Nose patent. Mucous membranes are moist. NECK: Supple. No carotid bruits or thyromegaly. CHEST: Bilaterally symmetrical. LUNGS: Scattered rhonchi bilaterally. HEART: S1 and S2 positive. ABDOMEN: Soft and nontender. No organomegaly. EXTREMITIES: Trace bilateral edema of the lower extremities. NEUROLOGICAL: The patient is awake and alert. Follows simple commands. Moving all four extremities. MEDICATIONS: Tylenol, DuoNeb, Brovana, aspirin, Lipitor, Zithromax, Pulmicort, Coreg, cefepime, vitamin B12, Pepcid, Lasix, heparin, lisinopril, Solu-Medrol, Singulair, Revatio. LABORATORY DATA: White blood cells 17.4, hemoglobin 10, hematocrit 35, platelets 298, sodium 140, potassium 4.3, BUN 26, creatinine 0.7, glucose 112. ASSESSMENT AND PLAN: Ms. Maricel Woody is a 73-year-old lady with multiple medical problems, chronic obstructive lung disease, hypoventilation syndrome, obesity, sleep apnea syndrome, pulmonary hypertension, cardiac diastolic dysfunction, pneumonia, came with shortness of breath, getting antibiotic therapy, continuing bronchodilators and steroids. Gastric and deep venous thrombosis prophylaxis. Will get BiPAP at night. Oxygen through nasal cannula at 2 L as needed. Need physical therapy. Appreciated Dr. Gonzáles's and his nurse practitioner, Hany Wilkes's input. We will follow up. Bernice Martinez MD [facility] # [id number]
[2018-09-04 06:19] LABS: BASO # 0.01 K/mm3 (0.0-2.0); BASO % 0.1 % (0.0-3.0); HEMOGLOBIN 10.3 g/dL (12.0-16.0); LYMPH # 1.8 (1.2-3.4); LYMPH % 11.4 % (22.0-35.0); MEAN CELL VOLUME 97.1 fl (80.0-105.0); MEAN CORPUSCULAR HEMOGLOBIN 27.3 pg (25.0-35.0); MEAN CORPUSCULAR HGB CONC 28.1 g/dl (31.0-37.0); MEAN PLATELET VOLUME 10.3 fl (7.0-11.0); MONO # 0.5 (0.1-0.6); MONO % 3.4 % (1.0-6.0); RBC 3.77 10^6/uL (3.5-6.1); RED CELL DISTRIBUTION WIDTH 16.3 % (11.5-14.5); WHITE BLOOD COUNT 15.9 10^3/uL (4.5-11.0)
[2018-09-04 06:30] LABS: BLOOD UREA NITROGEN 27 mg/dL (7-21); GFR NON-AFRICAN AMERICAN > 60
[2018-09-04] MEDS: Budesonide 0.5 mg/2 ml Inhal Susp UD IH SCH ×2 (08:09→19:19)
[2018-09-04] MEDS: Arformoterol 15 mcg/2 ml Inh Sol IH SCH ×2 (08:09→19:18)
--- NOTE | 2018-09-04 09:00 | PN ---
DATE: 09/04/2018 PULMONARY PROGRESS NOTE REFERRING PHYSICIAN: Bernice Martinez MD SUBJECTIVE: The patient is lying in bed, BiPAP in place. No overnight events reported. Reports feeling well today. No headache, rhinitis, cough, chest pain, abdominal pain, nausea, vomiting, diarrhea, leg pain, or leg swelling reported. The patient does have shortness of breath with exertion. OBJECTIVE: GENERAL: No acute distress. VITAL SIGNS: Blood pressure 119/77, pulse 67, temperature 97.5, and oxygen saturation 95%. HEENT: Moist mucous membranes. NECK: Supple. No JVD. Short and thick. LUNGS: Scattered rhonchi bilaterally. CARDIOVASCULAR: S1 and S2 audible. ABDOMEN: Soft and nontender. No distension. EXTREMITIES: Trace bilateral lower extremity edema. NEUROLOGIC: Asleep, easily arousable, and verbal. Follows commands. MEDICATIONS: Reviewed. Tylenol 650 mg every 4 hours p.r.n. for fever, DuoNeb 3 mL inhalation every 2 hours p.r.n. for shortness of breath, Brovana 15 mcg every 12 hours, aspirin 81 mg daily, Lipitor 10 mg at dinner, Zithromax 500 mg daily, Pulmicort 0.5 mg every 12 hours, Coreg 3.125 mg twice a day, cefepime 2 g every 12 hours, vitamin B12 1000 mcg IM daily, ergocalciferol 50,000 units weekly, Pepcid 20 mg at bedtime, Lasix 20 mg daily, heparin 5000 units subcutaneous every 8 hours, lisinopril 2.5 mg daily, Solu-Medrol 20 mg every 12 hours, Singulair 10 mg at bedtime, and sildenafil 20 mg p.o. three times a day. LABORATORY DATA: Reviewed. WBC 15.9, RBC 3.77, hemoglobin 10.3, hematocrit 36.6, and platelets 252. Sodium 140, potassium 4.7, chloride 99, carbon dioxide 38, anion gap 8, BUN 27, creatinine 0.8, GFR greater than 60, random glucose 116, and calcium 9.0. Blood cultures preliminary, no growth after 24 hours. Urine cultures final, no growth. IMPRESSION AND PLAN: Chronic obstructive lung disease exacerbation, hypoventilation syndrome, sleep apnea syndrome, pulmonary hypertension, cardiac diastolic dysfunction, morbid obesity, and pneumonia. Continue antibiotic therapy, inhaled bronchodilators, steroids, gastric prophylaxis, and deep venous thrombosis prophylaxis. Procalcitonin level pending. Continue bilevel positive airway pressure use at bedtime and as needed. Continue supplemental oxygen, titrate the pulse oximetry 90 or greater. Continue vasodilators. The patient would benefit from physical therapy and out of bed to chair. The patient was seen and examined with Dr. Gonzáles. Discussed assessment and plan as described above. Thank you for this consult. We will follow with you. Hany Wilkes APN Oh Gonzáles MD
[2018-09-04] MEDS: MethylPREDNISolone 40 mg Vial IVP SCH ×2 (09:21→21:42)
[2018-09-04] MEDS: Cefepime IV 2 gm in NS 2 GM/100 ML BAG IVPB SCH ×2 (09:23→21:42)
[2018-09-04] MEDS: Sildenafil 20 MG TAB PO SCH ×3 (09:26→17:35)
--- NOTE | 2018-09-05 02:13 | PN ---
DATE: 09/04/2018 SUBJECTIVE: The patient is a 73-year-old female. The patient was seen and examined at the bedside on 09/04/2018, looking comfortable. No fever. No chills. No hematuria. No hematochezia. No headache. No dizziness. No chest pain. No palpitation. PHYSICAL EXAMINATION: VITAL SIGNS: Blood pressure 120/70, pulse 60, temperature 98.2, oxygen saturation 95%. HEENT: Head: Normocephalic, atraumatic. Eyes: PERRLA. Extraocular muscles are intact. Conjunctivae clear. Nose patent. Mucous membranes moist. NECK: Supple. No carotid bruit. No JVD or thyromegaly. CHEST: Bilaterally symmetrical. HEART: S1 and S2, positive. LUNGS: Scattered rhonchi bilaterally. ABDOMEN: Soft, nontender. No organomegaly. EXTREMITIES: Trace bilateral lower extremity edema. NEUROLOGICAL: The patient is awake, alert, following simple orders. MEDICATIONS: Tylenol, DuoNeb, Brovana, aspirin, Lipitor, Zithromax, Pulmicort, cefepime, vitamin B12, Pepcid, heparin, lisinopril, Solu-Medrol, Singulair, sildenafil. LABORATORY DATA: White blood cells 15.9, hemoglobin 12.3, hematocrit 36.6, platelets 252. Sodium 140, potassium 4.7, BUN 27, creatinine 0.8. GFR greater than 60. Glucose 116. Blood cultures, 24-hour, no growth. Urine cultures, no growth. ASSESSMENT AND PLAN: Ms. Maricel Woody is a 73-year-old female with chronic obstructive lung disease exacerbation, hypoventilation syndrome, sleep apnea syndrome, pulmonary hypertension, cardiac diastolic dysfunction, morbid obesity, pneumonia. Getting antibiotics, inhaled bronchodilators, tapering dose of steroids. Gastrointestinal and deep venous thrombosis prophylaxis. Continue bilevel positive airway pressure. Getting supplemental oxygen. Even the patient has oxygen at home. Out of bed, physical therapy. Repeat labs. We will follow up. Bernice Martinez MD
[2018-09-05] MEDS: Arformoterol 15 mcg/2 ml Inh Sol IH SCH ×2 (09:02→20:36)
[2018-09-05] MEDS: Budesonide 0.5 mg/2 ml Inhal Susp UD IH SCH ×2 (09:03→20:36)
[2018-09-05] MEDS: Albuterol-Ipratrop 3 mg / 0.5 (3 ml) UD IH PRN ×3 (09:03→16:52)
[2018-09-05] MEDS: Sildenafil 20 MG TAB PO SCH ×3 (10:05→17:22)
[2018-09-05] MEDS: MethylPREDNISolone 40 mg Vial IVP SCH ×2 (10:06→23:08)
[2018-09-05] MEDS: Cefepime IV 2 gm in NS 2 GM/100 ML BAG IVPB SCH ×2 (10:07→23:07)
--- NOTE | 2018-09-05 14:25 | PN ---
DATE: 09/05/2018 PULMONARY PROGRESS NOTE REFERRING PHYSICIAN: Bernice Martinez MD SUBJECTIVE: The patient is sitting at bedside, no acute distress. No overnight events reported. Reports using BiPAP last night. Reports having some shortness of breath with exertion. No coughing. No headache, rhinitis, chest pain, abdominal pain, nausea, vomiting, diarrhea, leg pain or leg swelling reported. The patient does report feeling better. OBJECTIVE: GENERAL: No acute distress. VITAL SIGNS: Blood pressure 86/47, pulse 84, temperature 98.7 and oxygen saturation 100% on BiPAP. HEENT: Moist mucous membranes. NECK: Supple. No JVD. Short and thick. CARDIOVASCULAR: S1 and S2 audible. LUNGS: Scattered rhonchi bilaterally. ABDOMEN: Soft, nontender. No distention. EXTREMITIES: No bilateral lower extremity edema. NEUROLOGIC: Awake, alert, verbal and follows command. MEDICATIONS: Reviewed. Tylenol 650 every 4 hours p.r.n, DuoNeb 3 mL inhalation every 2 hours p.r.n., Brovana 15 mcg every 12 hours, p.r.n., aspirin 81 mg daily, Lipitor 10 mg at dinner, Zithromax 500 mg daily, Pulmicort 0.5 mg inhalation every 12 hours, Coreg 3.125 mg twice a day, cefepime 2 g every 12 hours, vitamin B12 1000 mcg injection daily, ergocalciferol 50,000 units weekly, Pepcid 20 mg at bedtime, Lasix 20 mg daily, heparin 5000 units subcutaneously every 8 hours, lisinopril 2.5 mg daily, Solu-Medrol 20 mg every 12 hours, Singulair 10 mg at bedtime and sildenafil 20 mg three times a day. LABORATORY DATA: Reviewed. Blood cultures preliminary no growth after three days. IMPRESSION AND PLAN: Chronic obstructive lung disease exacerbation, hypoventilation syndrome, sleep apnea syndrome, pulmonary hypertension, cardiac diastolic dysfunction, morbid obesity, pneumonia. Continue antibiotic therapy, inhaled bronchodilators, steroids, gastric prophylaxis, deep venous thrombolus prophylaxis: We will discontinue Lasix due to hypotensive episode today. We will do orthostatic hypotension blood pressure every shift for the next 24 hours. We will order labs to be done in the morning. Continue bilevel positive airway pressure use at bedtime and as needed. Continue supplemental oxygen titrating pulse oximetry 90 or greater. The patient will benefit from physical therapy and out of bed to chair. Procalcitonin level received 2.73. This patient was seen and examined with Dr. Gonzáles. Discussed assessment and plan as described above. Thank you for this consult and we will follow with you. Hany Wilkes APN Oh Gonzáles MD
--- NOTE | 2018-09-06 01:43 | PN ---
DATE: 09/05/2018 SUBJECTIVE: The patient is a 73-year-old female. The patient was seen and examined at the bedside on 09/05/2018. Looking comfortable. No fever. No chills. No hematuria. No hematochezia. Cough is little bit better. Shortness of breath is little bit better. Feeling better. PHYSICAL EXAMINATION: VITAL SIGNS: Temperature 97.1, pulse 77, respiratory rate 18, and blood pressure 108/61. HEENT: Head; normocephalic and atraumatic. Eyes; PERRLA. Extraocular muscles are intact. Conjunctivae clear. Nose patent. Mucous membranes are moist. NECK: Supple. No carotid bruits, JVD, or thyromegaly. CHEST: Bilaterally symmetrical. HEART: S1 and S2 positive. LUNGS: Clear to auscultation. ABDOMEN: Soft. Bowel sounds present. No organomegaly. EXTREMITIES: No edema. No cyanosis. NEUROLOGIC: The patient is awake and alert. Moving all four extremities. No focal deficits. LABORATORY DATA: White blood cells 15.9, hemoglobin 10.3, hematocrit 36.6, and platelets 352. Sodium 140, potassium 4.7, BUN 27, creatinine 0.8, and glucose 116. MEDICATIONS: Brovana, Coreg, vitamin D, DuoNeb, Ecotrin, heparin, Lipitor, Maxipime, Pepcid, Pulmicort, Revatio, Singulair, Solu-Medrol, Tylenol, vitamin B12, Zestril, and Zithromax. ASSESSMENT AND PLAN: Ms. Maricel Woody is a 73-year-old lady with leukocytosis, anemia, increased BUN, hyperglycemia, iron deficiency, proteinuria, ketonuria, came with exacerbation of chronic obstructive pulmonary disease, history of chronic obstructive pulmonary disease, hyperventilation syndrome, sleep apnea syndrome, pulmonary hypertension, cardiac diastolic dysfunction, obesity, history of pneumonia, getting antibiotics, inhaled bronchodilators, tapering dose of steroid, and gastrointestinal and deep venous thrombosis prophylaxes. Continue present treatment, BiPAP, oxygen supplement, out of bed, physical therapy, and we will follow up. Bernice Martinez MD [facility] # [id number]
[2018-09-06 07:24] LABS: BASO # 0.02 K/mm3 (0.0-2.0); BASO % 0.2 % (0.0-3.0); HEMOGLOBIN 9.8 g/dL (12.0-16.0); LYMPH % 18.3 % (22.0-35.0); MEAN CELL VOLUME 98.6 fl (80.0-105.0); MEAN CORPUSCULAR HEMOGLOBIN 27.3 pg (25.0-35.0); MEAN CORPUSCULAR HGB CONC 27.7 g/dl (31.0-37.0); MEAN PLATELET VOLUME 9.9 fl (7.0-11.0); MONO # 0.4 (0.1-0.6); MONO % 3.9 % (1.0-6.0); RBC 3.59 10^6/uL (3.5-6.1)
[2018-09-06] MEDS: Arformoterol 15 mcg/2 ml Inh Sol IH SCH ×2 (07:26→21:05)
[2018-09-06] MEDS: Budesonide 0.5 mg/2 ml Inhal Susp UD IH SCH ×2 (07:26→21:05)
[2018-09-06 07:43] LABS: ALB/GLOB RATIO 0.9 (1.1-1.8); ALT/SGPT 43 U/L (7-56); AST/SGOT 45 U/L (14-36); BLOOD UREA NITROGEN 24 mg/dL (7-21); GFR NON-AFRICAN AMERICAN > 60
[2018-09-06] MEDS: MethylPREDNISolone 40 mg Vial IVP SCH ×2 (09:22→22:01)
[2018-09-06] MEDS: Sildenafil 20 MG TAB PO SCH ×2 (09:24→17:45)
[2018-09-06] MEDS: Cefepime IV 2 gm in NS 2 GM/100 ML BAG IVPB SCH ×2 (09:27→22:01)
[2018-09-06] MEDS: Albuterol-Ipratrop 3 mg / 0.5 (3 ml) UD IH PRN ×2 (10:50→17:31)
--- NOTE | 2018-09-06 11:18 | PN ---
DATE: 09/06/2018 PULMONARY PROGRESS NOTE REFERRING PHYSICIAN: Bernice Martinez MD SUBJECTIVE: The patient is sitting up at bedside, no acute distress. No overnight events reported. Denies coughing. The patient does have shortness of breath with exertion noted with hypotension, blood pressure 95/49, heart rate 70. Blood pressure rechecked by nurses and at this time 105/69, heart rate 75. The patient reports that she does some times gets lightheaded when first getting up in the morning. Orthostatic blood pressures reviewed lying 110/75, sitting 106/74, standing 108/71. OBJECTIVE: GENERAL: No acute distress. VITAL SIGNS: Blood pressure 105/69, pulse 75, temperature 98. HEENT: Moist mucous membranes. NECK: Supple. No JVD. Short and thick. CARDIOVASCULAR: S1 and S2 audible. LUNGS: Scattered rhonchi bilaterally. ABDOMEN: Soft, nontender. No distention. EXTREMITIES: Trace bilateral lower extremity edema. NEUROLOGIC: Awake, alert and verbal. Follows commands. MEDICATIONS: Reviewed. Tylenol 650 every 4 hours p.r.n., DuoNeb 3 mL inhalation every 2 hours p.r.n., Brovana 15 mcg every 12 hours, aspirin 81 mg daily, Lipitor 10 mg at dinner, Zithromax 500 mg daily, Pulmicort 0.5 mg every 12 hours, Coreg 3.125 mg twice a day, cefepime 2 g every 12 hours, vitamin B12 1000 mcg IM daily, ergocalciferol 50,000 units weekly, Pepcid 20 mg at bedtime, heparin 5000 units subcutaneously every 8 hours, lisinopril 2.5 mg daily, Solu-Medrol 20 mg every 12 hours, Singulair 10 mg at bedtime and sildenafil 20 mg three times a day. LABORATORY DATA: Reviewed. WBC 11.0, RBC 3.59, hemoglobin 9.8, hematocrit 35.4, and platelets 411. Sodium 141, potassium 4.9, chloride 99, carbon dioxide 44, anion gap 3, BUN 24, creatinine 0.8, GFR greater than 60, random glucose 109, calcium 9.0, total bilirubin 0.3. AST 45, ALT 43, alkaline phosphatase 85, total protein 6.4, albumin 3.0, globulin 3.3, albumin-globulin ratio 0.9. Blood cultures preliminary, no growth as of 3 days. IMPRESSION AND PLAN: Chronic obstructive lung disease exacerbation, hypoventilation syndrome, sleep apnea syndrome, pulmonary hypertension, cardiac diastolic dysfunction, morbid obesity, and pneumonia. Continue antibiotic therapy, inhaled bronchodilators, steroids, gastric prophylaxis, and deep venous thrombosis prophylaxis. We will decrease sildenafil from three times a day to twice a day due to the patient's low blood pressure, fall precautions. Continue BiPAP use at bedtime, sleep apnea precaution. Head of bed elevated to 45 degrees. The patient will benefit from physical therapy and out of bed to chair. This patient was seen and examined with Dr. Gonzáles. Discussed assessment and plan as described above. Thank you for this consult. We will follow with you. Hany Wilkes APN Oh Gonzáles MD [facility]
--- NOTE | 2018-09-06 19:00 | CON ---
DATE: 09/06/2018 CHIEF COMPLAINT: Evaluation for memory issues. HISTORY OF PRESENT ILLNESS: This is a 73-year-old woman with history of COPD, sleep apnea, pulmonary hypertension, obesity, hypertension and dyslipidemia, who came in for a COPD exacerbation, was called for memory problems. Her attention span is possibly mildly slow. She has some features of cognitive impairment. During her hospital stay, she was found to have iron deficiency anemia. She is following commands, moving all extremities. She is on aspirin and Lipitor for stroke prevention and B12 induction daily. She is on BiPAP at night. PAST MEDICAL HISTORY: See above. ALLERGIES: THE PATIENT IS ALLERGIC TO ISOSORBIDE, NITROGLYCERIN. FAMILY HISTORY: Noncontributory. SOCIAL HISTORY: No illicit drug use, smoking, or EtOH abuse. REVIEW OF SYSTEMS: A 14-point review of systems as per HPI. PHYSICAL EXAMINATION: GENERAL: Patient is sitting up in bed. No acute distress. VITAL SIGNS: Temperature 97.7, pulse 63, blood pressure 91/49, respiratory rate 18. HEENT: Head is normocephalic, atraumatic. PERRLA. Extraocular muscles are intact. NECK: Supple. No JVD. No adenopathy noted CARDIOPULMONARY: S1 and S2. Normal rate and rhythm. No murmurs, rubs, or gallops. LUNGS: Clear to auscultation. No adventitious sounds. ABDOMEN: Soft, nontender, nondistended. Bowel sounds are present. EXTREMITIES: No clubbing and no cyanosis. Peripheral pulses 2+ felt bilaterally. NEUROLOGIC: The patient is alert and oriented to person, place, and year. . Poor attention span. Slow thought process. Cannot do proverbs. Cannot spell the word world backwards. Recall after 5 minutes is 0/3. Cranial nerves II to XII intact. Motor exam, moves all extremities equally. Sensory; decreased light touch, pinprick, proprioception and decreased vibration to the toes. DTRs are 2+ throughout one on in both knees and ankles. Coordination is intact. No dysmetria noted. Gait is deferred for now. LABORATORY DATA: Sodium 141, potassium 4.9, chloride 99, carbon dioxide 44, BUN 24, creatinine 0.8, random glucose 109. IMPRESSION: This is a 73-year-old woman with history of chronic obstructive pulmonary disease, hypertension, dyslipidemia, sleep apnea syndrome came in for chronic obstructive pulmonary disease exacerbation, hypoglycemia, iron deficiency anemia, who has been treated, called for consult for memory issues. She has features of mild cognitive impairment from underlying general medical conditions with transient cerebral hypoperfusion low systolic blood pressures and diastolic blood pressures, which can make confuse as well as mild delirium. At this time, we are going to monitor electrolytes. 2. Attention and concentration exercise. 3. Continue with BiPAP for underlying chronic obstructive pulmonary disease and continue with underlying chronic obstructive pulmonary disease management and PT/OT evaluation. Thank you for this consult. Grayson Harrison MD
--- NOTE | 2018-09-07 | PN ---
DATE: 09/06/2018 SUBJECTIVE: The patient is a 73-year-old female. The patient was seen and examined at the bedside on 09/06/2018. Looking comfortable. No fevers. No chills. No hematuria or hematochezia. No headache. No dizziness. No chest pain. No palpitations. Cough is better. Shortness of breath is better. PHYSICAL EXAMINATION: VITAL SIGNS: Blood pressure 110/70, pulse 70, and temperature 98.1. HEENT: Head; normocephalic and atraumatic. Eyes; PERRLA. Extraocular muscles are intact. Conjunctivae clear. Nose patent. Mucous membranes moist. NECK: Supple. No carotid bruit. No JVD or thyromegaly. CHEST: Bilaterally symmetrical. HEART: S1 and S2 positive. LUNGS: Clear to auscultation. ABDOMEN: Soft. Bowel sounds present. No organomegaly. EXTREMITIES: Trace edema of both lower extremities. NEUROLOGIC: The patient is awake and alert. Follows simple commands. MEDICATIONS: Tylenol, DuoNeb, Brovana, aspirin, Lipitor, Zithromax, Pulmicort, Coreg, cefepime, vitamin B12, vitamin D, Pepcid, lisinopril, Solu-Medrol, Singulair, and sildenafil. LABORATORY DATA: White blood cell 11, hemoglobin 9.8, and hematocrit 35.4. Sodium 141, potassium 4.9, BUN 24, and creatinine 0.8. Blood culture preliminary, no growth as for 3 days. ASSESSMENT: Ms. Maricel Woody is a 73-year-old lady with chronic obstructive lung disease, came with exacerbation of chronic obstructive lung disease, hypoventilation syndrome, anemia, morbid obesity, sleep apnea syndrome, pulmonary hypertension, cardiac diastolic dysfunction, and history of pneumonia. PLAN: Continue antibiotics. Inhaled bronchodilators. Gastric and deep venous thrombosis prophylaxis. The patient is deconditioned. Dr. Gonzáles decreased sildenafil from 3 times a day to twice a day due to the patient's low blood pressure. Continue BiPAP. This is the patient's third admission. She is living alone. She cannot do her ADLs. Length of time discussion done with the patient's family and patient's niece. She is the only relative in this area for this patient. Plan is to take the patient for little bit long rehab. According to niece, [facility] is nearby to the patient's home and they prefer [facility], we will try to put the patient in [facility]. Bernice Martinez MD
[2018-09-07] MEDS: Albuterol-Ipratrop 3 mg / 0.5 (3 ml) UD IH PRN ×4 (05:17→20:07)
[2018-09-07 05:57] VITALS: O2SAT 93
[2018-09-07] MEDS: Budesonide 0.5 mg/2 ml Inhal Susp UD IH SCH (07:09)
[2018-09-07] MEDS: Arformoterol 15 mcg/2 ml Inh Sol IH SCH (07:09)
[2018-09-07] MEDS: MethylPREDNISolone 40 mg Vial IVP SCH (10:12)
[2018-09-07] MEDS: Cefepime IV 2 gm in NS 2 GM/100 ML BAG IVPB SCH (10:12)
[2018-09-07] MEDS: Sildenafil 20 MG TAB PO SCH ×2 (10:15→18:57)
--- NOTE | 2018-09-07 14:01 | PN ---
DATE: 09/07/2018 PULMONARY PROGRESS NOTE REFERRING PHYSICIAN: Bernice Martinez MD. SUBJECTIVE: The patient is lying in bed. Head of bed elevated. Receiving nebulizer treatment. The patient reports that she was having an episode of shortness of breath today, but is feeling better as she is receiving nebulizer treatment. Denies coughing, headache, shortness of breath, chest pain, abdominal pain, nausea, vomiting, diarrhea, leg pain or leg swelling. PHYSICAL EXAMINATION GENERAL: No acute distress. VITAL SIGNS: Blood pressure 108/65, pulse 76, temperature 98.5, and oxygen saturation 93% on nasal cannula. HEENT: Moist mucus membranes. NECK: Supple. No JVD. Short and thick. CARDIOVASCULAR: S1 and S2 audible. LUNGS: Scattered rhonchi bilaterally. ABDOMEN: Soft and nontender. No distension. EXTREMITIES: +1 bilateral lower extremity edema. NEUROLOGIC: Awake, alert, verbal and follows commands. MEDICATIONS: Reviewed. Tylenol 650 every 4 hours p.r.n. for pain and fever, DuoNeb 3 mL inhalation every 2 hours p.r.n., Brovana 15 mcg every 12 hours, aspirin 81 mg daily, Lipitor 10 mg at dinner, Zithromax 500 mg daily, Pulmicort 0.5 mg inhalation every 12 hours, Coreg 3.125 mg twice a day, cefepime 2 grams every 12 hours, vitamin B12 1000 mcg IM daily, ergocalciferol 50,000 units weekly, Pepcid 20 mg at bedtime, heparin 5000 units subcutaneously every 8 hours, lisinopril 2.5 mg p.o. daily, Solu-Medrol 20 mg every 12 hours, Singulair 10 mg at bedtime and sildenafil 20 mg twice a day. LABORATORY DATA: Reviewed. No new labs since yesterday. IMPRESSION AND PLAN: Chronic obstructive lung disease exacerbation, hypoventilation syndrome, pneumonia, sleep apnea syndrome, pulmonary hypertension, cardiac diastolic dysfunction, and morbid obesity. We will continue antibiotic therapy, inhaled bronchodilators, steroids, gastric prophylaxis, and deep venous thrombosis prophylaxis. We will add Diamox 125 mg twice a day. We will order procalcitonin and chest x-ray to be done in the morning. Continue bilevel positive airway pressure use at bedtime, sleep apnea precaution, and head of bed elevated at 45 degrees. The patient will benefit from physical therapy and out of bed to chair. We will order for labs to be drawn in the morning. This patient was seen and examined with Dr. Gonzáles. Discussed assessment and plan as described above. Thank you for this consult and we will follow with you. Hany Wilkes APN Oh Gonzáles MD
[2018-09-07 18:00] VITALS: RESP 18; TEMP 98.2
[2018-09-07 18:59] VITALS: BP 110/65; PULSE 84
[2018-09-09] MEDS ORDERED: Ergocalciferol 50,000 Intl Units Cap PO SCH (10:00)
--- NOTE | 2018-09-09 18:09 | PQF ---
PROVIDER RESPONSE TEXT: Acute on chronic respiratory failure REVIEWER QUERY TEXT: Respiratory Failure Acuity and Type Respiratory Failure is documented in the Medical Record. Please specify the type and acuity (includes suspected or probable) Such as: -- Acute respiratory failure - With hypoxia - With hypercapnia -- Chronic respiratory failure - With hypoxia - With hypercapnia -- Acute on chronic respiratory failure - With hypoxia - With hypercapnia -- Other, please specify The patient's Clinical Indicators include: Please see query. Thank you. Query created by: Hetal Ba on 09/08/2018 2:09 PM Electronically signed by: Oh Gonzáles MD 09/09/2018 6:06 PM
== END 2018-09-07 21:50 | DRG 190 ==
LOC: ED 10:44 → ERH 12:37 → 2RNO 14:45
PROVIDERS: ADMIT Internal Medicine; ATTEND Internal Medicine
PROC: 5A09457 Assistance with Respiratory Ventilation, 24-96 Consecutive Hours, Continuous Positive Airway Pressure (ICD-10-PCS; principal; 2018-09-02)
DX: J44.0 Chronic obstructive pulmonary disease with (acute) lower respiratory infection (principal); J18.9 Pneumonia, unspecified organism; J96.21 Acute and chronic respiratory failure with hypoxia; E87.2 Acidosis; J44.1 Chronic obstructive pulmonary disease with (acute) exacerbation; D50.9 Iron deficiency anemia, unspecified; E66.01 Morbid (severe) obesity due to excess calories; Z68.36 Body mass index [BMI] 36.0-36.9, adult; E78.00 Pure hypercholesterolemia, unspecified; E78.5 Hyperlipidemia, unspecified; G31.84 Mild cognitive impairment of uncertain or unknown etiology; G47.30 Sleep apnea, unspecified; H91.90 Unspecified hearing loss, unspecified ear; I11.0 Hypertensive heart disease with heart failure; I27.20 Pulmonary hypertension, unspecified; I50.9 Heart failure, unspecified; Z79.82 Long term (current) use of aspirin; Z79.899 Other long term (current) drug therapy; Z87.01 Personal history of pneumonia (recurrent); Z87.891 Personal history of nicotine dependence; Z90.710 Acquired absence of both cervix and uterus; Z99.81 Dependence on supplemental oxygen; Z88.8 Allergy status to other drugs, medicaments and biological substances

== ENCOUNTER 2018-09-07 21:51 | Inpatient (IN) | payer MEDICARE ==
[2018-09-07] MEDS: Cefepime IV 2 gm in NS 2 GM/100 ML BAG IVPB SCH (23:40)
[2018-09-07] MEDS: MethylPREDNISolone 40 mg Vial IVP SCH (23:40)
[2018-09-08 02:36] VITALS: BMI 36.8
[2018-09-08 06:50] LABS: BASO # 0.05 K/mm3 (0.0-2.0); BASO % 0.3 % (0.0-3.0); HEMOGLOBIN 11.2 g/dL (12.0-16.0); LYMPH # 2.8 (1.2-3.4); LYMPH % 18.2 % (22.0-35.0); MEAN CELL VOLUME 100.5 fl (80.0-105.0); MEAN CORPUSCULAR HEMOGLOBIN 28.8 pg (25.0-35.0); MEAN CORPUSCULAR HGB CONC 28.6 g/dl (31.0-37.0); MEAN PLATELET VOLUME 9.8 fl (7.0-11.0); MONO # 0.9 (0.1-0.6); RBC 3.89 10^6/uL (3.5-6.1); RED CELL DISTRIBUTION WIDTH 15.9 % (11.5-14.5); WHITE BLOOD COUNT 15.4 10^3/uL (4.5-11.0)
[2018-09-08 07:27] LABS: ALBUMIN 3.2 g/dL (3.0-4.8); ALT/SGPT 42 U/L (7-56); AST/SGOT 42 U/L (14-36); BLOOD UREA NITROGEN 18 mg/dL (7-21); CALCIUM 9.5 mg/dL (8.4-10.5); GFR NON-AFRICAN AMERICAN 54
[2018-09-08] MEDS: Arformoterol 15 mcg/2 ml Inh Sol IH SCH ×2 (07:36→20:11)
[2018-09-08] MEDS: Budesonide 0.5 mg/2 ml Inhal Susp UD IH SCH ×2 (07:36→20:11)
[2018-09-08] MEDS: Sildenafil 20 MG TAB PO SCH ×2 (11:00→17:26)
[2018-09-08] MEDS: MethylPREDNISolone 40 mg Vial IVP SCH ×2 (11:00→21:15)
[2018-09-08] MEDS: Cefepime IV 2 gm in NS 2 GM/100 ML BAG IVPB SCH ×2 (11:23→21:14)
--- NOTE | 2018-09-08 11:26 | RAD ---
Date of service: 09/08/2018 HISTORY: follow up COMPARISON: 09/02/2018 TECHNIQUE: Chest PA and lateral FINDINGS: LUNGS: No infiltrate. Previously identified right basilar infiltrate has resolved. PLEURA: No significant pleural effusion identified. No pneumothorax apparent. CARDIOVASCULAR: No aortic atherosclerotic calcification present. Normal cardiac size. No congestive change. Prominence of the right and left pulmonary arteries may reflect pulmonary arterial hypertension. OSSEOUS STRUCTURES: No significant abnormalities. VISUALIZED UPPER ABDOMEN: Normal. OTHER FINDINGS: None. IMPRESSION: No active disease.
[2018-09-08] MEDS: Albuterol-Ipratrop 3 mg / 0.5 (3 ml) UD IH PRN (11:54)
--- NOTE | 2018-09-08 11:59 | CON ---
DATE: 09/08/2018 PULMONARY CONSULT NOTE REFERRING PHYSICIAN: Bernice Martinez MD REASON FOR CONSULTATION: Pneumonia and respiratory failure. HISTORY OF PRESENT ILLNESS: This is a 73-year-old female with past medical history significant for chronic obstructive lung disease, hypoventilation syndrome, diastolic cardiac dysfunction, pulmonary hypertension, morbid obesity, who was treated in the acute care side of the hospital for pneumonia and respiratory failure. Patient was placed on noninvasive ventilation and antibiotic therapy was given. At this time, the patient is in [facility] for physical therapy and rehabilitation. PAST MEDICAL HISTORY: As per history of present illness. FAMILY HISTORY: No significant cardiopulmonary disease reported. SOCIAL HISTORY: Former smoker. No EtOH abuse. No illicit drug use. ALLERGIES: ISOSORBIDE AND NITROGLYCERIN. MEDICATIONS: Reviewed. Tylenol 650 mg every 4 hours p.r.n. for fever and pain, Diamox 250 mg twice a day, DuoNeb 3 mL inhalation every 2 hours p.r.n., Brovana 15 mcg every 12 hours, aspirin 81 mg daily, Lipitor 10 mg at dinner, Zithromax 500 mg daily, Pulmicort 0.5 mg every 12 hours, Coreg 3.125 mg twice a day, cefepime 2 g every 12 hours, vitamin B12 1000 mcg IM daily, ergocalciferol 50,000 units weekly, Pepcid 20 mg at bedtime, heparin 5000 units subcutaneous every 8 hours, lisinopril 2.5 mg p.o. daily, Solu-Medrol 20 mg IV push every 12 hours, Singulair 10 mg at bedtime and Revatio 20 mg twice a day. REVIEW OF SYSTEMS: No headache, rhinitis, cough, chest pain, abdominal pain, nausea, vomiting, diarrhea, leg pain or leg swelling reported. The patient does report having shortness of breath on exertion. PHYSICAL EXAMINATION GENERAL: No acute distress. VITAL SIGNS: Blood pressure from 09/07/2018 is 98/68, pulse 63 and temperature 98.6. HEENT: Moist mucus membranes. NECK: Short thick neck. LUNGS: Scattered rhonchi bilaterally. CARDIOVASCULAR: S1, S2 audible. ABDOMEN: Soft and nontender. No distention. No organomegaly. EXTREMITIES: No bilateral lower extremity edema. NEUROLOGIC: Awake, alert, verbal. Follows commands. LABORATORY DATA: Reviewed. WBC 15.4, RBC 3.89, hemoglobin 11.2, hematocrit 39.1, and platelets 438. Sodium 143, potassium 5.3, chloride 98, carbon dioxide 45, anion gap 5, BUN 18, creatinine 1.0, GFR greater than 60, random glucose 106, calcium 9.5, total bilirubin 0.4, AST 42, ALT 42, alkaline phosphatase 86, total protein 6.6, albumin 3.2, globulin 3.4 and albumin globulin ratio 1.0. Chest x-ray report pending. IMPRESSION AND PLAN: Chronic obstructive lung disease exacerbation, hypoventilation syndrome, pneumonia, sleep apnea syndrome, pulmonary hypertension, cardiac diastolic dysfunction, morbid obesity, continue antibiotic therapy, inhaled bronchodilators, gastric prophylaxis, deep venous thrombosis prophylaxis, continue steroids, procalcitonin pending, chest x-ray report pending. Continue bilevel positive airway pressure use at bedtime, sleep apnea precaution, head of bed elevated at 45 degrees. We will order thigh high thromboembolic disease stockings to bilateral lower extremities. Continue physical therapy. We will order labs for the morning. This patient was seen and examined with Dr. Gonzáles. Discussed assessment and plan as described above. Thank you for this consult. We will follow with you. Hany Wilkes APN Oh Gonzáles MD
[2018-09-09] MEDS: Cefepime IV 2 gm in NS 2 GM/100 ML BAG IVPB SCH ×2 (06:06→17:08)
[2018-09-09 07:05] LABS: BASO # 0.04 K/mm3 (0.0-2.0); BASO % 0.3 % (0.0-3.0); HEMOGLOBIN 10.8 g/dL (12.0-16.0); LYMPH # 2.3 (1.2-3.4); LYMPH % 15.2 % (22.0-35.0); MEAN CELL VOLUME 100.5 fl (80.0-105.0); MEAN CORPUSCULAR HEMOGLOBIN 26.9 pg (25.0-35.0); MEAN CORPUSCULAR HGB CONC 26.8 g/dl (31.0-37.0); MEAN PLATELET VOLUME 9.9 fl (7.0-11.0); MONO # 0.7 (0.1-0.6); MONO % 4.7 % (1.0-6.0); PLATELET COUNT 426 10^3/uL (120.0-450.0); RBC 4.01 10^6/uL (3.5-6.1); RED CELL DISTRIBUTION WIDTH 15.7 % (11.5-14.5); WHITE BLOOD COUNT 14.8 10^3/uL (4.5-11.0)
[2018-09-09] MEDS: MethylPREDNISolone 40 mg Vial IVP SCH ×3 (07:43→17:10)
[2018-09-09 07:49] LABS: ALB/GLOB RATIO 0.9 (1.1-1.8); ALBUMIN 3.2 g/dL (3.0-4.8); ALT/SGPT 29 U/L (7-56); AST/SGOT 39 U/L (14-36); BLOOD UREA NITROGEN 19 mg/dL (7-21); CALCIUM 9.8 mg/dL (8.4-10.5); GFR NON-AFRICAN AMERICAN > 60
--- NOTE | 2018-09-09 07:58 | HP ---
DATE OF EXAM: 09/08/2018 The patient was seen and examined at the bedside on 09/08/2018. CHIEF COMPLAINT: Fatigue, tired, shortness of breath, and need IV antibiotics. HISTORY OF PRESENT ILLNESS: Ms. Bong Connelly is a 73-year-old female with past medical history of chronic obstructive pulmonary disease, hypoventilation syndrome, diastolic cardiac dysfunction, pulmonary hypertension, morbid obesity and was treated in the acute care side of the hospital for pneumonia and respiratory failure. The patient was placed on noninvasive ventilation and antibiotic therapy and steroid, the patient improved. Now, we transferred the patient to TCU for completing antibiotics, steroid, and physical therapy for deconditioning. PAST MEDICAL HISTORY: As above. History of COPD, obesity, hypoventilation syndrome, diastolic dysfunction, and pulmonary hypertension. FAMILY HISTORY: Father and mother, noncontributory. SOCIAL HISTORY: Former smoker. No ethanol and no illicit drug use. ALLERGIES: THE PATIENT IS ALLERGIC WITH ISOSORBIDE AND NITROGLYCERIN. REVIEW OF SYSTEMS: The patient was seen and examined at the bedside, looking comfortable. Still coughing with shortness of breath bilaterally getting better. No fever. No chills. No nausea, vomiting, or diarrhea. No headache. No dizziness. No hematuria. No hematochezia. PHYSICAL EXAMINATION: VITAL SIGNS: Blood pressure 100/60, pulse 60, respiratory rate 18, and temperature 98.6. HEENT: Head; normocephalic and atraumatic. Eyes; PERRLA. Extraocular muscles are intact. Conjunctivae clear. Nose patent. Mucous membranes moist. NECK: Supple. No carotid bruits. No JVD or thyromegaly. CHEST: Bilaterally symmetrical. HEART: S1 and S2 positive. LUNGS: Clear to auscultation. ABDOMEN: Soft and nontender. No organomegaly. EXTREMITIES: No edema. No cyanosis. NEUROLOGIC: The patient is awake and alert. Follows simple commands. LABORATORY DATA: White blood cells 15.4, hemoglobin 11.2, hematocrit 39.1, and platelets 438. Sodium 143, potassium 5.6, BUN 18, creatinine 1, and random glucose 106. AST 42 and ALT 42. Chest x-ray was done reviewed by me. ASSESSMENT AND PLAN: Ms. Bong Connelly is a 73-year-old female with history of chronic obstructive pulmonary disease, hypoventilation syndrome, diastolic cardiac dysfunction, pulmonary hypertension, morbid obesity, has multiple admissions, came with exacerbation of chronic obstructive lung disease Bernice Martinez MD MTDKathy
[2018-09-09 08:23] LABS: LYMPHOCYTE 23 % (22.0-35.0); METAMYELOCYTE 3 %; MONOCYTE 5 % (1.0-6.0); NEUTROPHIL 69 % (50.0-70.0); NUCLEATED RED BLOOD CELL 1 %
[2018-09-09 08:24] LABS: LARGE PLATELETS PRESENT; PLATELET ESTIMATE HIGH (NORMAL)
[2018-09-09] MEDS: Arformoterol 15 mcg/2 ml Inh Sol IH SCH ×2 (08:45→20:10)
[2018-09-09] MEDS: Budesonide 0.5 mg/2 ml Inhal Susp UD IH SCH ×2 (08:45→20:10)
[2018-09-09] MEDS: Sildenafil 20 MG TAB PO SCH ×2 (09:54→17:09)
[2018-09-09] MEDS ORDERED: Ergocalciferol 50,000 Intl Units Cap PO SCH (10:00)
[2018-09-09] MEDS: Albuterol-Ipratrop 3 mg / 0.5 (3 ml) UD IH PRN ×2 (10:46→15:29)
--- NOTE | 2018-09-09 11:41 | PN ---
DATE: 09/09/2018 PULMONARY PROGRESS NOTE REFERRING PHYSICIAN: Bernice Martinez MD SUBJECTIVE: The patient is lying in bed. No acute distress. No overnight events reported. The patient reports not using BiPAP machine last night. No headache, rhinitis, cough, chest pain, abdominal pain, nausea, vomiting, diarrhea, leg pain, or leg swelling reported. The patient reports shortness of breath with exertion. OBJECTIVE: GENERAL: No acute distress. VITAL SIGNS: Blood pressure 106/64, pulse 64, temperature 98.2, and oxygen saturation 99%. HEENT: Moist mucus membranes. NECK: Short, thick, and supple. No JVD. LUNGS: Clear bilaterally. CARDIOVASCULAR: S1, S2 audible. ABDOMEN: Soft and nontender. No distention. No organomegaly. EXTREMITIES: No bilateral lower extremity edema. NEUROLOGIC: Awake, alert, and verbal. Follows commands. MEDICATIONS: Reviewed. Tylenol 650 mg every 4 hours p.r.n., Diamox 250 mg twice a day, DuoNeb 3 mL inhalation every 2 hours p.r.n., Brovana 15 mcg every 12 hours, aspirin 81 mg daily, Lipitor 10 mg at dinner, Zithromax 500 mg daily, Pulmicort 0.5 mg every 12 hours, Coreg 3.125 mg twice a day, cefepime 2 g twice a day, vitamin B12 1000 mcg daily, ergocalciferol 50,000 units weekly, Pepcid 20 mg at bedtime, heparin 5000 units subcutaneous every 8 hours, lisinopril 2.5 mg daily, Solu-Medrol 20 mg IV push every 12 hours, Singulair 10 mg at bedtime, and sildenafil 20 mg twice a day. LABORATORY DATA: Reviewed. WBC 14.8, RBC 4.01, hemoglobin 10.8, hematocrit 40.3, and platelets 426. Sodium 142, potassium 5.7, chloride 98, carbon dioxide 47, anion gap 3, BUN 19, creatinine 0.9, GFR is greater than 60, random glucose 114, calcium 9.8, total bilirubin 0.3, AST 39, ALT 29, alkaline phosphatase 86, total protein 6.7, albumin 3.2, globulin 3.5, albumin-globulin ratio 0.9, and procalcitonin 0.15. Chest x-ray showed no active disease. IMPRESSION AND PLAN: Chronic obstructive lung disease exacerbation, hypoventilation syndrome, pneumonia, sleep apnea syndrome, pulmonary hypertension, cardiac diastolic dysfunction, morbid obesity, and hyperkalemia. We will order Kayexalate 30 grams one dose to be given today for hyperkalemia. Repeat CBC and BNP in the morning. Continue antibiotic therapy, inhaled bronchodilators, gastric prophylaxis, and deep venous thrombosis prophylaxis. Encourage the patient to use bilevel positive airway pressure at bedtime. The patient reports that she will try to use bilevel positive airway pressure tonight. Sleep apnea precaution; head of bed elevated at 45 degrees. Continue ALLYSON stockings to bilateral lower extremities. Continue physical therapy. This patient was seen and examined with Dr. Gonzáles. Discussed assessment and plan as described above. Thank you for this consult. We will follow with you. Hany Wilkes APN Oh Gonzáles MD [facility]
--- NOTE | 2018-09-10 02:50 | PN ---
DATE: 09/09/2018 SUBJECTIVE: The patient is a 73-year-old female. The patient is seen and examined at the bedside on 09/09/2018, looking comfortable. No fever. No chills. No hematuria. No hematochezia. No swelling of the legs. No chest pain. No palpitations. No headache or dizziness. Cough and shortness of breath little better. PHYSICAL EXAMINATION: VITAL SIGNS: Blood pressure 110/60, pulse is 60, temperature 98.2, oxygen saturation 99%. HEENT: Head normocephalic, atraumatic. Eyes, PERRLA. Extraocular muscles intact. Conjunctivae clear. Nose patent. Mucous membranes moist. NECK: Supple. No carotid bruits. No JVD or thyromegaly. CHEST: Bilateral symmetrical. HEART: S1 and S2 positive. LUNGS: Clear bilaterally. ABDOMEN: Soft. Positive bowel sounds. No organomegaly. EXTREMITIES: No edema. No cyanosis. NEUROLOGIC: The patient is awake, alert. Moving all four extremities. Follow simple commands. MEDICATIONS: Tylenol, Diamox, DuoNeb, Brovana, aspirin, Lipitor, Zithromax, Pulmicort, Coreg, cefepime, Vitamin B12, Vitamin D, Pepcid, heparin, lisinopril, Solu-Medrol, Singulair, sildenafil. LABORATORY DATA: White blood cells 14.8, hemoglobin 10.8, hematocrit 40.3, platelets 426. Sodium 142, potassium 5.7, BUN 90, creatinine 0.9, glucose 114, AST 39, ALT 29. ASSESSMENT AND PLAN: Ms. Maricel Woody is a 73-year-old lady with multiple medical problems, chronic obstructive lung disease exacerbation, hypoventilation syndrome, pneumonia, sleep apnea syndrome, pulmonary hypertension, cardiac diastolic dysfunction, morbid obesity, hyperkalemia, got Kayexalate. We will repeat potassium level. Continue antibiotics and bronchodilator. As patient is not able to provide any history . Patient's family is in other state and they agree to take patient with them. Now trying to convince patient to go with the family in [place]. Meanwhile, continue present treatment. Repeat labs. We will follow up. Bernice Martinez MD MTDD
[2018-09-10] MEDS: Cefepime IV 2 gm in NS 2 GM/100 ML BAG IVPB SCH ×2 (05:56→17:44)
[2018-09-10] MEDS: MethylPREDNISolone 40 mg Vial IVP SCH ×2 (05:57→17:47)
[2018-09-10 08:05] LABS: BASO # 0.02 K/mm3 (0.0-2.0); BASO % 0.1 % (0.0-3.0); LYMPH # 2.6 (1.2-3.4); LYMPH % 15.8 % (22.0-35.0); MEAN CELL VOLUME 98.8 fl (80.0-105.0); MEAN CORPUSCULAR HGB CONC 27.4 g/dl (31.0-37.0); MEAN PLATELET VOLUME 10.2 fl (7.0-11.0); MONO # 1.1 (0.1-0.6); MONO % 6.5 % (1.0-6.0); RBC 4.07 10^6/uL (3.5-6.1); RED CELL DISTRIBUTION WIDTH 15.8 % (11.5-14.5); WHITE BLOOD COUNT 16.2 10^3/uL (4.5-11.0)
[2018-09-10 08:40] LABS: BLOOD UREA NITROGEN 22 mg/dL (7-21); GFR NON-AFRICAN AMERICAN 54
[2018-09-10] MEDS: Sildenafil 20 MG TAB PO SCH ×2 (09:48→17:47)
[2018-09-10] MEDS: Budesonide 0.5 mg/2 ml Inhal Susp UD IH SCH ×2 (10:09→19:16)
[2018-09-10] MEDS: Arformoterol 15 mcg/2 ml Inh Sol IH SCH ×2 (10:09→19:16)
--- NOTE | 2018-09-10 21:06 | PN ---
DATE: 09/10/2018 PULMONARY PROGRESS NOTE REFERRING PHYSICIAN: Bernice Martinez MD SUBJECTIVE: The patient is lying in the bed, head at 45 degrees, and used CPAP last night. Decreased cough and shortness of breath. No nausea. No vomiting, diarrhea, leg pain, or leg swelling. OBJECTIVE: GENERAL: In no acute distress. VITAL SIGNS: Temperature is 98, heart rate is 70, respiratory rate is 22, blood pressure is 102/60, and pulse ox 95% on 3 L nasal cannula. HEENT: Moist mucous membrane. Crowded airway. Mallampati score is 4. NECK: Supple. No JVD. LUNGS: Has a scattered rhonchi. HEART: S1 and S2. ABDOMEN: Soft and nontender. No organomegaly. EXTREMITIES: Not much edema. NEUROLOGIC: Awake, alert, and follows simple commands. MEDICATIONS: She is on Brovana inhaled twice a day, Coreg 3.125 mg twice a day, Diamox 250 mg twice a day, vitamin D 1 capsule weekly, DuoNeb every 2 hours p.r.n., Ecotrin 81 mg daily, heparin 5000 units subcutaneously every 8 hours, Lipitor 10 mg daily, cefepime 2 g IV every 12 hours, Pepcid 20 mg at bedtime, Pulmicort inhaled twice a day, sildenafil 20 mg twice a day, Singulair 10 mg daily, Solu-Medrol 20 mg twice a day, Tylenol p.r.n., and vitamin B12 1000 mcg daily. LABORATORY DATA: Shows hemoglobin 11, hematocrit 40.2, WBC 16.2, and platelet is 389. Sodium 141, potassium 4.6, chloride 98, bicarbonate 42, BUN 22, creatinine 1, glucose 86, and calcium is 10. IMPRESSION AND PLAN: Chronic obstructive lung disease with exacerbation, hypoventilation syndrome, pneumonia, sleep apnea syndrome, pulmonary hypertension, cardiac diastolic dysfunction, morbid obesity, and hyperkalemia. Pulmonary point of view, encourage continuous positive airway pressure use. Keep head at 45 degrees. IV and inhaled bronchodilator. Continue Diamox, orthostatic hypotension precaution, and fall precaution. Thank you and we will follow with you. Oh Gonzáles MD [facility] # [id number]
--- NOTE | 2018-09-11 02:41 | PN ---
DATE: 09/10/2018 SUBJECTIVE: The patient is a 73-year-old female. The patient is seen and examined at the bedside on 09/10/2018, looking comfortable. No coughing. No shortness of breath. No nausea or vomiting. No hematuria or hematochezia. No swelling of the legs. No chest pain. No palpitations. Granddaughter was sitting on the bedside. All questions answered. PHYSICAL EXAMINATION: VITAL SIGNS: Temperature 98, heart rate 70, respiratory 22, blood pressure 110/50, pulse oximetry 96% on 3 liter nasal cannula. HEENT: Head; normocephalic, atraumatic. Eyes; PERRLA. Extraocular muscles intact. Conjunctivae clear. Nose patent. Mucous membranes moist. NECK: Supple. No carotid bruits. No JVD or thyromegaly. CHEST: Bilateral symmetrical. HEART: S1 and S2 positive. LUNGS: Clear to auscultation. ABDOMEN: Soft. Nontender. No organomegaly. EXTREMITIES: No edema. No cyanosis. NEUROLOGIC: The patient is awake and alert. Follow simple commands. MEDICATIONS: Brovana, Coreg, Diamox, vitamin D1, Ecotrin, heparin, Lipitor, cefepime, Pepcid, Pulmicort, sildenafil, Solu-Medrol, Tylenol, and B12. LABORATORY DATA: Hemoglobin 11, hematocrit 40.2, white blood cells 16.2, and platelets 389. Sodium 141, potassium 4.6, BUN 22, creatinine 1, and glucose 86. ASSESSMENT AND PLAN: Ms. Maricel Woody is a 73-year-old female with chronic obstructive lung disease with exacerbation, hypoventilation syndrome, pneumonia, sleep apnea syndrome, pulmonary hypertension, cardiac diastolic dysfunction, morbid obesity, hyperkalemia, decondition, getting physical therapy. Pulmonary is on the case. Family was around, length of time discussion done, all questions answered. Continue Diamox. Gastrointestinal and deep venous thrombosis prophylaxis. Repeat labs. We will follow up. Bernice Martinez MD [facility]
[2018-09-11] MEDS: Cefepime IV 2 gm in NS 2 GM/100 ML BAG IVPB SCH ×2 (05:11→17:27)
[2018-09-11] MEDS: MethylPREDNISolone 40 mg Vial IVP SCH ×2 (05:12→17:28)
[2018-09-11] MEDS: Budesonide 0.5 mg/2 ml Inhal Susp UD IH SCH ×2 (07:21→21:04)
[2018-09-11] MEDS: Arformoterol 15 mcg/2 ml Inh Sol IH SCH ×2 (07:21→21:05)
[2018-09-11] MEDS: Sildenafil 20 MG TAB PO SCH ×2 (10:27→17:28)
[2018-09-11] MEDS: Albuterol-Ipratrop 3 mg / 0.5 (3 ml) UD IH PRN (13:48)
--- NOTE | 2018-09-11 18:50 | PN ---
DATE: 09/11/2018 PULMONARY PROGRESS NOTE REFERRING PHYSICIAN: Dr. Martinez. SUBJECTIVE: She is lying in the bed at 45 degrees. Last time refused using CPAP and BiPAP. No nausea, vomiting, diarrhea. No leg pain. No leg swelling. PHYSICAL EXAMINATION: VITAL SIGNS: Temperature is 98, heart rate 65, respiratory rate is 22, blood pressure 98/50, pulse ox 95% nasal cannula. HEENT: Moist mucous membrane. Crowded airway. Mallampati score is 4. NECK: Supple. No JVD. HEART: S1, S2. LUNGS: Have a fair airflow with rhonchi. ABDOMEN: Soft, nontender. No organomegaly. EXTREMITIES: Not much edema. NEUROLOGIC: Awake, awake and follows simple command. MEDICATIONS: She is on Brovana inhaled twice a day, Coreg 3.125 mg twice a day, Demadex 250 mg twice a day, vitamin D 50,000 units weekly, DuoNeb every 12 hours. p.r.n., Ecotrin 81 mg daily, heparin 5000 units subcutaneously every 8 hours, Lipitor 10 mg daily, cefepime 2 g IV every 12 hours, Pepcid 20 mg daily, Pulmicort inhaled twice a day, Revatio 20 mg twice a day, Singulair 10 mg daily, Solu-Medrol 20 mg, Tylenol p.r.n., vitamin B12 1000 mcg IM daily, also on Zestril 2.5 mg daily, Zithromax 5 mg daily. LABORATORY DATA: Shows no new lab is available since yesterday. IMPRESSION AND PLAN: Chronic obstructive lung disease with exacerbation, hypoventilation syndrome, pneumonia, sleep apnea syndrome, pulmonary hypertension, cardiac diastolic dysfunction, morbid obesity, electrolyte imbalance. Pulmonary point view, doing okay. Spoke to nursing staff. Encourage the patient to use CPAP. Sleep apnea consequences discussed especially in her case with pulmonary hypertension. She expressed understanding and will try. We will continue IV and a bronchodilator. Continue diuretics. Fall precaution. Follow up labs in the morning. Thank you and we will follow with you. Oh Gonzáles MD
--- NOTE | 2018-09-12 02:25 | PN ---
DATE: 09/11/2018 SUBJECTIVE: The patient is a 73-year-old female. The patient was seen and examined at the bedside on 09/11/2018, looking comfortable. NieceAfua was sitting on the bedside also. No fever. No chills. No hematuria. No hematochezia. No welling of the legs. No chest pain. No palpitations. No headache or dizziness. Shortness of breath is better. PHYSICAL EXAMINATION VITAL SIGNS: Temperature 98, heart rate 65, respiratory rate 22, blood pressure 100/50, pulse oximetry 95% on nasal cannula. HEENT: Head; normocephalic, atraumatic. Eyes; PERRLA. Extraocular muscles intact. Conjunctivae clear. Nose patent. Mucous membrane moist. NECK: Supple. No carotid bruit. No JVD or thyromegaly. CHEST: Bilaterally symmetrical. HEART: S1 and S2 positive. LUNGS: Clear to auscultation. ABDOMEN: Soft. Positive bowel sounds. No organomegaly. EXTREMITIES: No edema. No cyanosis. NEUROLOGIC: The patient is awake and alert. Moving all 4 extremities. No focal deficits. MEDICATIONS: Brovana, Coreg, Demadex, vitamin D, DuoNeb, Ecotrin, Lipitor, Pulmicort, Singulair, Solu-Medrol tapering doses, Tylenol, Zoloft, and Zithromax. LABORATORY DATA: We do not have recent labs, but I reviewed old labs. ASSESSMENT AND PLAN: Ms. Maricel Woody is 73-year-old female with chronic obstructive lung disease with exacerbation of chronic obstructive pulmonary disease, hypoventilation syndrome, pneumonia, sleep apnea syndrome, pulmonary hypertension, obesity, cardiac diastolic dysfunction, electrolyte imbalance, Gastrointestinal and deep venous thrombosis prophylaxis. Repeat labs. Discussion done with the nieceAfua. All questions answered. The patient is getting physical therapy. We will follow. Bernice Martinez MD
[2018-09-12] MEDS: Cefepime IV 2 gm in NS 2 GM/100 ML BAG IVPB SCH ×2 (05:50→17:46)
[2018-09-12] MEDS: MethylPREDNISolone 40 mg Vial IVP SCH (05:51)
[2018-09-12 07:18] LABS: HEMOGLOBIN 10.8 g/dL (12.0-16.0); MEAN CELL VOLUME 96.9 fl (80.0-105.0); MEAN CORPUSCULAR HEMOGLOBIN 27.8 pg (25.0-35.0); MEAN CORPUSCULAR HGB CONC 28.7 g/dl (31.0-37.0); MEAN PLATELET VOLUME 9.8 fl (7.0-11.0); RBC 3.88 10^6/uL (3.5-6.1); WHITE BLOOD COUNT 15.6 10^3/uL (4.5-11.0)
[2018-09-12] MEDS: Arformoterol 15 mcg/2 ml Inh Sol IH SCH ×2 (07:36→21:19)
[2018-09-12] MEDS: Budesonide 0.5 mg/2 ml Inhal Susp UD IH SCH ×2 (07:36→21:19)
[2018-09-12 07:38] LABS: ALBUMIN 3.4 g/dL (3.0-4.8); ALT/SGPT 44 U/L (7-56); AST/SGOT 42 U/L (14-36); BLOOD UREA NITROGEN 22 mg/dL (7-21); GFR NON-AFRICAN AMERICAN > 60
[2018-09-12] MEDS: Sildenafil 20 MG TAB PO SCH ×2 (10:02→17:44)
--- NOTE | 2018-09-12 15:13 | PN ---
DATE: 09/12/2018 PULMONARY PROGRESS NOTE REFERRING PHYSICIAN: Bernice Martinez MD SUBJECTIVE: The patient is sitting in chair in room, no acute distress. No overnight events reported. Reports not using BiPAP last night. No headache, rhinitis, cough, chest pain, abdominal pain, nausea, vomiting, diarrhea, leg pain, or leg swelling reported. The patient does report shortness of breath with exertion. OBJECTIVE: GENERAL: No acute distress. VITAL SIGNS: Blood pressure 100/49, pulse 64, and temperature 98. HEENT: Moist mucus membranes. Crowded airway. Mallampati score of 4. NECK: Supple. No JVD. CARDIOVASCULAR: S1 and S2 audible. LUNGS: Fair airflow bilaterally. Few rhonchi. ABDOMEN: Soft and nontender. No distension. No organomegaly. EXTREMITIES: No bilateral lower extremity edema. NEUROLOGIC: Awake, alert, verbal, and follows commands. MEDICATIONS: Reviewed. Tylenol 650 mg every 4 hours p.r.n., Diamox 250 mg twice a day, Duoneb 3 mL inhalation every 2 hours p.r.n., Brovana 15 mcg every 12 hours, aspirin 81 mg daily, Lipitor 10 mg at dinner, Zithromax 500 mg daily, Pulmicort 0.5 mg every 12 hours, Coreg 3.125 mg twice a day, cefepime 2 gram twice a day, vitamin B12 1000 mcg IM daily, ergocalciferol 50,000 units weekly, Pepcid 20 mg at bedtime, Heparin 5000 units subcutaneous every 8 hours, lisinopril 2.5 mg daily, Solu-Medrol 20 mg twice a day, Singulair 10 mg at bedtime and Revatio 20 mg twice a day. LABORATORY DATA: WBC 15.6, RBC 3.88, hemoglobin 10.8, hematocrit 37.6, and platelets 353. Sodium 140, potassium 4.8, chloride 98, carbon dioxide 43, anion gap 4, BUN 22, creatinine 0.9, GFR is greater than 60, random glucose 93, calcium 10, phosphorus 2.2, and magnesium 2.3. Total bilirubin 0.4, AST 42, ALT 44, alkaline phosphatase 81, total protein 6.7, albumin 3.4, globulin 3.4 and albumin-globulin ratio 1.0. IMPRESSION AND PLAN: Chronic obstructive lung disease with exacerbation, hypoventilation syndrome, pneumonia, sleep apnea syndrome, pulmonary hypertension, cardiac diastolic dysfunction, electrolyte imbalance, morbid obesity. Pulmonary point of view, the patient doing well. Continue to encourage bilevel positive airway pressure use at bedtime. Sleep apnea precaution, head of bed elevated at 45 degrees, continue bronchodilators, diuretics. We will discontinue Zithromax and decrease Solu-Medrol to 20 mg daily. We believe the patient is noncompliant with treatment plan when she goes home which maybe a cause for frequent admissions. Need to determine what is the best and safe discharge plan for this patient. Fall precautions. This patient was seen and examined with Dr. Gonzáles. Discussed assessment and plan as described above. Seen and examined with Katrin Leach, nurse practitioner. Discussed assessment and plan as described above. Thank you for this consult. We will follow with you. Hany Wilkes APN Oh Gonzáles MD [facility]
[2018-09-13] MEDS: Cefepime IV 2 gm in NS 2 GM/100 ML BAG IVPB SCH ×2 (05:25→17:08)
[2018-09-13] MEDS: MethylPREDNISolone 40 mg Vial IVP SCH (05:26)
[2018-09-13] MEDS: Budesonide 0.5 mg/2 ml Inhal Susp UD IH SCH ×2 (07:28→19:37)
[2018-09-13] MEDS: Arformoterol 15 mcg/2 ml Inh Sol IH SCH ×2 (07:28→19:36)
[2018-09-13] MEDS ORDERED: MethylPREDNISolone 40 mg Vial IVP SCH (10:00)
[2018-09-13] MEDS: Sildenafil 20 MG TAB PO SCH ×2 (10:37→17:08)
--- NOTE | 2018-09-13 11:24 | PN ---
DATE: 09/13/2018 PULMONARY PROGRESS NOTE REFERRING PHYSICIAN: Bernice Martinez MD SUBJECTIVE: The patient is sitting up in rehab gym. No acute distress. Reports not using BiPAP machine last night. No headache, rhinitis, cough, chest pain, abdominal pain, nausea, vomiting, diarrhea, leg pain, or leg swelling reported. The patient does report shortness of breath with exertion. OBJECTIVE: GENERAL: No acute distress. VITAL SIGNS: Blood pressure 118/67, pulse 60, and temperature 98.9 and oxygen saturation 98% on nasal cannula. HEENT: Moist mucus membranes. Mallampati score of 4. Crowded airway. NECK: Supple. No JVD. CARDIOVASCULAR: S1 and S2, audible. LUNGS: Few scattered rhonchi. Fair airflow. ABDOMEN: Soft and nontender. No distension. No organomegaly. EXTREMITIES: No bilateral lower extremity edema. NEUROLOGIC: Awake, alert and verbal. Follows commands. MEDICATIONS: Reviewed. Tylenol 650 mg every 4 hours p.r.n., pain and fever, Diamox 250 mg twice a day, Duoneb 3 mL inhalation every 2 hours p.r.n., Brovana 15 mcg every 12 hours, aspirin 81 mg daily, Lipitor 10 mg at dinner, Pulmicort 0.5 mg every 12 hours, Coreg 3.125 mg twice a day, cefepime 2 gram twice a day, vitamin B12 1000 mcg IM daily, ergocalciferol 50,000 units 1 cap weekly, Pepcid 20 mg at bedtime, Heparin 5000 units subcutaneous every 8 hours, lisinopril 2.5 mg daily, Solu-Medrol 20 mg daily, Singulair 10 mg at bedtime and Revatio 20 mg twice a day. LABORATORY DATA: Reviewed. No new labs. IMPRESSION AND PLAN: Chronic obstructive lung disease with exacerbation, hypoventilation syndrome, pneumonia, sleep apnea syndrome, pulmonary hypertension, cardiac diastolic dysfunction, morbid obesity, electrolyte imbalance. Pulmonary point of view, discuss in depth with patient recent BiPAP refusal, educated the patient regarding sleep apnea consequences such as pulmonary hypertension and exacerbation of the patient's current pulmonary hypertension. The patient expressed verbally understanding and stated that she will use continuous positive airway pressure machine. So, continue to encourage continuous positive airway pressure machine, sleep apnea precaution, head of bed elevated at 45 degrees, continue bronchodilators and diuretics. Continue Solu-Medrol 20 mg daily. Continue sildenafil. Fall precautions. When discharged patient should go home on 2 weeks of Diamox and should have labs done as outpatient before continuing medication. The patient was seen and examined with Dr. Gonzáles. Discussed assessment and plan as described above. The patient was seen and examined with Hany Wilkes APN. Discussed assessment and plan as described above. Thank you for this consult. We will follow with you. Hany Wilkes APN Oh Gonzáles MD [facility]
--- NOTE | 2018-09-13 15:16 | PN ---
DATE: 09/12/2018 SUBJECTIVE: The patient is a 73-year-old female. The patient was seen and examined at the bedside on 09/12/2018, looking comfortable. Family, cousin was near the bedside. The patient has no cough, no shortness of breath, nausea, vomiting, or diarrhea. No hematuria or hematochezia. No headache or dizziness. Discussion done with the patient and the patient's family. All questions answered. PHYSICAL EXAMINATION: VITAL SIGNS: Blood pressure 100/40, pulse 70, temperature 98.2, respiratory rate 18. HEENT: Head; normocephalic and atraumatic. Eyes; PERRLA. Extraocular muscles intact. Conjunctivae clear. Nose patent. Mucous membranes moist. NECK: Supple. No carotid bruits, JVD, or thyromegaly. CHEST: Bilaterally symmetrical. HEART: S1 and S2 positive. LUNGS: Clear to auscultation. ABDOMEN: Soft. Bowel sounds present. No organomegaly. EXTREMITIES: No edema. No cyanosis. NEUROLOGIC: The patient is awake, alert. Follows simple commands. MEDICATIONS: Tylenol, Diamox, DuoNeb, Brovana, Pulmicort, Coreg, Pepcid, heparin, Singulair, Solu-Medrol tapering dose. LABORATORY DATA: White blood cells 15.6, hemoglobin 10.8, hematocrit 37.6, platelets 353. Sodium 140, potassium 4.8, BUN 22, creatinine 0.9. ASSESSMENT AND PLAN: Ms. Maricel Woody is a 73-year-old patient with history of multiple medical problems, obesity, chronic obstructive lung disease with exacerbation, hypoventilation syndrome, history of pneumonia, sleep apnea syndrome, pulmonary hypertension, cardiac diastolic dysfunction, electrolyte imbalance, getting physical therapy and rehab, getting Solu-Medrol and antibiotics. Noncompliant with bilevel positive airway pressure. Plan is continue physical therapy. Gastrointestinal and deep venous thrombosis prophylaxis. Length of time discussion done with the family. We will follow up. Bernice Martinez MD
[2018-09-13] MEDS: Albuterol-Ipratrop 3 mg / 0.5 (3 ml) UD IH PRN (23:34)
[2018-09-14] MEDS: MethylPREDNISolone 40 mg Vial IVP SCH (05:13)
[2018-09-14] MEDS: Cefepime IV 2 gm in NS 2 GM/100 ML BAG IVPB SCH (05:16)
--- NOTE | 2018-09-14 05:19 | PN ---
DATE: 09/13/2018 SUBJECTIVE: The patient is a 73-year-old female. The patient was seen and examined at bedside on 09/13/2018, looking comfortable. No fever. No chills. No hematuria. No hematochezia. No headache. No dizziness. No chest pain. No palpitations. Coughing and shortness of breath is better. PHYSICAL EXAMINATION: VITAL SIGNS: Blood pressure 120/60, pulse 60, temperature 98.9, oxygen saturation 98% on nasal cannula. HEENT: Head; normocephalic and atraumatic. Eyes; PERRLA. Extraocular muscles are intact. Conjunctivae clear. Nose patent. NECK: Supple. No carotid bruit, JVD or thyromegaly. CHEST: Bilaterally symmetrical. HEART: S1 and S2 positive. LUNGS: Clear to auscultation. ABDOMEN: Soft. Bowel sounds present. No organomegaly. EXTREMITIES: No edema. No cyanosis. NEUROLOGIC: The patient is awake, alert. Moving all four extremities. No focal deficits. MEDICATIONS: Tylenol, Diamox, DuoNeb, Brovana, Lipitor, Pulmicort, Coreg, cefepime, ergocalciferol, Pepcid, heparin, lisinopril, Solu-Medrol tapering doses, Singulair and Revatio. LABORATORY DATA: We do not have recent labs, but I reviewed old labs. ASSESSMENT AND PLAN: Mrs. Maricel Woody is a 73-year-old female with multiple medical problems, obesity, had at least three hospitalizations for observation for chronic obstructive pulmonary disease. Now she is in TCU getting physical therapy. Hypoventilation syndrome, history of pneumonia, sleep apnea syndrome, pulmonary hypertension, cardiac diastolic dysfunction, morbid obesity, electrolyte imbalance. Should be using BIPAP but refusing. Pulmonary is on the case, continue to encourage the patient to use BIPAP, sleep apnea precautions, getting physical therapy, tapering dose of Solu-Medrol. Continue sildenafil, fall precautions. She is on home oxygen therapy. The patient will go home on two weeks of Diamox and should have labs done as outpatient before continuing the medications. Actually, the patient is moving to other [place] and she will get another doctor there and they will continue treatment there. I urged that the patient can take medical records with her. We will follow up. Bernice Martinez MD [facility] # [id number]
[2018-09-14] MEDS: Arformoterol 15 mcg/2 ml Inh Sol IH SCH ×2 (08:35→20:48)
[2018-09-14] MEDS: Budesonide 0.5 mg/2 ml Inhal Susp UD IH SCH ×2 (08:39→20:48)
[2018-09-14] MEDS: Sildenafil 20 MG TAB PO SCH (10:01)
--- NOTE | 2018-09-14 15:02 | PN ---
DATE: 09/14/2018 PULMONARY PROGRESS NOTE REFERRING PHYSICIAN: Bernice Martinez MD SUBJECTIVE: The patient is lying in bed. No acute distress. No overnight events reported. Reports using BiPAP machine last night. No headache, rhinitis, cough, chest pain, abdominal pain, nausea, vomiting, diarrhea, leg pain, or leg swelling reported. The patient does have shortness of breath with exertion. PHYSICAL EXAMINATION GENERAL: No acute distress. VITAL SIGNS: Blood pressure 114/67, pulse 65, oxygen saturation 97% on nasal cannula, and afebrile. HEENT: Moist mucus membranes. Mallampati score of 4. Crowded airway. NECK: Supple. No JVD. CARDIOVASCULAR: S1 and S2 audible. LUNGS: Fair airflow bilaterally. ABDOMEN: Soft and nontender. No distention. No organomegaly. EXTREMITIES: No bilateral lower extremity edema. NEUROLOGIC: Awake, alert, verbal, and follows commands. MEDICATIONS: Reviewed. Tylenol 650 mg every 4 hours p.r.n. for pain and fever, Diamox 250 mg twice a day, DuoNeb 3 mL every 2 hours p.r.n., Brovana 15 mcg every 12 hours, Ecotrin 81 mg daily, Lipitor 10 mg at dinner, Pulmicort 0.5 mg every 12 hours, Coreg 3.125 mg twice a day, ergocalciferol 50,000 units daily, Pepcid 20 mg at bedtime, Heparin 5000 units subcutaneous every 8 hours, lisinopril 2.5 mg daily, Solu-Medrol 20 mg daily, Singulair 10 mg at bedtime, and Revatio 20 mg twice a day. LABORATORY DATA: Reviewed. No new labs since yesterday. IMPRESSION AND PLAN: Chronic obstructive lung disease with exacerbation, hypoventilation syndrome, pneumonia, sleep apnea syndrome, pulmonary hypertension, cardiac diastolic dysfunction, morbid obesity, and electrolyte imbalance. Discharge planning in progress. The patient is scheduled to be discharged out of state. The patient requires Trilogy noninvasive ventilation. The patient has chronic respiratory failure, due to severe chronic obstructive pulmonary disease. The patient requires Trilogy, noninvasive ventilation in AVAPS mode at home and battery backup as there cannot be any interruptions to therapy. This is insured night time and day time use to maintain CO2 levels within a normal range. Plan has been discussed with the patient. Bilevel positive airway pressure tried and failed. The patient had a diagnosis of pneumonia, which has been treated and has been resolved, evident by negative procalcitonin level. The patient also needs oxygen therapy at home. When the patient is discharged, she should go home on 2 weeks of Diamox and should have labs done as an outpatient before continuing medication. Continue sildenafil, fall precautions, sleep apnea precautions, head of bed elevated at 45 degrees. This patient was seen and examined with Dr. Gonzáles. Discussed assessment and plan as described above. The patient was seen and examined with Hany Wilkes APN. Discussed assessment and plan as described above. Thank you for this consult. We will follow with you. Hany Wilkes APN Oh Gonzáles MD [facility]
[2018-09-14 17:12] VITALS: RESP 18; TEMP 99.8; O2SAT 96
[2018-09-15] MEDS: MethylPREDNISolone 40 mg Vial IVP SCH (05:20)
[2018-09-15] MEDS: Budesonide 0.5 mg/2 ml Inhal Susp UD IH SCH (07:18)
[2018-09-15] MEDS: Arformoterol 15 mcg/2 ml Inh Sol IH SCH (07:18)
[2018-09-15 08:16] VITALS: BP 101/52; PULSE 60
--- NOTE | 2018-09-15 08:47 | PN ---
DATE: 09/14/2018 SUBJECTIVE: The patient is 73-year-old female. The patient was seen and examined at bedside on 09/14/2018, looking comfortable. Shortness of breath is better. Cough is better. No nausea or vomiting. No hematuria. No hematochezia. No headache. No dizziness. PHYSICAL EXAMINATION: VITAL SIGNS: Blood pressure 114/50, pulse 70, oxygen saturation 98% on nasal cannula, respiratory rate 18. HEENT: Head is normocephalic, atraumatic. Eyes, PERRLA. Extraocular muscles intact. Conjunctivae clear. Nose patent. Mucous membrane moist. NECK: Supple. No carotid bruit. No JVD or thyromegaly. CHEST: Bilateral symmetrical. HEART: S1 and S2 positive. LUNGS: Clear to auscultation. ABDOMEN: Soft. Bowel sounds positive. No organomegaly. EXTREMITIES: No edema. No cyanosis. NEUROLOGIC: Patient is awake, alert, moving all 4 extremities. No focal deficits. MEDICATIONS: Tylenol, Diamox, DuoNeb, Ecotrin, Lipitor, Pulmicort, Coreg, vitamin D, Pepcid, heparin, lisinopril, Solu-Medrol, Singulair, Revatio. LABORATORY DATA: We do not have recent labs, but I reviewed old labs. ASSESSMENT AND PLAN: The patient is a 73-year-old female with chronic obstructive lung disease who has at least 3 admissions for chronic obstructive lung disease. At this time, she came with exacerbation of chronic obstructive lung disease, hypoventilation syndrome, pneumonia, sleep apnea syndrome, pulmonary hypertension, cardiac diastolic dysfunction, morbid obesity, electrolyte imbalance. Count Team Clerk is on the case. Length of exam discussion done with the patient's niece, brothers, and sisters. The patient is living alone, cannot do her ADLs. Now, her family is in [place]. She has to go there. The patient requires trilogy noninvasive ventilation. The patient has chronic respiratory failure due to severe chronic obstructive pulmonary disease. The patient requires trilogy noninvasive ventilation in AVAPS mode at home and battery backup as they cannot be very to therapy. This is to ensure night time and daytime use to maintain carbon dioxide level within normal limits. Provide carbon dioxide narcosis. Plan has been discussed with the patient and the patient's family, fiberglass dowel drawing operator, nursing staff, and physical therapy. BiPAP tried and failed. This is her third admission. multiple admissions with consulted fiberglass dowel drawing operator. Gastrointestinal and deep venous prophylaxis. Repeat labs. We will followup. Bernice Martinez MD
[2018-09-15] MEDS: Sildenafil 20 MG TAB PO SCH (09:22)
--- NOTE | 2018-09-15 13:09 | PN ---
DATE: 09/15/2018 PULMONARY PROGRESS NOTE REFERRING PHYSICIAN: Bernice Martinez MD. SUBJECTIVE: The patient is sitting up at bedside. No acute distress. No overnight events reported. The patient does report shortness of breath with exertion. No cough, rhinitis, chest pain, abdominal pain, nausea, vomiting, diarrhea, leg pain, or leg swelling. No headache reported. OBJECTIVE: GENERAL: No acute distress. VITAL SIGNS: Blood pressure 101/52, pulse 60, oxygen saturation 96% on nasal cannula. HEENT: Moist mucus membranes. Mallampati score of 4. Crowded airway. NECK: Supple. No JVD. CARDIOVASCULAR: S1 and S2 audible. RESPIRATORY: Fair airflow bilaterally. ABDOMEN: Soft, nontender. No distention. No organomegaly. EXTREMITIES: No bilateral lower extremity edema. NEUROLOGIC: Awake, alert, verbal, follows commands. MEDICATIONS: Reviewed. Tylenol 650 every 4 hours p.r.n., Diamox 250 mg twice a day, DuoNeb 3 mL inhalation every 2 hours p.r.n., Brovana 15 mcg every 12 hours, aspirin 81 mg daily, Lipitor 10 mg at dinner, Pulmicort 0.5 mg every 12 hours, Coreg 3.125 mg twice a day, ergocalciferol 50,000 units weekly, Pepcid 20 mg at bedtime, heparin 5000 units subcutaneous every 8 hours, lisinopril 2.5 mg daily, Solu-Medrol 20 mg daily, Singulair 10 mg at bedtime, prednisone 10 mg daily, sildenafil 20 mg twice a day. LABORATORY DATA: Reviewed. No new labs yesterday. IMPRESSION AND PLAN: Chronic obstructive lung disease with exacerbation, hypoventilation syndrome, pneumonia, which has since resolved; sleep apnea syndrome, pulmonary hypertension, cardiac diastolic dysfunction, morbid obesity and electrolyte imbalance. The patient is scheduled to be discharged home today. The patient requires oxygen therapy at home. When the patient is discharged, she should go home on 2 weeks of Diamox and should have labs done as an outpatient before continuing medication. Continue sildenafil, fall precautions, sleep apnea precautions, head of bed elevated at 45 degrees. Continue inhaled bronchodilators. This patient seen and examined with Dr. Gonzáles. Discussed assessment and plan as described above. This patient seen and examined with Hany Wilkes, nurse practitioner. Discussed assessment and plan as described above. Thank you for this consult. We will follow with you. Hany Wilkes APN Oh Gonzáles MD
[2018-09-15] MEDS: Albuterol-Ipratrop 3 mg / 0.5 (3 ml) UD IH PRN (13:38)
== END 2018-09-15 13:46 | disposition home or self-care (01) | DRG 190 ==
LOC: TRCU 21:51
PROVIDERS: ADMIT Internal Medicine; ATTEND Internal Medicine
PROC: F07Z9FZ Gait Training/Functional Ambulation Treatment using Assistive, Adaptive, Supportive or Protective Equipment (ICD-10-PCS; principal; 2018-09-08)
PROC: F08Z4FZ Home Management Treatment using Assistive, Adaptive, Supportive or Protective Equipment (ICD-10-PCS; 2018-09-08)
PROC: 3E0F7GC Introduction of Other Therapeutic Substance into Respiratory Tract, Via Natural or Artificial Opening (ICD-10-PCS; 2018-09-08)
PROC: 5A09457 Assistance with Respiratory Ventilation, 24-96 Consecutive Hours, Continuous Positive Airway Pressure (ICD-10-PCS; 2018-09-10)
DX: J44.1 Chronic obstructive pulmonary disease with (acute) exacerbation (principal); J18.9 Pneumonia, unspecified organism; J96.10 Chronic respiratory failure, unspecified whether with hypoxia or hypercapnia; E66.2 Morbid (severe) obesity with alveolar hypoventilation; J44.0 Chronic obstructive pulmonary disease with (acute) lower respiratory infection; Z79.2 Long term (current) use of antibiotics; Z79.52 Long term (current) use of systemic steroids; I27.20 Pulmonary hypertension, unspecified; E87.5 Hyperkalemia; Z68.36 Body mass index [BMI] 36.0-36.9, adult; G47.30 Sleep apnea, unspecified; Z99.81 Dependence on supplemental oxygen; Z87.891 Personal history of nicotine dependence; Z91.19 Patient's noncompliance with other medical treatment and regimen